=== PATIENT | female | born 1995 | race Two or more races ===

== ENCOUNTER → 2020-07-28 10:43 | Outpatient (BNVA) | payer OTHER, SELFPAY | PROVIDERS: PCP Internal Medicine; Visit Provider Advanced Practice Midwife | DX: Z76.89 Persons encountering health services in other specified circumstances (principal) ==

== ENCOUNTER 2020-08-13 10:23 | Outpatient (REF) | payer OTHER, SELFPAY ==
--- NOTE | 2020-08-13 10:35 | US_ITS ---
EXAMINATION: US OBSTETRICAL CLINICAL INFORMATION: 24-year-old at 19.2 weeks of gestation Suspected anomaly COMPARISON: 06/25/2020 TECHNIQUE: Real-time transabdominal ultrasound was performed using C1-5 megahertz transducer. FINDINGS: A single, active, fetus is seen in vertex presentation. The placenta is anterior without previa, and the amniotic fluid volume is wnl. MEASUREMENTS: 1. Biparietal Diameter: 4.9 cm; 20.6 wks 2. Occipital Frontal Diameter: 6.3 cm 3. Head Circumference: 17.9 cm; 20.3 wks 4. Abdominal Circumference: 16.5 cm; 21.4 wks 5. Femur Length: 3.3 cm; 20.2 wks 6. Humerus Length: 3.23 cm; 20.6 wks 7. Tibia Length: 2.91 cm; 20.5 wks 8. Ulna Length: 3.1 cm; 21.4 wks 9. Lateral ventricle: 0.59 cm 10. Cerebellum: 2.0 cm; 20.5 wks 11. Cisterna Magna: 0.3 cm 12. Nuchal Fold: 5.31 mm 13. Heart Rate: 160 beats per minute Rt ovary: normal Lt ovary: normal Cervical length 4.0 cm on T/A. GESTATIONAL AGE: 1. Established GA: 19.2 wks 2. GA from [facility]: 20.6 wks ESTIMATED DATE OF DELIVERY: 1. Established CRISS: 01/05/2021 2. CRISS from [facility]: 12/25/2020 ANATOMY: The visualized anatomy includes but not limited to: 1. Cranium: Normal 2. Intracranial anatomy: cavum septum pellucidi, lateral ventricles, choroid plexus, cerebellum, posterior fossa, third and fourth ventricles. 3. face: orbits, lip/palate, profile, nasal bone 4. Heart: four-chamber view of the heart, ventricular septum, foramen ovale, pulmonary vein, left and right outflow tracts, three-vessel view, 3 vessel trachea view, aortic and ductal arches, situs.. 5. Diaphragm: Normal 6. Abdominal wall: Normal 7. Cord Insertion: Normal 8. Spine: Cervical, thoracic, lumbar, sacral. 9. Stomach: Normal size and shape 10. Right Kidney: Normal 11. Left Kidney: Normal 12. 3 vessel cord: Normal 13. Upper extremity: Open hands, fifth digit. 14. Lower extremity: Tibia, fibula, bilateral feet. 15. Bladder: Normal 16. Genitalia: Male, patient aware US/US OB /maternal detail IMPRESSION: 1. Single, living, intrauterine with appropriate biometry. 2. Normal survey DISCUSSION: I reviewed today's ultrasound findings. We discussed the limitations of ultrasound in diagnosing aneuploidy and other congenital abnormalities. I reviewed the differences between screening test and diagnostic test. Amniocentesis was discussed and declined. She had low risk N IPT. She was informed that the baseline incidence of congenital abnormalities is approximately 3-5%. Not all these conditions are diagnosable in utero. RECOMMENDATIONS: Thank you for allowing me to participate in her care. Visiting time 25 minutes. Majority of this visit was spent reviewing and discussing her care.
== END 2020-08-13 10:24 | disposition home or self-care (01) ==
LOC: HO.US 10:23
PROVIDERS: Visit Provider Advanced Practice Midwife
DX: Z34.82 Encounter for supervision of other normal pregnancy, second trimester (principal); Z36.3 Encounter for antenatal screening for malformations
CPT/HCPCS: 76811

== ENCOUNTER → 2020-08-23 10:35 | Outpatient (BNVA) | payer OTHER, SELFPAY | PROVIDERS: Visit Provider Obstetrics & Gynecology | DX: Z76.89 Persons encountering health services in other specified circumstances (principal) ==

== ENCOUNTER 2020-09-20 08:50 | Outpatient (REF) | payer OTHER, SELFPAY ==
[2020-09-20 12:03] LABS: Hematocrit 32.5 % (37-47); Mean Corpuscular HGB Conc 30.8 g/dl (31.0-35.0); Mean Corpuscular Hemoglobin 23.9 pg (27.0-33.0); Mean Corpuscular Volume 77.6 fL (80-98); Mean Platelet Volume 9.7 fL (9.4-12.3); Platelet Count 271 X10*3/uL (160-400); Red Blood Count 4.19 X10*6/uL (4.20-5.50); Red Cell Distribution Width 13.9 % (11.0-16.0); White Blood Count 12.9 X10*3/uL (4.8-10.8)
== END 2020-09-20 08:51 | disposition home or self-care (01) ==
LOC: HO.LAB 08:50
PROVIDERS: Visit Provider Advanced Practice Midwife
DX: Z34.82 Encounter for supervision of other normal pregnancy, second trimester (principal)
CPT/HCPCS: 36415; 85027

== ENCOUNTER 2020-09-27 10:16 | Emergency (ER) | payer OTHER, SELFPAY ==
[2020-09-27] VITALS (7 sets, daily range): BP systolic 103–132; BP diastolic 61–80; PULSE 82–137; RESP 20; TEMP 36.6–36.7; O2SAT 99–100; BMI 33.3
--- NOTE | 2020-09-27 10:38 | XR_ITS ---
EXAMINATION: XR CHEST CLINICAL INFORMATION: SOB. COMPARISON: None TECHNIQUE: Frontal view of the chest was obtained. FINDINGS: No significant abnormality is noted involving the heart, lungs, mediastinum, bony thorax or soft tissues. XR/XR chest 1V IMPRESSION: Unremarkable chest examination.
--- NOTE | 2020-09-27 10:38 | ECG_ITS ---
Test Reason : WEAKNESS Blood Pressure : / mmHG Vent. Rate : 109 BPM Atrial Rate : 109 BPM P-R Int : 114 ms QRS Dur : 070 ms QT Int : 320 ms P-R-T Axes : 043 025 047 degrees QTc Int : 430 ms Sinus tachycardia Otherwise normal ECG When compared with ECG of 07-NOV-2018 15:15, No significant change was found Referred By: Nahed Caballero Electronically Signed By:MIGUEL KUMAR
--- NOTE | 2020-09-27 10:55 | ED_ITS ---
HPI - SOB/Dyspnea General Chief Complaint: Dyspnea Stated Complaint: 25WKS PREGANANT,BLURRY VISION,SOB Time Seen by Provider: 09/27/20 10:29 Source: patient and EMS Mode of arrival: EMS History of Present Illness HPI Narrative: 24-year-old female a at 25 weeks gestation presenting to ED complaining of worsening SOB and palpitations x1 month. Also reports associated chills, headache, fatigue, dizziness and episode of blurry vision this morning. Denies vision changes at present. Dizziness described as room spinning, worse with position changes. Admits tested negative for COVID-19 recently. Denies abdominal pain, vaginal bleeding / discharge, CP, recent travel, LE edema, fever. Patient recently seen at [facility] ED for similar symptoms MD elicited complaint: shortness of breath Related Data Home Medications Medication Instructions Recorded Confirmed ondansetron 4 mg disintegrating mg PO DIRECTED 07/28/20 09/21/20 tablet vitamin with calcium 1 tab PO DAILY 07/28/20 09/21/20 no.72-iron 27 mg-folic acid 1 mg tablet pyridoxine (vitamin B6) 25 mg mg PO 07/28/20 09/21/20 tablet albuterol sulfate 90 mcg/actuation INHALATION 09/21/20 09/21/20 aerosol inhaler Previous Rx's Medication Instructions Recorded ferrous sulfate 325 mg (65 mg 325 mg PO DAILY #30 tab 09/20/20 iron) tablet Allergies Allergy/AdvReac Type Severity Reaction Status Date / Time No Known Allergies Allergy Verified 09/21/20 12:12 [No Known Allergies*] Review of Systems Review of Systems: Constitutional: No Weight loss, No Fever, + Chills, No Night Sweats, + Fatigue, + Malaise ENT/Mouth: No Hearing loss, No Ear Pain, No Nasal Congestion, No Sinus Pain, No Hoarseness, No sore throat Eyes: No Eye Pain, No Swelling, + Vision Changes (resolved) Cardiovascular: No Chest Pain, + SOB, + Dyspnea on Exertion, No Edema, + Palpitations Respiratory: No Cough, No Sputum, No Wheezing Gastrointestinal: No Nausea, No Vomiting, No Diarrhea, No Constipation, No Abdominal pain Genitourinary: No irregular bleeding, No Dysuria, No Urinary Frequency, No Hematuria, No vaginal discharge Musculoskeletal: No joint pain, No Myalgias, No Joint Swelling Skin: No Skin Lesions, No rash Neuro: No Weakness, No Numbness, +Dizziness, + Headache Yes all other systems are reviewed and are negative [facility] Past Medical History Attestation statement: The following information was validated with the patient. Medical History History of hysteroscopy Supervision of other normal , antepartum Surgical History Hx of section Hx of myomectomy Family History Family History Family/Other History of breast cancer in female Father Hypertension History of prostate cancer Mother Hypertension Hx of diabetes mellitus Hx of cancer of lung Asthma Sister Hypertension Hx of thyroid disease Maternal Grandfather Hypertension Hx of cancer of lung Maternal Grandmother Hypertension Hx of cardiovascular disorder Paternal Grandfather Hypertension Paternal Grandmother Hypertension Social History Social History Alcohol intake: never Smoking Status: Never smoker Use of substances other than those prescribed or required for medical reasons: No Advance Directives: No Advance Directives Information Provided: No Sexual orientation: Straight/Heterosexual Gender identity: female Physical Exam Vital Signs: Vital Signs: Last Vital Signs Temp 97.9 F 09/27/20 16:28 Pulse 109 H 09/27/20 16:42 Resp 20 09/27/20 16:28 BP 104/65 09/27/20 16:42 Pulse Ox 99 09/27/20 16:28 Body Mass Index 33.3 Const: Other: anxious General: cooperative and healthy appearing Orientation/consciousness: patient oriented x3 Limitations: no limitations HENMT: Head: Yes normal to inspection Ears: hearing grossly normal bilaterally General nose exam: Normal external nose present Face and sinus: Yes normal facial exam Eyes: General: appearance normal, both eyes and all related structures Pupils: Equal, round and reactive pupils present EOM: EOMs intact bilaterally Neck: Neck: Yes normal visual inspection and Yes no meningeal signs Resp: Effort & Inspection: normal respiratory effort Auscultation: clear to auscultation bilaterally, no rales, no rhonchi and no wheezes Cardio: Rate: regular rate Heart sounds: S1 normal heart sound present and S2 normal heart sound present GI: Other: gravid uterus Palpation (GI): Soft to palpation, nontender, no guarding and not rigid Skin: Rashes: no rashes Wounds: no wounds Neuro: General: patient oriented x3 and no meningeal signs Cranial nerves: Yes Equal, round and reactive pupils present Gait exam (Neuro): Normal gait present Extrem: Other: no LE edema or calf tenderness General: Yes normal to inspection Course Course Course Narrative: - mild leukocytosis of 12.8, H&H with slight drop 9.5/30.3 (expected during normal ) -1256-- Obtained records from [facility], patient discharged with albuterol inhaler, was COVID-19 negative, had normal CXR, but was not worked up for PE > will obtain d-dimer -1410-- D-dimer at upper limit of normal at 272 > will obtain bilateral venous duplex ultrasounds - UA contaminated > will obtain repeat - COVID-19/influenza/RSV negative, CXR unremarkable -TSH WNL, B/L venous duplex's negative > consulted VALENTE Bryant and he recommended V/Q scan to r/o PE -1647-- V/Q scan negative --1700-- ED care transferred to [facility] pending repeat UA MDM - SOB/Dyspnea MDM Narrative Medical decision making narrative: 24-year-old female a at 25 weeks gestation presenting to ED complaining of worsening SOB and palpitations x1 month. Also reports associated chills, headache, fatigue, dizziness and e pisode of blurry vision this morning. On exam tachycardic, NAD, anxious, lungs CTA, gravid uterus, abdomen soft/nontender, no LE edema. Concern for COVID- 19/viral syndrome vs thyroid dysfunction vs anxiety. PE on ddx but lower with symptoms x1 month. Lower concern for ACS Plan: EKG, labs, CXR, UA, reassess Lab Data Result diagrams: 09/27/20 11:08 09/27/20 11:08 Labs: Lab Results 09/27/20 09/27/20 09/27/20 Range/Units 11:08 11:08 11:08 WBC 12.8 H (4.8-10.8) X10*3/uL RBC 3.95 L (4.20-5.50) X10*6/uL Hgb 9.5 L (12.0-16.0) g/dl Hct 30.3 L (37-47) % MCV 76.7 L (80-98) fL MCH 24.1 L (27.0-33.0) pg MCHC 31.4 (31.0-35.0) g/dl RDW 14.3 (11.0-16.0) % Plt Count 229 (160-400) X10*3/uL MPV 9.4 (9.4-12.3) fL Immature Gran % (Auto) 1.6 H (0.0-0.4) % Neut % (Auto) 84.8 H (45-73) % Lymph % (Auto) 10.3 L (20-40) % [place] % (Auto) 2.7 (2-11) % Eos % (Auto) 0.4 (0-4) % Baso % (Auto) 0.2 (0-2) % Lymph # (Auto) 1.3 (1.2-4.9) X10*3/uL [place] # (Auto) 0.4 (0.1-1.2) X10*3/uL Eos # (Auto) 0.1 (0.0-0.4) X10*3/uL Baso # (Auto) 0.0 (0.0-0.2) X10*3/uL Abs Immat Gran (auto) 0.21 H (0.00-0.03) X10*3/uL Absolute Neuts (auto) 10.9 H (2.0-8.3) X10*3/uL Absolute Nucleated RBC 0.000 (0.0-0.012) X10*3/uL Nucleated RBC % (auto) 0.0 (0.0-0.2) /100WBC D-Dimer NG/ML Hold Blue Top Sodium 136 (135-145) mmol/L Potassium 3.9 (3.3-5.1) mmol/l Chloride 104 (96-108) mmol/L Carbon Dioxide 23 (22-29) mmol/L Anion Gap 13 (12-20) BUN 10 (9-16) mg/dL Creatinine 0.55 (0.5-1.4) mg/dL Estim Creat Clear Calc 155.6 Estimated GFR > 60 Random Glucose 90 (60-115) mg/dL Calcium 8.8 (8.4-10.2) mg/dL Magnesium 1.7 (1.6-2.6) mg/dL Total Bilirubin 0.5 (0.0-1.0) mg/dL Direct Bilirubin < 0.2 (0.0-0.5) mg/dL AST 13 (5-31) U/L ALT 9 (0-31) U/L Alkaline Phosphatase 82 (39-117) U/L Troponin I High Sens (<3.5-17.0) ng/L B-Natriuretic Peptide (<100) pg/mL Total Protein 6.1 L (6.5-8.0) g/dL Albumin 3.3 L (3.5-5.0) g/dL TSH 0.81 (0.32-4.0) mIU/mL Beta HCG, Quant 70626 mIU/mL Urine Color Urine Appearance Urine pH (5.0-8.0) Ur Specific [place] (1.005-1.025) Urine Protein (NEG-TRACE) MG/DL Urine Glucose (UA) (NEG) MG/DL Urine Ketones (NEG) MG/DL Urine Blood (NEG) Urine Nitrite (NEG) Ur Leukocyte Esterase (NEG) Urine RBC (0) /HPF Urine WBC (0-4) /HPF Ur Squamous Epith Cells /LPF Urine Bacteria /LPF Coronavirus (PCR) NEGATIVE (Negative) Influenza Type A (PCR) NEGATIVE (Negative) Influenza Type B (PCR) NEGATIVE (Negative) RSV RNA Qual (PCR) NEGATIVE (Negative) 09/27/20 09/27/20 09/27/20 Range/Units 11:08 11:08 11:08 WBC (4.8-10.8) X10*3/uL RBC (4.20-5.50) X10*6/uL Hgb (12.0-16.0) g/dl Hct (37-47) % MCV (80-98) fL MCH (27.0-33.0) pg MCHC (31.0-35.0) g/dl RDW (11.0-16.0) % Plt Count (160-400) X10*3/uL MPV (9.4-12.3) fL Immature Gran % (Auto) (0.0-0.4) % Neut % (Auto) (45-73) % Lymph % (Auto) (20-40) % [place] % (Auto) (2-11) % Eos % (Auto) (0-4) % Baso % (Auto) (0-2) % Lymph # (Auto) (1.2-4.9) X10*3/uL [place] # (Auto) (0.1-1.2) X10*3/uL Eos # (Auto) (0.0-0.4) X10*3/uL Baso # (Auto) (0.0-0.2) X10*3/uL Abs Immat Gran (auto) (0.00-0.03) X10*3/uL Absolute Neuts (auto) (2.0-8.3) X10*3/uL Absolute Nucleated RBC (0.0-0.012) X10*3/uL Nucleated RBC % (auto) (0.0-0.2) /100WBC D-Dimer 272 NG/ML Hold Blue Top SEE NOTE Sodium (135-145) mmol/L Potassium (3.3-5.1) mmol/l Chloride (96-108) mmol/L Carbon Dioxide (22-29) mmol/L Anion Gap (12-20) BUN (9-16) mg/dL Creatinine (0.5-1.4) mg/dL Estim Creat Clear Calc Estimated GFR Random Glucose (60-115) mg/dL Calcium (8.4-10.2) mg/dL Magnesium (1.6-2.6) mg/dL Total Bilirubin (0.0-1.0) mg/dL Direct Bilirubin (0.0-0.5) mg/dL AST (5-31) U/L ALT (0-31) U/L Alkaline Phosphatase (39-117) U/L Troponin I High Sens < 3.5 (<3.5-17.0) ng/L B-Natriuretic Peptide 13 (<100) pg/mL Total Protein (6.5-8.0) g/dL Albumin (3.5-5.0) g/dL TSH (0.32-4.0) mIU/mL Beta HCG, Quant mIU/mL Urine Color YELLOW Urine Appearance CLOUDY Urine pH 7.0 (5.0-8.0) Ur Specific [place] 1.010 (1.005-1.025) Urine Protein NEG (NEG-TRACE) MG/DL Urine Glucose (UA) NEG (NEG) MG/DL Urine Ketones NEG (NEG) MG/DL Urine Blood NEG (NEG) Urine Nitrite NEG (NEG) Ur Leukocyte Esterase 2+ H (NEG) Urine RBC 0 (0) /HPF Urine WBC 5-9 H (0-4) /HPF Ur Squamous Epith Cells 4+ /LPF Urine Bacteria 3+ /LPF Coronavirus (PCR) (Negative) Influenza Type A (PCR) (Negative) Influenza Type B (PCR) (Negative) RSV RNA Qual (PCR) (Negative) Discharge Plan Discharge Clinical Impression: Acute dyspnea, Heart palpitations Patient Disposition: Home, Self-Care Instructions: Dyspnea (ED) Additional Instructions: your chest X-ray and ultrasound were within normal limits your blood work was re-assuring in the ED you need to see your OBGYN If you have constant or worsening shortness of breath, chest pain, abdominal pain, nausea, vomiting, vaginal bleeding or discharge return to the ED Prescriptions: No Action albuterol sulfate 90 mcg/actuation HFA aerosol inhaler inhalation RF: 0 ondansetron 4 mg tablet,disintegrating PO DIRECTED RF: 0 pyridoxine (vitamin B6) 25 mg tablet PO RF: 0 PrePlus 27 mg iron- 1 mg tablet 1 tab PO DAILY RF: 0 ferrous sulfate 325 mg (65 mg iron) tablet 325 mg PO DAILY Qty: 30 RF: 4 Referrals: Arun Herman MD [Physician] - 2 days (YOUR OBGYN) Print Language: Greek
[2020-09-27 11:18] LABS: Basophils Percent Auto 0.2 % (0-2); Eosinophils Absolute Auto 0.1 X10*3/uL (0.0-0.4); Eosinophils Percent Auto 0.4 % (0-4); Hematocrit 30.3 % (37-47); Hemoglobin 9.5 g/dl (12.0-16.0); Imm Gran Abs Auto 0.21 X10*3/uL (0.00-0.03); Imm Gran Pct Auto 1.6 % (0.0-0.4); Lymphocytes Absolute Auto 1.3 X10*3/uL (1.2-4.9); Lymphocytes Percent Auto 10.3 % (20-40); MANUAL DIFF FLAG NO; Mean Corpuscular HGB Conc 31.4 g/dl (31.0-35.0); Mean Corpuscular Hemoglobin 24.1 pg (27.0-33.0); Mean Corpuscular Volume 76.7 fL (80-98); Mean Platelet Volume 9.4 fL (9.4-12.3); Monocytes Absolute Auto 0.4 X10*3/uL (0.1-1.2); Monocytes Percent Auto 2.7 % (2-11); Neutrophils Absolute Auto 10.9 X10*3/uL (2.0-8.3); Neutrophils Percent Auto 84.8 % (45-73); Platelet Count 229 X10*3/uL (160-400); Red Blood Count 3.95 X10*6/uL (4.20-5.50); Red Cell Distribution Width 14.3 % (11.0-16.0); White Blood Count 12.8 X10*3/uL (4.8-10.8)
[2020-09-27 11:23] LABS: Glucose Urine UA NEG (NEG); Leukocyte Esterase Urine 2+ (NEG); Nitrite Urine NEG (NEG); Urine Blood NEG (NEG); Urine Ketones NEG (NEG); Urine Protein NEG (NEG-TRACE)
[2020-09-27 11:24] LABS: Appearance Urine CLOUDY; Color Urine YELLOW
[2020-09-27 11:31] LABS: Bacteria Urine 3+ /LPF; RBC Urine 0 /HPF (0); Squamous Epithelial Cell Urine 4+ /LPF
[2020-09-27 12:04] LABS: Alanine Aminotransferase 9 U/L (0-31); Albumin Level 3.3 g/dL (3.5-5.0); Alkaline Phosphatase 82 U/L (39-117); Anion Gap 13 (12-20); Aspartate Amino Transferase 13 U/L (5-31); B Type Natriuretic Peptide 13 pg/mL (<100); Bilirubin Direct < 0.2 mg/dL (0.0-0.5); Bilirubin Total 0.5 mg/dL (0.0-1.0); Blood Urea Nitrogen 10 mg/dL (9-16); Calcium 8.8 mg/dL (8.4-10.2); Carbon Dioxide 23 mmol/L (22-29); Chloride 104 mmol/L (96-108); Creatinine Clr Calc Pharmacy 155.6; Estimated Glomerular Filt Rate > 60; Glucose Random 90 mg/dL (60-115); Magnesium 1.7 mg/dL (1.6-2.6); Potassium 3.9 mmol/l (3.3-5.1); Sodium 136 mmol/L (135-145); Total Protein 6.1 g/dL (6.5-8.0); Troponin-I High Sensitivity < 3.5 ng/L (<3.5-17.0)
[2020-09-27 12:28] LABS: TSH reflex Free T4 0.81 mIU/mL (0.32-4.0)
[2020-09-27 12:37] LABS: Influenza A PCR NEGATIVE (Negative); Influenza B PCR NEGATIVE (Negative); Resp Syncy Virus RNA Qual PCR NEGATIVE (Negative); SARS COV2 PCR INHOUSE NEGATIVE (Negative)
[2020-09-27 13:18] LABS: D Dimer 272 NG/ML
--- NOTE | 2020-09-27 13:56 | US_ITS ---
EXAMINATION: US VENOUS ULTRASOUND WITH DOPPLER LOWER EXTREMITY, BILATERAL CLINICAL INFORMATION: Bilateral lower extremity pain and swelling COMPARISON: None TECHNIQUE: Ultrasound of the deep veins is performed from the hip to the calf with compression sonography and color and pulse Doppler assessment. Spectral analysis with color-flow imaging is performed. FINDINGS: RIGHT: There is normal venous compression and respiratory variation and augmented flow. The visualized common femoral vein, superficial femoral vein, profunda femoral vein, popliteal vein, and the trifurcation region shows no evidence of deep venous thrombosis. There is no significant popliteal fossa cyst. LEFT: There is normal venous compression and respiratory variation and augmented flow. The visualized common femoral vein, superficial femoral vein, profunda femoral vein, popliteal vein, and the trifurcation region shows no evidence of deep venous thrombosis. There is no significant popliteal fossa cyst. US/US venous duplex LE BI IMPRESSION: No evidence of DVT.
--- NOTE | 2020-09-27 14:08 | PC.NURSE ---
provider and interpretter at bedside to update on plan of care, awaiting us for r/o dvt
--- NOTE | 2020-09-27 14:21 | PC.NURSE ---
ultrasound at bedside for study
--- NOTE | 2020-09-27 15:19 | NM_ITS ---
EXAMINATION: PULMONARY PERFUSION STUDY CLINICAL INFORMATION: Rule out pulmonary embolism in . COMPARISON: No previous lung scan is available for comparison. A radiograph the chest dated 09/27/2020, the same date as this lung scan, is available for comparison. TECHNIQUE: Following the intravenous injection of 1.0 mCi Tc-99m MAA, an 8-view perfusion study was performed using a gamma scintillation camera. A reduced dose was administered because the patient is . FINDINGS: No segmental perfusion defects are present. There is homogeneous distribution of activity bilaterally. There are no focal anatomic appearing perfusion defects present. NM/NM pul perfusion IMPRESSION: Normal radionuclide lung perfusion scan.
--- NOTE | 2020-09-27 16:09 | PC.NURSE ---
updated on plan of care, taken to nuc med for perf scan.
[2020-09-27] MEDS: Nitrofurantoin Monohyd/M-Cryst 100 MG CAPSULE PO (18:01)
== END 2020-09-27 18:51 | disposition home or self-care (01) ==
PROVIDERS: Physician Assistant; Emergency Provider Emergency Medicine; PCP Hospitalist
DX: O26.892 Other specified pregnancy related conditions, second trimester (principal); R06.00 Dyspnea, unspecified; R00.2 Palpitations; Z20.828 Contact with and (suspected) exposure to other viral communicable diseases; Z3A.25 25 weeks gestation of pregnancy
CPT/HCPCS: 0241U; 36415; 71045; 78580; 80048; 80076; 81001; 83735; 83880; 84443; 84484; 84702; 85025; 85379; 87086; 93005; 93970; 99284; 99285; A9540

== ENCOUNTER 2020-10-04 08:36 | Outpatient (REF) | payer OTHER, SELFPAY ==
[2020-10-04 12:25] LABS: Glucose 1 Hour PP 50gm Dose 156 mg/dL (60-140)
[2020-10-04 12:47] LABS: HIV AB/AG Nonreactive (Nonreactive); HIV Num 1 0.09 S/CO (0.00-0.99)
[2020-10-04 12:48] LABS: Syphilis Screen Nonreactive (Nonreactive)
== END 2020-10-04 08:37 | disposition home or self-care (01) ==
LOC: HO.LAB 08:36
PROVIDERS: PCP Hospitalist; Visit Provider Advanced Practice Midwife
DX: Z34.82 Encounter for supervision of other normal pregnancy, second trimester (principal)
CPT/HCPCS: 86780; 87389

== ENCOUNTER 2020-10-06 06:18 | Outpatient (REF) | payer OTHER, SELFPAY ==
[2020-10-06 07:41] LABS: Glucose Fasting 98 mg/dL (60-99)
[2020-10-06 08:34] LABS: Glucose 1 Hour 169 mg/dL
[2020-10-06 10:00] LABS: Glucose 2 Hour 152 mg/dL
[2020-10-06 10:43] LABS: Glucose 3 Hour 147 mg/dL
== END 2020-10-06 06:19 | disposition home or self-care (01) ==
LOC: HO.LAB 06:18
PROVIDERS: PCP Hospitalist; Visit Provider Advanced Practice Midwife
DX: O99.810 Abnormal glucose complicating pregnancy (principal); Z3A.00 Weeks of gestation of pregnancy not specified
CPT/HCPCS: 82951

== ENCOUNTER → 2020-10-18 08:59 | Outpatient (BNVA) | payer OTHER, SELFPAY | PROVIDERS: Visit Provider Advanced Practice Midwife | DX: O99.810 Abnormal glucose complicating pregnancy (principal); O34.219 Maternal care for unspecified type scar from previous cesarean delivery; Z79.899 Other long term (current) drug therapy | CPT/HCPCS: 81003; 99212 ==

== ENCOUNTER → 2020-10-19 08:03 | Outpatient (REF) | payer OTHER, SELFPAY ==
--- NOTE | 2020-10-19 08:08 | CA_ITS ---
Transthoracic Echocardiogram Patient (Last, First, Middle): Carol Huertas, Gender: Female Date of : 1995 Age: 24 Procedure Date: 10/19/2020 Procedure Type: Transthoracic Echocardiogram Location: OP Height: 157.48 cm Weight: 85.28 kg BSA: 1.86 m2 Heart Rate: bpm BP: 120 / 68 mmHg [employer] Manager: Referring MD: Andrew Burgess MD Symptoms: R06.02 - Shortness of breath Study Quality: Good ECG Rhythm: Sinus tachycardia Conclusions: - The left ventricular systolic function is normal. The visually estimated ejection fraction is between 60-65%. - There is mild tricuspid valve regurgitation. Findings Left Ventricle Normal left ventricular cavity size. There is normal left ventricular wall thickness. The left ventricular systolic function is normal. The visually estimated ejection fraction is between 60-65%. There is no evidence of regional wall motion abnormalities. Diastolic function is normal for age. Right Ventricle Normal right ventricular cavity size and systolic function. Atria Both atria are normal in size. Aortic Valve There is a normal trileaflet aortic valve. There is no aortic valve stenosis. There is no aortic valve regurgitation. Mitral Valve The mitral valve appears normal. There is no mitral valve regurgitation. There is no mitral valve stenosis. Pulmonic Valve The pulmonic valve was not well visualized. There is trace pulmonic valve regurgitation. Tricuspid Valve Normal tricuspid valve structure. There is mild tricuspid valve regurgitation. The pulmonary artery systolic pressure is normal. Great Vessels The aortic annulus, sinuses of valsalva, and asc aorta are normal in size. Venous The inferior vena cava is normal in size and collapses greater than 50% with inspiration. Pericardium/Pleural There is no evidence of pericardial effusion. Prior Study Comparison No prior study available for comparison. Measurements 2D Linear Measurements IVSd: 0.78 0.6-0.9/0.6-1.0 cm LVIDd: 4.58 3.9-5.3/4.2-5.9 cm LVIDd Index: 2.46 2.4-3.2/2.2-3.1 cm/m2 LVIDs: 2.94 2.0-3.6 cm LVPWd: 0.71 0.7-1.1 cm Ao Root: 2.90 2.1-3.5 cm LA Diam: 3.20 2.7-3.8/3.0-4.0 cm LAIDs Index: 1.72 1.5-2.3 cm/m2 LV Mass: 133.02 67-162/88-224 g LV Mass Index: 71.52 43-95/49-115 g/m2 LVOT Diam: 2.00 3.0+(-)1.3 cm Mitral Valve MV Pk E: 0.51 MV PK A: 0.83 MV Decel Time: 100.00 E/A: 0.60 E'Lateral: 19.40 E'Medial: 14.70 E/E' Med: 3.50 E/E' Lat: 2.60 PHT: 29.00 MVA PHT: 7.59 Decel Woods: 5.08 Aortic Valve AoV Pk Tuan: 1.65 AoV Mn Tuan: 1.17 AoV VTI: 0.33 AoV Pk Grad: 11.00 Aov Mn Grad: 7.00 MIGDALIA Cont.VTI: 2.40 LVOT LVOT Pk Tuan: 1.40 LVOT Mn Tuan: 0.88 LVOT VTI: 0.25 LVOT Pk Grad: 8.00 LVOT Mn Grad: 4.00 LVOT Diam: 2.00 LVOT Area: 3.14 Diastolic Function MV Pk E: 0.51 MV Pk A: 0.83 E/A: 0.60 E'Medial: 14.70 E/E' Med: 3.50 E' Laterial: 19.40 E/E' Lat: 2.60 Tricuspid Valve TR Pk Tuan: 2.60 TR Pk Grad: 27.00 RA Press: 3.00 RVSP: 30.00 Great Vessels Aorta Ao Root-2D: 2.90 2.0-3.7 cm Ao Asc: 3.00 2.1-3.4 cm Pulmonary Valve PV Pk Tuan: 1.34 Peak PV Grad: 7.00 Shunting QP:QS: 2.00 Updated in Other Vendor System with Status of Final Andrew Burgess MD electronically signed on 10/19/2020 11:47:13 AM with status of Final
--- NOTE | 2020-10-19 08:15 | ECG_ITS ---
Hook-up date: 2020-10-19 09:04:00 Duration: 30:13:00 Test Indications: TACHYCARDIA Medications: [id number] QRS complexes * Ventricular ectopics which represent % of total QRS comp. 14 Supraventricular ectopics which represent <1 % of total QRS comp. * Paced QRS complexs which represent % of total QRS comp. VENTRICULAR ECTOPY * Isolated * Bigeminal Cycles * Couplets * Runs * Beats in Runs * Beats LONGEST at * BPM at :: -- * Beats FASTEST at * BPM at :: -- SUPRAVENTRICULAR ECTOPY 14 Isolated 0 Couplets 0 Runs 0 Beats in Runs * Beats LONGEST at * BPM at :: -- * Beats FASTEST at * BPM at :: -- HEART RATES 78 MIN at 04:38:53 2020-10-20 110 AVG 167 MAX at 18:44:33 2020-10-19 LONGEST RR 0.8080 secs at 04:44:10 2020-10-20 S-T LEVELS Channel 1 - 128 mm at 09:04:00 2020-10-19 - 128 mm at 09:04:00 2020-10-19 Channel 2 - 128 mm at 09:04:00 2020-10-19 - 128 mm at 09:04:00 2020-10-19 Channel 3 - 128 mm at 02:82:31 -- - 128 mm at 02:82:31 Basic rhythm Normal sinus rhythm No long pause or profound bradycardia Frequent Sinus tachycardia , 72% of time HR > 100 bpm No dangerous dysrhythm periods Patient reported symptoms of SOB correlated with baseline rhythm Referred By: Andrew Burgess Overread By: АННА LIU MD
== END ==
LOC: HO.CARD 08:03
PROVIDERS: Visit Provider Internal Medicine
DX: R06.02 Shortness of breath (principal); R00.0 Tachycardia, unspecified
CPT/HCPCS: 93225; 93226; 93306

== ENCOUNTER → 2020-10-28 14:09 | Outpatient (BNVA) | payer OTHER, SELFPAY | PROVIDERS: PCP Hospitalist; Visit Provider Obstetrics & Gynecology | DX: Z34.82 Encounter for supervision of other normal pregnancy, second trimester (principal) | CPT/HCPCS: 99212 ==

== ENCOUNTER → 2020-11-05 14:15 | Outpatient (BNVA) | payer OTHER, SELFPAY | PROVIDERS: PCP Hospitalist; Visit Provider Obstetrics & Gynecology | DX: Z34.82 Encounter for supervision of other normal pregnancy, second trimester (principal); O34.219 Maternal care for unspecified type scar from previous cesarean delivery | CPT/HCPCS: 99212 ==

== ENCOUNTER → 2020-11-11 14:03 | Outpatient (BNVA) | payer OTHER, SELFPAY | PROVIDERS: PCP Hospitalist; Visit Provider Internal Medicine ==

== ENCOUNTER 2021-06-28 09:33 | Outpatient (REF) | payer OTHER, SELFPAY | END 2021-06-28 09:34 | disposition home or self-care (01) | LOC: HO.LAB 09:33 | PROVIDERS: PCP Hospitalist; Visit Provider Internal Medicine | DX: Z20.822 Contact with and (suspected) exposure to COVID-19 (principal) | CPT/HCPCS: C9803; U0003; U0005 ==

== ENCOUNTER 2021-09-12 06:43 | Day surgery (SDC) | payer OTHER, SELFPAY ==
[2021-09-12] VITALS (14 sets, daily range): BP systolic 90–113; BP diastolic 23–78; PULSE 69–96; RESP 14–20; TEMP 36.2–37.1; O2SAT 97–100; BMI 29.3
--- NOTE | ~2021-09-12 | US_ITS ---
EXAMINATION: US OBSTETRICAL ULTRASOUND CLINICAL INFORMATION: Left lower quadrant pain and positive test COMPARISON: None. LMP: Unsure TECHNIQUE: Transabdominal and transvaginal pelvic ultrasound was performed. Transvaginal exam was performed for better visualization of the uterus and ovaries. FINDINGS: The uterus is anteverted and retroflexed and measures 12 x 4.8 x 5.7 cm in dimension. Endometrial thickness measures 0.6 cm. No intrauterine is seen. The right ovary is normal-appearing and measures 3 x 2.3 x 2.3 cm. Left ovary measures 4.6 x 4.9 x 4.2 cm and is enlarged. There is a 3.9 x 4.1 x 4.3 cm minimally complex left ovarian cyst. Adjacent to the medial left ovary in the left adnexa is a thick-walled cyst measuring 1.9 x 1.7 x 1.7 cm. This contains a smaller simple cyst measuring 0.2 cm suggestive of an ectopic with yolk sac. There is a large amount of complex fluid seen in the pelvis. There is also more solid-appearing hyperechoic soft tissue in the posterior cul-de-sac suggestive of blood clot. This measures approximately 3 x 4 cm. Findings are suggestive of hemoperitoneum or ruptured ectopic . US/US OB <= 14 weeks fetus IMPRESSION: Left adnexal ectopic with yolk sac. Large amount of complex fluid in the pelvis and more echogenic solid appearing area suggestive of hemoperitoneum/blood clot. Findings are suggestive of a ruptured ectopic . Findings were communicated to Dr. Desouza by the research technologist on 09/12/2021 at 11:45 AM and at the completion of the dictation on 09/12/2021 at 11:53 AM.
--- NOTE | ~2021-09-12 | US_ITS ---
EXAMINATION: US OBSTETRICAL ULTRASOUND CLINICAL INFORMATION: Left lower quadrant pain and positive test COMPARISON: None. LMP: Unsure TECHNIQUE: Transabdominal and transvaginal pelvic ultrasound was performed. Transvaginal exam was performed for better visualization of the uterus and ovaries. FINDINGS: The uterus is anteverted and retroflexed and measures 12 x 4.8 x 5.7 cm in dimension. Endometrial thickness measures 0.6 cm. No intrauterine is seen. The right ovary is normal-appearing and measures 3 x 2.3 x 2.3 cm. Left ovary measures 4.6 x 4.9 x 4.2 cm and is enlarged. There is a 3.9 x 4.1 x 4.3 cm minimally complex left ovarian cyst. Adjacent to the medial left ovary in the left adnexa is a thick-walled cyst measuring 1.9 x 1.7 x 1.7 cm. This contains a smaller simple cyst measuring 0.2 cm suggestive of an ectopic with yolk sac. There is a large amount of complex fluid seen in the pelvis. There is also more solid-appearing hyperechoic soft tissue in the posterior cul-de-sac suggestive of blood clot. This measures approximately 3 x 4 cm. Findings are suggestive of hemoperitoneum or ruptured ectopic . US/US OB transvaginal IMPRESSION: Left adnexal ectopic with yolk sac. Large amount of complex fluid in the pelvis and more echogenic solid appearing area suggestive of hemoperitoneum/blood clot. Findings are suggestive of a ruptured ectopic . Findings were communicated to Dr. Desouza by the cardiac cath lab technologist on 09/12/2021 at 11:45 AM and at the completion of the dictation on 09/12/2021 at 11:53 AM.
--- NOTE | 2021-09-12 07:23 | ED.ABDPAIN ---
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 Mode of arrival: ambulatory Limitations: no limitations History of Present Illness MD elicited complaint: abdominal pain Pertinent past history: none Onset (ago): day(s) (1) Pain Consistency: constant Location: LLQ Severity: moderate Quality: stabbing Radiation: none Migration to: no migration Exacerbating factors: movement Relieving factors: nothing Associated symptoms: nausea Related Data Home Medications Medication Instructions Recorded Confirmed pyridoxine (vitamin B6) 25 mg mg PO 07/28/20 07/26/21 tablet Previous Rx's Medication Instructions Recorded ferrous sulfate 325 mg (65 mg 325 mg PO BID #30 tab 10/04/20 iron) tablet FreeStyle Lite Strips (blood sugar 4 strip MISCELLANEOUS QID 30 Days 10/12/20 diagnostic) #100 strip NS alcohol swabs (Alcohol Wipes) 4 pad TOPICAL .4x day 90 Days #100 10/12/20 ea blood-glucose meter (FreeStyle #1 ea 10/12/20 [place] Lite) lancets 28 gauge (FreeStyle #100 ea 10/12/20 Lancets) cyclobenzaprine 5 mg tablet 5 mg PO TID PRN 30 Days #30 tab 07/12/21 ibuprofen 600 mg tablet 600 mg PO Q8H PRN 30 Days #90 tab 07/12/21 Allergies Allergy/AdvReac Type Severity Reaction Status Date / Time No Known Allergies Allergy Verified 07/26/21 13:19 [No Known Allergies*] Review of Systems Review of Systems Constitutional : No Weight loss, No Fever, No Chills ENT/Mouth : No sore throat, No Rhinorrhea Eyes: No Swelling, No Redness Cardiovascular : No Chest Pain, No SOB, NoEdema Respiratory : No Cough, No Sputum, No Wheezing Gastrointestinal : Positive Nausea, no Vomiting, no Diarrhea, positive abdominal Pain, No Hematochezia, No Melena Genitourinary : No Dysuria, No Urinary Frequency, No Hematuria, No Urgency Musculoskeletal : No joint pain, No Myalgias, No Joint Swelling Skin : No Skin Lesions, No rash Neuro : No Weakness, No Numbness, pos Dizziness, No Headache Psych : No Anxiety/Panic, No Depression Heme/Lymph: No Bruising, No Lymphadenopathy Endocrine : No Polyuria, No Polydipsia All other systems reviewed and are negative. Physical Exam Vital Signs: Vital Signs: Last Vital Signs Temp 98.8 F 09/12/21 11:44 Pulse 71 09/12/21 11:44 Resp 20 09/12/21 11:44 BP 110/78 09/12/21 11:44 Pulse Ox 100 09/12/21 11:44 Body Mass Index 29.3 Appearance: Alert. Oriented X3. No acute distress. Eyes: Pupils equal, round and reactive to light. ENT: Pharynx normal. Neck: Normal inspection. Neck supple. CVS: Normal heart rate and rhythm. Pulses normal. Respiratory: No respiratory distress. Breath sounds normal. Abdomen: Soft and moderate ttp in LLQ no rebound Skin: Skin warm and dry. Normal skin color. Normal skin turgor. Extremities: No lower extremity edema. No calf ttp Neuro: Oriented X 3. No motor deficit. No sensory deficit. Course Course Course Narrative: + test the patient told us she had tubal ligation and was not - informed her of toradol though low risk and will switch to US to r/o ectopic US called 1137am - large amount of free fluid, COVID, type and screen ordered, L sided ectopic with likely rupture Dr. Herman aware 1144am to go to OR, patient NPO since last night BP 110/78 HR 79 MDM - Abdominal Pain MDM Narrative Medical decision making narrative: 25 yo female with no sig PMH here with c/o LLQ pain no diarrhea at this time will need labs, IVF IV toradol for pain, CT scan of LLQ to evaluate for possible cyst, diverticulitis, renal colic. Dispo pe results and findings. Differential Diagnosis Differential diagnosis: Likely abdominal pain, calculus of kidney, constipation and diverticulitis; Unlikely aortic dissection or acute appendicitis Lab Data Result diagrams: 09/12/21 07:37 09/12/21 07:37 Labs: Lab Results 09/12/21 09/12/21 09/12/21 Range/Units 07:37 07:37 08:43 WBC 15.9 H (4.8-10.8) X10*3/uL RBC 4.78 (4.20-5.50) X10*6/uL Hgb 10.1 L (12.0-16.0) g/dl Hct 34.4 L (37.0-47.0) % MCV 72.0 L (80.0-98.0) fL MCH 21.1 L (27.0-33.0) pg MCHC 29.4 L (31.0-35.0) g/dl RDW 15.5 (11.0-16.0) % Plt Count 337 (160-400) X10*3/uL MPV 10.1 (9.4-12.3) fL Immature Gran % (Auto) 0.4 (0.0-0.4) % Neut % (Auto) 85.2 H (45-73) % Lymph % (Auto) 11.5 L (20-40) % [place] % (Auto) 2.2 (2-11) % Eos % (Auto) 0.4 (0-4) % Baso % (Auto) 0.3 (0-2) % Lymph # (Auto) 1.8 (1.2-4.9) X10*3/uL [place] # (Auto) 0.4 (0.1-1.2) X10*3/uL Eos # (Auto) 0.1 (0.0-0.4) X10*3/uL Baso # (Auto) 0.1 (0.0-0.2) X10*3/uL Abs Immat Gran (auto) 0.06 H (0.00-0.03) X10*3/uL Absolute Neuts (auto) 13.6 H (2.0-8.3) x10*3/uL Absolute Nucleated RBC 0.000 (0.0-0.012) X10*3/uL Nucleated RBC % (auto) 0.0 (0.0-0.2) /100WBC Sodium 137 (135-145) mmol/L Potassium 4.2 (3.3-5.1) mmol/L Chloride 107 (96-108) mmol/L Carbon Dioxide 21 L (22-29) mmol/L Anion Gap 13 (12-20) BUN 13 (9-16) mg/dL Creatinine 0.71 (0.5-1.4) mg/dL Estim Creat Clear Calc 121.2 Estimated GFR > 60 Random Glucose 102 (60-115) mg/dL Calcium 8.7 (8.4-10.2) mg/dL Magnesium 1.9 (1.6-2.6) mg/dL Total Bilirubin 0.3 (0.0-1.0) mg/dL Direct Bilirubin < 0.2 (0.0-0.5) mg/dL AST 15 (5-31) U/L ALT 13 (0-31) U/L Alkaline Phosphatase 61 D (39-117) U/L Total Protein 7.3 (6.5-8.0) g/dL Albumin 4.4 D (3.5-5.0) g/dL Lipase 22 (8-78) U/L Beta HCG, Quant 5929 mIU/mL Urine Color YELLOW Urine Appearance CLEAR Urine pH 6.0 (5.0-8.0) Ur Specific [place] 1.020 (1.005-1.025) Urine Protein NEG (NEG-TRACE) MG/DL Urine Glucose (UA) NEG (NEG) MG/DL Urine Ketones NEG (NEG) MG/DL Urine Blood NEG (NEG) Urine Nitrite NEG (NEG) Ur Leukocyte Esterase TRACE H (NEG) Urine RBC 0-2 (0) /HPF Urine WBC 1-4 (0-4) /HPF Ur Squamous Epith Cells 2+ /LPF Urine Bacteria TRACE /LPF Urine Mucus TRACE /LPF Urine Test (NEGATIVE) 09/12/21 Range/Units 08:43 WBC (4.8-10.8) X10*3/uL RBC (4.20-5.50) X10*6/uL Hgb (12.0-16.0) g/dl Hct (37.0-47.0) % MCV (80.0-98.0) fL MCH (27.0-33.0) pg MCHC (31.0-35.0) g/dl RDW (11.0-16.0) % Plt Count (160-400) X10*3/uL MPV (9.4-12.3) fL Immature Gran % (Auto) (0.0-0.4) % Neut % (Auto) (45-73) % Lymph % (Auto) (20-40) % [place] % (Auto) (2-11) % Eos % (Auto) (0-4) % Baso % (Auto) (0-2) % Lymph # (Auto) (1.2-4.9) X10*3/uL [place] # (Auto) (0.1-1.2) X10*3/uL Eos # (Auto) (0.0-0.4) X10*3/uL Baso # (Auto) (0.0-0.2) X10*3/uL Abs Immat Gran (auto) (0.00-0.03) X10*3/uL Absolute Neuts (auto) (2.0-8.3) x10*3/uL Absolute Nucleated RBC (0.0-0.012) X10*3/uL Nucleated RBC % (auto) (0.0-0.2) /100WBC Sodium (135-145) mmol/L Potassium (3.3-5.1) mmol/L Chloride (96-108) mmol/L Carbon Dioxide (22-29) mmol/L Anion Gap (12-20) BUN (9-16) mg/dL Creatinine (0.5-1.4) mg/dL Estim Creat Clear Calc Estimated GFR Random Glucose (60-115) mg/dL Calcium (8.4-10.2) mg/dL Magnesium (1.6-2.6) mg/dL Total Bilirubin (0.0-1.0) mg/dL Direct Bilirubin (0.0-0.5) mg/dL AST (5-31) U/L ALT (0-31) U/L Alkaline Phosphatase (39-117) U/L Total Protein (6.5-8.0) g/dL Albumin (3.5-5.0) g/dL Lipase (8-78) U/L Beta HCG, Quant mIU/mL Urine Color Urine Appearance Urine pH (5.0-8.0) Ur Specific [place] (1.005-1.025) Urine Protein (NEG-TRACE) MG/DL Urine Glucose (UA) (NEG) MG/DL Urine Ketones (NEG) MG/DL Urine Blood (NEG) Urine Nitrite (NEG) Ur Leukocyte Esterase (NEG) Urine RBC (0) /HPF Urine WBC (0-4) /HPF Ur Squamous Epith Cells /LPF Urine Bacteria /LPF Urine Mucus /LPF Urine Test POSITIVE H (NEGATIVE) Critical Care Time Critical Care Time Critical Care Time: Yes Total Critical Care Time: 45 Attestation: medical consult, IVF, type and screen, review of records, transfer to surgery I attest to this time spent taking care of the patient Discharge Plan Discharge Clinical Impression: Ruptured ectopic Abdominal pain Qualifiers: Abdominal location: left lower quadrant Qualified Code(s): R10.32 - Left lower quadrant pain Patient Disposition: Admitted As Inpatient [facility] Past Medical History Attestation statement: The following information was validated with the patient. Medical History Supervision of other normal , antepartum Surgical History History of hysteroscopy Hx of section Hx of myomectomy Family History Family History Family/Other History of breast cancer in female Father Hypertension History of prostate cancer Mother Hypertension Hx of diabetes mellitus Hx of cancer of lung Asthma Sister Hypertension Hx of thyroid disease Maternal Grandfather Hypertension Hx of cancer of lung Maternal Grandmother Hypertension Hx of cardiovascular disorder Paternal Grandfather Hypertension Paternal Grandmother Hypertension Social History Social History Housing: House Alcohol intake: never Patient Tobacco Use Status: Never used Tobacco e-Cigarette/Vaping Use: Never Used Second Hand Smoke Exposure: No Advance Directives: No Advance Directives Information Provided: Yes Patient : No service: No Current occupational status: unemployed Sexual orientation: Straight/Heterosexual Gender identity: Female
[2021-09-12] MEDS: Ketorolac Tromethamine 15 MG/ML VIAL 30 MG IVPUSH (07:41)
[2021-09-12] MEDS: ondansetron HCL 4 MG/2 ML VIAL IVPUSH (07:41)
[2021-09-12] MEDS: 0.9 % Sodium Chloride 1,000 ML 999 ML IVCONT (07:45)
[2021-09-12 07:48] LABS: MANUAL DIFF FLAG NO
[2021-09-12 07:50] LABS: Basophils Absolute Auto 0.1 X10*3/uL (0.0-0.2); Basophils Percent Auto 0.3 % (0-2); Eosinophils Absolute Auto 0.1 X10*3/uL (0.0-0.4); Eosinophils Percent Auto 0.4 % (0-4); Hematocrit 34.4 % (37.0-47.0); Hemoglobin 10.1 g/dl (12.0-16.0); Imm Gran Abs Auto 0.06 X10*3/uL (0.00-0.03); Imm Gran Pct Auto 0.4 % (0.0-0.4); Lymphocytes Absolute Auto 1.8 X10*3/uL (1.2-4.9); Lymphocytes Percent Auto 11.5 % (20-40); Mean Corpuscular HGB Conc 29.4 g/dl (31.0-35.0); Mean Corpuscular Hemoglobin 21.1 pg (27.0-33.0); Mean Platelet Volume 10.1 fL (9.4-12.3); Monocytes Absolute Auto 0.4 X10*3/uL (0.1-1.2); Monocytes Percent Auto 2.2 % (2-11); Neutrophils Absolute Auto 13.6 x10*3/uL (2.0-8.3); Neutrophils Percent Auto 85.2 % (45-73); Platelet Count 337 X10*3/uL (160-400); Red Blood Count 4.78 X10*6/uL (4.20-5.50); Red Cell Distribution Width 15.5 % (11.0-16.0); White Blood Count 15.9 X10*3/uL (4.8-10.8)
[2021-09-12 08:11] LABS: Alanine Aminotransferase 13 U/L (0-31); Albumin Level 4.4 g/dL (3.5-5.0); Alkaline Phosphatase 61 U/L (39-117); Anion Gap 13 (12-20); Aspartate Amino Transferase 15 U/L (5-31); Bilirubin Direct < 0.2 mg/dL (0.0-0.5); Bilirubin Total 0.3 mg/dL (0.0-1.0); Blood Urea Nitrogen 13 mg/dL (9-16); Calcium 8.7 mg/dL (8.4-10.2); Carbon Dioxide 21 mmol/L (22-29); Chloride 107 mmol/L (96-108); Creatinine Clr Calc Pharmacy 121.2; Estimated Glomerular Filt Rate > 60; Glucose Random 102 mg/dL (60-115); Lipase 22 U/L (8-78); Magnesium 1.9 mg/dL (1.6-2.6); Potassium 4.2 mmol/L (3.3-5.1); Sodium 137 mmol/L (135-145); Total Protein 7.3 g/dL (6.5-8.0)
[2021-09-12 08:50] LABS: Appearance Urine CLEAR; Color Urine YELLOW; Glucose Urine UA NEG (NEG); Leukocyte Esterase Urine TRACE (NEG); Nitrite Urine NEG (NEG); UACC Culture Trigger YES; UPreg QC Valid YES; Urine Blood NEG (NEG); Urine Ketones NEG (NEG); Urine Pregnancy POSITIVE (NEGATIVE); Urine Protein NEG (NEG-TRACE)
[2021-09-12 08:59] LABS: RBC Urine 0-2 /HPF (0); Squamous Epithelial Cell Urine 2+ /LPF
[2021-09-12 09:00] LABS: Bacteria Urine TRACE /LPF; Mucus Urine TRACE /LPF
[2021-09-12 09:51] LABS: HCG Quantitative 5929 mIU/mL
--- NOTE | 2021-09-12 11:57 | P.CONOB_ITS ---
[employer] - CN: HPI Data of Consult Consult date: 09/12/21 Primary Care Provider: Unknown Physician Consult Narrative Narrative: I was consulted on Carol Huertas who is a 25 year old female who presented emergency room with left lower quadrant pain since yesterday that increase in nature became very severe prior to presentation to emergency room LMP is unknown patient has history of laparoscopic tubal sterilization 9 months ago a stage. Urine test done with the emergency room was positive, but hCG came back as 5929, pelvic ultrasound done showed the following: Left adnexal ectopic with yolk sac. Large amount of complex fluid in the pelvis and more echogenic solid appearing area suggestive of hemoperitoneum/blood clot. Findings are suggestive of a ruptured ectopic . 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 Systems Review of Systems ROS Unobtainable: All systems reviewed & are unremarkable except as noted in HPI and below Cardiovascular: Denies Palpatations, Loss of consciousness or Chest pain Respiratory: Denies Cough, Wheezing or Shortness of breath Musculoskeletal: Denies Low back pain Gastrointestinal: Denies Heartburn, Constipation, Diarrhea, Nausea or Vomiting Genitourinary: Denies Pain with urination, Burning with urination or Urinary frequency Neurological: Denies Migranes Psychological: Denies Depression OB [facility] Past Medical History Medical History (Updated 09/12/21 @ 12:51 by Arun Herman MD) Sterilization Supervision of other normal , antepartum Family History Family History Family/Other History of breast cancer in female Father Hypertension History of prostate cancer Mother Hypertension Hx of diabetes mellitus Hx of cancer of lung Asthma Sister Hypertension Hx of thyroid disease Maternal Grandfather Hypertension Hx of cancer of lung Maternal Grandmother Hypertension Hx of cardiovascular disorder Paternal Grandfather Hypertension Paternal Grandmother Hypertension Surgical History Surgical History History of hysteroscopy Hx of section Hx of myomectomy Social History Social History Housing: House Alcohol intake: never Patient Tobacco Use Status: Never used Tobacco e-Cigarette/Vaping Use: Never Used Second Hand Smoke Exposure: No Advance Directives: No Advance Directives Information Provided: Yes Patient : No service: No Current occupational status: unemployed Sexual orientation: Straight/Heterosexual Gender identity: Female Meds Allergies Allergy/AdvReac Type Severity Reaction Status Date / Time No Known Allergies Allergy Verified 07/26/21 13:19 [No Known Allergies*] Active Medications: Current Medications Sodium Chloride (Ns) 1,000 mls @ 999 mls/hr IV .Q1H1M KAY Stop: 09/12/21 13:00 Home Medications Medication Instructions Recorded Confirmed Last Taken Type pyridoxine (vitamin B6) 25 mg mg PO 07/28/20 07/26/21 Unknown History tablet [employer] Physical Exam Vitals Vital signs: Temp Pulse Resp BP Pulse Ox 98.8 F 71 20 110/78 100 09/12/21 11:44 09/12/21 11:44 09/12/21 11:44 09/12/21 11:44 09/12/21 11:44 Body Mass Index 29.3 Constitutional General Appearance: Healthy appearing, Well-nourished and Well-developed Psychiatric Mood and Affect: active and alert, normal mood and normal affect Skin Appearance: No rashes and No lesions Lungs Respiratory Effort: No intercostal retractions Auscultation: Clear to auscultation Cardiovascular Auscultation: RRR Abdomen Auscultation/Inspection/Palpation: Normal bowel sounds, Tenderness, Guarding and Rebound tenderness Female Genitalia (Pelvic) Exam: Deferred [employer] - Results Labs CBC & Chem 7: 09/12/21 07:37 09/12/21 07:37 Labs: Short CBC 09/12/21 Range/Units 07:37 WBC 15.9 H (4.8-10.8) X10*3/uL Hgb 10.1 L (12.0-16.0) g/dl Hct 34.4 L (37.0-47.0) % Plt Count 337 (160-400) X10*3/uL BMP 09/12/21 07:37 Sodium 137 Potassium 4.2 Chloride 107 Carbon Dioxide 21 L BUN 13 Creatinine 0.71 Calcium 8.7 Liver Function 09/12/21 Range/Units 07:37 Total Bilirubin 0.3 (0.0-1.0) mg/dL Direct Bilirubin < 0.2 (0.0-0.5) mg/dL AST 15 (5-31) U/L ALT 13 (0-31) U/L Alkaline Phosphatase 61 D (39-117) U/L Albumin 4.4 D (3.5-5.0) g/dL Urine 09/12/21 09/12/21 Range/Units 08:43 08:43 Urine Color YELLOW Urine Appearance CLEAR Urine pH 6.0 (5.0-8.0) Ur Specific [place] 1.020 (1.005-1.025) Urine Protein NEG (NEG-TRACE) MG/DL Urine Glucose (UA) NEG (NEG) MG/DL Urine Test POSITIVE H (NEGATIVE) Imaging US - abdomen: Radiologist's impression: ITS Impressions Ultrasound 09/12/21 08:54 IMPRESSION: Left adnexal ectopic with yolk sac. Large amount of complex fluid in the pelvis and more echogenic solid appearing area suggestive of hemoperitoneum/blood clot. Findings are suggestive of a ruptured ectopic . Findings were communicated to Dr. Desouza by the vascular technologist sonographer on 09/12/2021 at 11:45 AM and at the completion of the dictation on 09/12/2021 at 11:53 AM. Transvaginal US 09/12/21 08:54 IMPRESSION: Left adnexal ectopic with yolk sac. Large amount of complex fluid in the pelvis and more echogenic solid appearing area suggestive of hemoperitoneum/blood clot. Findings are suggestive of a ruptured ectopic . Findings were communicated to Dr. Desouza by the vascular technologist sonographer on 09/12/2021 at 11:45 AM and at the completion of the dictation on 09/12/2021 at 11:53 AM. Assessment and Plan (1) Ruptured ectopic : Status: Acute Discussed with the patient the clinical scenario pointing towards ruptured ectopic with hemoperitoneum. Recommended laparoscopic left salpingectomy, since the patient had tubal sterilization and is interested in permanent sterilization, possible bilateral salpingectomies, possible laparotomy discussed with the patient benefits the risks including bleeding, infection, possible injury to bladder, bowel ureter, blood vessels, possible need for blood transfusion. All questions answered, the patient verbalized understanding, agreed with the plan and signed the consent. Type and screen sent.
[2021-09-12 12:02] LABS: COVID-19 Test Negative (Negative)
[2021-09-12] MEDS: 0.9 % Sodium Chloride 1,000 ML 999 ML IV (12:11)
--- NOTE | 2021-09-12 12:53 | MHC.SHP ---
Pre-Procedural Eval Section A Date of Service: 09/12/21 The patient is an INPATIENT: No Changes since office visit: No Cold of Flu in the past 2 weeks, No New Medical Problems, No Changes in Medication and No Patient answered all questions The History & Physical has been completed within 30 days and I have reviewed it.: Yes Section B Chief Complaint: stomach pain, nausea Allergies: Allergies Allergy/AdvReac Type Severity Reaction Status Date / Time No Known Allergies Allergy Verified 07/26/21 13:19 [No Known Allergies*] Plan Diagnosis/Plan: Unchanged I have reviewed the history and physical and performed a pertinent physical examination on my patient. No changes have occurred unless specified.
--- NOTE | 2021-09-12 13:11 | P.CONAN_ITS ---
[facility] Active Problems Active Problems: All Active Problems (Updated 09/12/21 @ 12:51 by Arun Herman MD) Ruptured ectopic (Acute) Abdominal pain (Acute) Back ache (Acute) Hx of section complicating (Acute) Abnormal glucose affecting (Acute) SOB (shortness of breath) (Acute) Tachycardia (Acute) Encounter for supervision of other normal , second trimester (Acute) Past Medical History Medical History Sterilization Supervision of other normal , antepartum Family History Family History Family/Other History of breast cancer in female Father Hypertension History of prostate cancer Mother Hypertension Hx of diabetes mellitus Hx of cancer of lung Asthma Sister Hypertension Hx of thyroid disease Maternal Grandfather Hypertension Hx of cancer of lung Maternal Grandmother Hypertension Hx of cardiovascular disorder Paternal Grandfather Hypertension Paternal Grandmother Hypertension Surgical History Surgical History History of hysteroscopy Hx of section Hx of myomectomy History of Problems with Anesthesia: No Social History Social History Housing: House Alcohol intake: never Patient Tobacco Use Status: Never used Tobacco e-Cigarette/Vaping Use: Never Used Second Hand Smoke Exposure: No Use of substances other than those prescribed or required for medical reasons: No Are you DNR?: No Advance Directives: No Advance Directives Information Provided: Yes Patient : No service: No Current occupational status: unemployed Sexual orientation: Straight/Heterosexual Gender identity: Female Meds Allergies Allergy/AdvReac Type Severity Reaction Status Date / Time No Known Allergies Allergy Verified 07/26/21 13:19 [No Known Allergies*] Home Medications Medication Instructions Recorded Confirmed Last Taken Type pyridoxine (vitamin B6) 25 mg mg PO 07/28/20 07/26/21 Unknown History tablet Exam Exam Date and Time: September 12, 2021 1311 Height,Weight and Vital Signs: Height 5 ft 4.17 in Weight 77.9 kg Last Vital Signs Temp 98.8 F 09/12/21 11:44 Pulse 69 09/12/21 12:04 Resp 20 09/12/21 12:04 BP 111/67 09/12/21 12:04 Pulse Ox 100 11/22/21 12:04 Pertinent Lab Results Pertinent Lab Results: Laboratory Tests 09/12/21 09/12/21 09/12/21 07:37 07:37 08:43 WBC 15.9 H RBC 4.78 Hgb 10.1 L Hct 34.4 L MCV 72.0 L MCH 21.1 L MCHC 29.4 L RDW 15.5 Plt Count 337 MPV 10.1 Immature Gran % (Auto) 0.4 Neut % (Auto) 85.2 H Lymph % (Auto) 11.5 L [place] % (Auto) 2.2 Eos % (Auto) 0.4 Baso % (Auto) 0.3 Lymph # (Auto) 1.8 [place] # (Auto) 0.4 Eos # (Auto) 0.1 Baso # (Auto) 0.1 Abs Immat Gran (auto) 0.06 H Absolute Neuts (auto) 13.6 H Absolute Nucleated RBC 0.000 Nucleated RBC % (auto) 0.0 Sodium 137 Potassium 4.2 Chloride 107 Carbon Dioxide 21 L Anion Gap 13 BUN 13 Creatinine 0.71 Estim Creat Clear Calc 121.2 Estimated GFR > 60 Random Glucose 102 Calcium 8.7 Magnesium 1.9 Total Bilirubin 0.3 Direct Bilirubin < 0.2 AST 15 ALT 13 Alkaline Phosphatase 61 D Total Protein 7.3 Albumin 4.4 D Lipase 22 Beta HCG, Quant 5929 Urine Color YELLOW Urine Appearance CLEAR Urine pH 6.0 Ur Specific [place] 1.020 Urine Protein NEG Urine Glucose (UA) NEG Urine Ketones NEG Urine Blood NEG Urine Nitrite NEG Ur Leukocyte Esterase TRACE H Urine RBC 0-2 Urine WBC 1-4 Ur Squamous Epith Cells 2+ Urine Bacteria TRACE Urine Mucus TRACE Urine Test COVID-19 ([facility]) COVID-19 Clin Com Blood Type Antibody Screen 09/12/21 09/12/21 09/12/21 08:43 11:40 11:50 WBC RBC Hgb Hct MCV MCH MCHC RDW Plt Count MPV Immature Gran % (Auto) Neut % (Auto) Lymph % (Auto) [place] % (Auto) Eos % (Auto) Baso % (Auto) Lymph # (Auto) [place] # (Auto) Eos # (Auto) Baso # (Auto) Abs Immat Gran (auto) Absolute Neuts (auto) Absolute Nucleated RBC Nucleated RBC % (auto) Sodium Potassium Chloride Carbon Dioxide Anion Gap BUN Creatinine Estim Creat Clear Calc Estimated GFR Random Glucose Calcium Magnesium Total Bilirubin Direct Bilirubin AST ALT Alkaline Phosphatase Total Protein Albumin Lipase Beta HCG, Quant Urine Color Urine Appearance Urine pH Ur Specific [place] Urine Protein Urine Glucose (UA) Urine Ketones Urine Blood Urine Nitrite Ur Leukocyte Esterase Urine RBC Urine WBC Ur Squamous Epith Cells Urine Bacteria Urine Mucus Urine Test POSITIVE H COVID-19 ([facility]) Negative COVID-19 Clin Com See Note Blood Type A Positive Antibody Screen NEGATIVE Airway Mallampati Class: II (Braces) TM Dist: >3cm Neck ROM: Full Loose/Missing/Broken Teeth: No Heart: RRR Lungs: CTA Assessment and Plan Assessment Anesthesia Assessment: Anesthesia Plan Discussed and Chart Reviewed Final Anesthetic Review History of Problems with Anesthesia: No NPO: Yes ASA Class: II Final Preanesthetic Review: Meds/Allgs Chart Reviewed, Consent Obtained/Reviewed and Anes Risks/Benef Reviewed Patient Risk: Low Procedure Risk: Intermediate Anesthetic Plan Anesthetic Plan: GA Disposition: Standard PACU
--- NOTE | 2021-09-12 13:34 | PC.NURSE ---
Left arm PRN angio #20 flushed well. Site asymptomatic.
--- NOTE | 2021-09-12 15:27 | P.BOP_ITS ---
Brief Operative Note Date of Service: 09/12/21 Pre-op diagnosis: Ruptured left ectopic tubal with hemoperitoneum, requesting bilateral salpingectomy, because of failed previous tubal sterilization Post-op diagnosis: same (200 cc of hemoperitoneum with ruptured left ectopic tubal ) Procedure: Laparoscopic bliateral salpingectomy Surgeon: Arun Herman MD Anesthesia: GETA Was an Insurance Producer used for this Procedure?: No Estimated blood loss (mL): 0 Pathology: other (Right & left fallopian tubes) Condition: stable Disposition: PACU
--- NOTE | 2021-09-12 15:28 | W.PM.OPN ---
Operative Note Operative Note Date of Service: 09/12/21 Narrative: PREOPERATIVE DIAGNOSIS:? Ruptured left ectopic tubal with hemoperitoneum, failed previous tubal sterilization requesting bilateral salpingectomy POSTOPERATIVE DIAGNOSIS:? The same with 200 cc of hemoperitoneum QBL: Minimal Anesthesia: SERA SURGEON:? Arun Herman MD?? Diesel Dinkey Engineer: Complications: None Pathology: Right and left Fallopian tubes?with ectopic in the left tube DESCRIPTION OF PROCEDURE:?The patient was taken to the OR where general anesthesia was easily obtained. The patient was then prepped and draped in a sterile fashion and placed in dorsal lithotomy position. A speculum was introduced into the patient?s vagina for cervical visualization. Once the cervix was visualized, a single-toothed tenaculum was applied to the upper lip of the cervix, and a Humi manipulator was introduced into the patient?s cervix. The single tooth tenaculum was then removed and hemostasis was assured?using pressure. a Ware catheter?was inserted and clear urine started draining. Gloves were changed to clean ones. Attention was then drawn to the abdomen where a 10 mm longitudinal incision was done intra umbilical and carried down all the way to the fascia, which was tented?up using 2 Kenneth clamps and was nicked in the midline and then extended on both end of the incision?, them using 2 pick?ups the peritoneum?was entered with Metzenbaum scissors and under direct visualization, a 10 mm Waldrop trocar was introduced into the patient?s abdomen. Once intraperitoneal placement was confirmed with direct visualization, pneumoperitoneum was started & was easily obtained.Then, two fingerbreadths above the pubic symphysis and towards the?right lower quadrant, under direct visualization, a 5 mm trocar was then introduced into the patient?s abdomen. and a 3rd and 4th ones on the left?lower quadrant and suprapubic were placed?in a similar manner. The patient was placed in Trendelenburg position, Inspection revealed 100 cc of hemoperitoneum, and ruptured left tubal . Attention was then drawn to the left fallopian tube. The IP ligament was identified and fallopian tube was then grasped by the fimbria and incised from the mesosalpinx using ligasure device, using cautery for hemostasis and cutting afterwards a bite at a time all the way to the cornual end of the left tube. The same was done?on the?right fallopian tube. Good hemostasis was noted from both fallopian tube sites and the operative site. Specimen were then removed from the patient?s abdomen. Copious irrigation was done. Once good hemostasis was noted from the patient?s abdomen, pneumoperitoneum was deflated and all trocars were removed. Infraumbilical fascia was closed with 0 Vicryl and interrupted suture. The skin was closed with 4-0 Vicryl. The Right and left?lower quadrant ports were closed with 0 Vicryl. Bupivicaine 0.25 10 cc were injected subcuticularly in the 3 incisions. Then speculum was put back in the vagina inspection revealed?hemostasis at the site of the tenaculum, the?humi manipulator was removed? and Ware was draining clear urine was taken out too. Sponge, lap and needle counts were correct x2. The patient was taken to the recovery room in stable condition.
[2021-09-12] MEDS: Acetaminophen 325 MG TABLET 650 MG PO (16:01)
[2021-09-12] MEDS: oxyCODONE HCl Immed Release 5 MG TABLET PO (16:02)
[2021-09-12] MEDS: fentaNYL citrate/PF 100 MCG/2 ML VIAL 25 MCG IVPUSH (16:03)
== END 2021-09-12 18:00 | disposition home or self-care (01) ==
LOC: HO.ED 12:03 → HO.SSS 13:19
PROVIDERS: Obstetrics & Gynecology; Emergency Provider Emergency Medicine; Visit Provider Emergency Medicine
PROC: 10T24ZZ Resection of Products of Conception, Ectopic, Percutaneous Endoscopic Approach (ICD-10-PCS; CPT 59150; principal; 2021-09-12 12:50)
DX: O00.102 Left tubal pregnancy without intrauterine pregnancy (principal); O08.1 Delayed or excessive hemorrhage following ectopic and molar pregnancy; O99.810 Abnormal glucose complicating pregnancy; O36.0990 Maternal care for other rhesus isoimmunization, unspecified trimester, not applicable or unspecified; R00.0 Tachycardia, unspecified; Z98.51 Tubal ligation status; Z98.891 History of uterine scar from previous surgery; Z20.822 Contact with and (suspected) exposure to COVID-19
CPT/HCPCS: 59151; 36415; 76801; 76817; 80048; 80076; 81001; 81025; 83690; 83735; 84702; 85025; 86850; 86900; 86901; 87086; 87635; 88302; 88305; 96361; 96374; 96375; 99285; 99291; J0330; J1100; J1885; J2250; J2405; J3010

== ENCOUNTER 2021-09-19 13:23 | Outpatient (REF) | payer OTHER, SELFPAY ==
[2021-09-19 15:15] LABS: HCG Quantitative 168 mIU/mL
== END 2021-09-19 13:24 | disposition home or self-care (01) ==
LOC: HO.LAB 13:23
PROVIDERS: Visit Provider Obstetrics & Gynecology
DX: O00.90 Unspecified ectopic pregnancy without intrauterine pregnancy (principal); T81.49XD Infection following a procedure, other surgical site, subsequent encounter
CPT/HCPCS: 36415; 84702; 99212

== ENCOUNTER → 2021-09-22 14:34 | Outpatient (BNVA) | payer OTHER, SELFPAY | PROVIDERS: Visit Provider Obstetrics & Gynecology ==

== ENCOUNTER 2021-09-23 13:12 | Emergency (ER) | payer OTHER, SELFPAY ==
[2021-09-23 14:30] VITALS: BP 107/70; PULSE 77; RESP 18; TEMP 37.1; O2SAT 99; BMI 23.3
[2021-09-23 16:29] LABS: COVID-19 Test Negative (Negative); IDNOW Serial# 9DD0AD1C
--- NOTE | 2021-09-23 17:02 | ED.URI ---
HPI - URI/Sore Throat General Chief Complaint: General Medical Stated Complaint: HEADACHE Time Seen by Provider: 09/23/21 16:22 Source: patient and family Mode of arrival: ambulatory Limitations: language barrier ( Polish-speaking) History of Present Illness HPI Narrative: 25-year-old female presenting to the ED with complaints of 2 days of intermittent headaches and body aches with a positive COVID exposure. She reports that she is not noted to COVID. She reports that her and 2 sons have tested positive for COVID and her daughter today. She denies any fevers, chills, dizziness, neck pain/ stiffness, trouble swallowing or breathing, ear pain, sore throat, chest pain or shortness of breath, cough, nausea /vomiting / diarrhea constipation, dysuria, abdominal pain, rashes, recent travel or any other symptoms complaints or concerns at this time. MD elicited complaint: other ( Positive COVID exposure with headache/body aches) Onset (ago): day(s) (2) Consistency: constant and progressively worsening Severity: mild Able to tolerate fluids by mouth: Yes Exacerbating factors: nothing Relieving factors: nothing Context: sick contacts ( see above) Associated symptoms: myalgias and headache Treatments prior to arrival: none Related Data Home Medications Medication Instructions Recorded Confirmed pyridoxine (vitamin B6) 25 mg mg PO 07/28/20 07/26/21 tablet Previous Rx's Medication Instructions Recorded ferrous sulfate 325 mg (65 mg 325 mg PO BID #30 tab 10/04/20 iron) tablet FreeStyle Lite Strips (blood sugar 4 strip MISCELLANEOUS QID 30 Days 10/12/20 diagnostic) #100 strip NS alcohol swabs (Alcohol Wipes) 4 pad TOPICAL .4x day 90 Days #100 10/12/20 ea blood-glucose meter (FreeStyle #1 ea 10/12/20 [place] Lite) lancets 28 gauge (FreeStyle #100 ea 10/12/20 Lancets) cyclobenzaprine 5 mg tablet 5 mg PO TID PRN 30 Days #30 tab 07/12/21 ibuprofen 600 mg tablet 600 mg PO Q8H PRN 30 Days #90 tab 07/12/21 oxycodone 5 mg capsule 5 mg PO Q4H PRN #20 cap 09/12/21 amoxicillin 875 mg-potassium 1 tab PO BID 7 Days #14 tab 09/19/21 clavulanate 125 mg tablet (Augmentin) acetaminophen 500 mg tablet 1,000 mg PO QID PRN #14 tab 09/23/21 (Tylenol Extra Strength) ibuprofen 800 mg tablet 800 mg PO Q8H PRN #14 tab 09/23/21 Allergies Allergy/AdvReac Type Severity Reaction Status Date / Time No Known Allergies Allergy Verified 09/22/21 14:35 [No Known Allergies*] Review of Systems Review of Systems: Constitutional : positive fatigue/malaise, No Weight loss, No Fever, No Chills, No Night Sweats ENT/Mouth : No Hearing loss, No Ear Pain, No Nasal Congestion, No Sinus Pain, No Hoarseness, No sore throat, No Rhinorrhea, No Swallowing Difficulty Eyes: No Eye Pain, No Swelling, No Redness, No Foreign Body, No Discharge, No Vision Changes Cardiovascular : No Chest Pain, No SOB, No Dyspnea on Exertion, No Orthopnea, No Edema, No Palpitations Respiratory : No Cough, No Sputum, No Wheezing, No Smoke Exposure, No Dyspnea Gastrointestinal : No Nausea, No Vomiting, No Diarrhea, No Constipation, No abdominal Pain, No Hematochezia, No Melena Genitourinary : no irregular bleeding, No Dysuria, No Urinary Frequency, No Hematuria, No Urinary Incontinence, No Urgency, No Flank Pain, No Urinary Flow Changes, No Hesitancy Musculoskeletal : positive myalgias, No joint pain, No Joint Swelling Skin : No Skin Lesions, No rash Neuro : No Weakness, No Numbness, No Paresthesias, No Loss of Consciousness, No Dizziness, No Headache Psych : No Anxiety/Panic, No Depression, No SI/HI/AH/VH, No Social Issues, Heme/Lymph: No Bruising, No Bleeding,No Lymphadenopathy Endocrine : No Polyuria, No Polydipsia, No Temperature Intolerance Yes all other systems are reviewed and are negative [facility] Past Medical History Attestation statement: The following information was validated with the patient. Medical History Sterilization Supervision of other normal , antepartum Surgical History History of hysteroscopy Hx of section Hx of myomectomy Family History Family History Family/Other History of breast cancer in female Father Hypertension History of prostate cancer Mother Hypertension Hx of diabetes mellitus Hx of cancer of lung Asthma Sister Hypertension Hx of thyroid disease Maternal Grandfather Hypertension Hx of cancer of lung Maternal Grandmother Hypertension Hx of cardiovascular disorder Paternal Grandfather Hypertension Paternal Grandmother Hypertension Social History Social History Housing: House Alcohol intake: never Patient Tobacco Use Status: Never used Tobacco e-Cigarette/Vaping Use: Never Used Second Hand Smoke Exposure: No Advance Directives: No Advance Directives Information Provided: No service: No Current occupational status: unemployed Sexual orientation: Straight/Heterosexual Gender identity: Female Physical Exam Vital Signs: Vital Signs: Last Vital Signs Temp 98.8 F 09/23/21 14:30 Pulse 77 09/23/21 14:30 Resp 18 09/23/21 14:30 BP 107/70 09/23/21 14:30 Pulse Ox 99 09/23/21 14:30 BMI result Body Mass Index 23.3 vital signs have been reviewed as normal and appeared to be correct. Blood pressure normal. Heart rate normal. Respiration rate normal. Temperature normal. Oxygen saturation normal. Appearance: Alert. Oriented X3. No acute distress. Head: Normal external exam. Normocephalic. Atraumatic. Eyes: PERRLA. EOMI. Conjunctiva and sclera normal. Eyelids normal. ENT: EAC normal. TM's Normal. Pharynx normal. Uvula midline. Moist mucous membranes. No trismus noted. No drooling noted. No muffled voice noted. Neck: Normal inspection. Neck supple. FROM. No adenopathy. Thyroid Normal. No meningeal signs. No neck mass noted. CVS: Normal heart rate and rhythm. Heart sound normal. Pulses normal throughout. No murmurs/rales/gallops. Respiratory: No respiratory distress. Painless inspiration. Breath sounds normal. No wheezes/rales/rhonchi noted. Chest nontender. No accessory muscle usage noted or decreased air movement noted. Abdomen: Soft and nontender. Bowel sounds normal in all 4 quadrants. No distention noted. No organomegaly noted. No visible injury noted. Back: Full range of motion noted. No rashes/lesion/induration/fluctuance or signs of infection noted. Skin: Skin warm and dry. Normal skin color. Normal skin turgor. No rashes/lesions/lacerations noted. Extremities: Extremities exhibit normal range of motion. Extremities nontender. Neuro: Oriented X 3. No motor deficit. No sensory deficit. Reflexes normal. Normal steady gait. No focal neuro deficits noted. Vascular: + radial pulses Normal cap refill. No cyanosis noted to upper extremity nails Course Course Course Narrative: 25-year-old female presenting to the ED with complaints of 2 days of intermittent headaches and body aches with a positive COVID exposure. She reports that she is not noted to COVID. She reports that her and 2 sons have tested positive for COVID and her daughter today. She denies any fevers, chills, dizziness, neck pain/ stiffness, trouble swallowing or breathing, ear pain, sore throat, chest pain or shortness of breath, cough, nausea /vomiting / diarrhea constipation, dysuria, abdominal pain, rashes, recent travel or any other symptoms complaints or concerns at this time. patient is negative for COVID although everyone in her family has tested positive therefore she will have to self isolate as well as her family will DC home with Motrin Tylenol instructions return if any new or worsening symptoms to follow up with primary care provider. Patient understands with this plan. MDM - URI/Sore Throat Medical Records Attestation: I reviewed the patient's medical records. Lab Data Attestation: I reviewed the patient's lab results. Labs: Lab Results 09/23/21 Range/Units 15:40 COVID-19 ([facility]) Negative (Negative) COVID-19 Clin Com See Note Discharge Plan Discharge Clinical Impression: Acute viral syndrome Patient Disposition: Home, Self-Care Instructions: Viral Syndrome (ED) Prescriptions: New ibuprofen 800 mg tablet 800 mg PO Q8H PRN (Reason: pain) Qty: 14 RF: 0 acetaminophen [Tylenol Extra Strength] 500 mg tablet 1,000 mg PO QID PRN (Reason: fever or pain) Qty: 14 RF: 0 No Action FreeStyle Lite Strips Strip 4 strip miscellaneous QID 30 Days Qty: 100 RF: 1 (DME) lancets [FreeStyle Lancets] 28 gauge misc See Rx Instructions .ROUTE .MEDSUPPLY Qty: 100 RF: 0 (DME) blood-glucose meter [FreeStyle [place] Lite] Kit See Rx Instructions .ROUTE .MEDSUPPLY Qty: 1 RF: 0 alcohol swabs [Alcohol Wipes] Pads, Medicated 4 pad topical .4x day 90 Days Qty: 100 RF: 0 oxycodone 5 mg capsule 5 mg PO Q4H PRN (Reason: Pain (Scale Score 4-6)) Qty: 20 RF: 0 ibuprofen 600 mg tablet 600 mg PO Q8H PRN (Reason: pain) 30 Days Qty: 90 RF: 1 cyclobenzaprine 5 mg tablet 5 mg PO TID PRN (Reason: muscle spasm) 30 Days Qty: 30 RF: 1 pyridoxine (vitamin B6) 25 mg tablet PO RF: 0 ferrous sulfate 325 mg (65 mg iron) tablet 325 mg PO BID Qty: 30 RF: 4 amoxicillin-pot clavulanate [Augmentin] 875-125 mg tablet 1 tab PO BID 7 Days Qty: 14 RF: 0 Referrals: Madyson Conde NP [Primary Care Provider] - 2 days Stand Alone Forms: Work/School Release Print Language: Polish
== END 2021-09-23 17:15 | disposition home or self-care (01) ==
PROVIDERS: Emergency Provider Emergency Medicine; PCP Hospitalist
DX: B34.9 Viral infection, unspecified (principal); Z20.822 Contact with and (suspected) exposure to COVID-19
CPT/HCPCS: 36415; 87635; 99283

== ENCOUNTER 2021-09-24 12:44 | Emergency (ER) | payer OTHER, SELFPAY ==
[2021-09-24 14:15] VITALS: BP 124/77; PULSE 92; RESP 18; TEMP 36.8; O2SAT 100; BMI 29.4
[2021-09-24 15:36] LABS: MANUAL DIFF FLAG NO
[2021-09-24 15:38] LABS: Basophils Percent Auto 0.4 % (0-2); Eosinophils Absolute Auto 0.1 X10*3/uL (0.0-0.4); Eosinophils Percent Auto 0.9 % (0-4); Hematocrit 34.1 % (37.0-47.0); Hemoglobin 10.2 g/dl (12.0-16.0); Imm Gran Abs Auto 0.03 X10*3/uL (0.00-0.03); Imm Gran Pct Auto 0.3 % (0.0-0.4); Lymphocytes Percent Auto 20.8 % (20-40); Mean Corpuscular HGB Conc 29.9 g/dl (31.0-35.0); Mean Corpuscular Hemoglobin 21.3 pg (27.0-33.0); Mean Platelet Volume 9.8 fL (9.4-12.3); Monocytes Absolute Auto 0.3 X10*3/uL (0.1-1.2); Monocytes Percent Auto 2.6 % (2-11); Neutrophils Absolute Auto 7.2 x10*3/uL (2.0-8.3); Platelet Count 475 X10*3/uL (160-400); Red Cell Distribution Width 14.9 % (11.0-16.0); White Blood Count 9.5 X10*3/uL (4.8-10.8)
[2021-09-24 15:55] LABS: Alanine Aminotransferase 16 U/L (0-31); Albumin Level 4.5 g/dL (3.5-5.0); Alkaline Phosphatase 93 U/L (39-117); Anion Gap 13 (12-20); Aspartate Amino Transferase 17 U/L (5-31); Bilirubin Total 0.5 mg/dL (0.0-1.0); Blood Urea Nitrogen 18 mg/dL (9-16); Calcium 9.5 mg/dL (8.4-10.2); Carbon Dioxide 26 mmol/L (22-29); Chloride 102 mmol/L (96-108); Creatinine Clr Calc Pharmacy 107.7; Estimated Glomerular Filt Rate > 60; Glucose Random 77 mg/dL (60-115); Potassium 4.1 mmol/L (3.3-5.1); Sodium 137 mmol/L (135-145); Total Protein 7.6 g/dL (6.5-8.0)
--- NOTE | 2021-09-24 19:04 | ED_ITS ---
HPI - General Adult General Chief complaint: General Medical Stated complaint: Low Abd Infection S/P Surgery Time Seen by Provider: 09/24/21 14:39 Source: patient Mode of arrival: ambulatory Limitations: no limitations History of Present Illness HPI narrative: This is a 25-year-old female who recently had surgery ( laparoscopic bilateral salpingectomies for ruptured tubal ectopic ) to the emergency department with concerns of an infected wound to her umbilicus X12 days. Patient tells me that she had a procedure done on September 12, 2021, in a few days later she started noticing purulence discharge from site of incision around her umbilicus, she tells me that it was green/yellow in color, she was s tarted on p.o. antibiotics by Dr. Herman, she tells me he said it should improve in a few days, and of it does not she should return to the emergency department. Today she is telling me that there still a good amount of yellow/green discharge coming from the surgical wound, and she also reports pain around the site despite antibiotic use. She tells me she still has antibiotics left. Patient denies fevers, chills, nausea, vomiting, chest pain, shortness of breath, weakness. Onset (ago): day(s) (12) Radiation: non-radiation Severity: moderate Quality: burning Pain Consistency: constant Relieving factors: none Exacerbating factors: none Associated symptoms: denies other symptoms Treatments prior to arrival: other (Augmentin p.o. b.i.d. x7 days) Related Data Home Medications Medication Instructions Recorded Confirmed pyridoxine (vitamin B6) 25 mg mg PO 07/28/20 07/26/21 tablet Previous Rx's Medication Instructions Recorded ferrous sulfate 325 mg (65 mg 325 mg PO BID #30 tab 10/04/20 iron) tablet FreeStyle Lite Strips (blood sugar 4 strip MISCELLANEOUS QID 30 Days 10/12/20 diagnostic) #100 strip NS alcohol swabs (Alcohol Wipes) 4 pad TOPICAL .4x day 90 Days #100 10/12/20 ea blood-glucose meter (FreeStyle #1 ea 10/12/20 Parlin Lite) lancets 28 gauge (FreeStyle #100 ea 10/12/20 Lancets) cyclobenzaprine 5 mg tablet 5 mg PO TID PRN 30 Days #30 tab 07/12/21 ibuprofen 600 mg tablet 600 mg PO Q8H PRN 30 Days #90 tab 07/12/21 oxycodone 5 mg capsule 5 mg PO Q4H PRN #20 cap 09/12/21 amoxicillin 875 mg-potassium 1 tab PO BID 7 Days #14 tab 09/19/21 clavulanate 125 mg tablet (Augmentin) acetaminophen 500 mg tablet 1,000 mg PO QID PRN #14 tab 09/23/21 (Tylenol Extra Strength) ibuprofen 800 mg tablet 800 mg PO Q8H PRN #14 tab 09/23/21 amoxicillin 875 mg-potassium 1 tab PO BID 7 Days #14 tab 09/24/21 clavulanate 125 mg tablet (Augmentin) doxycycline hyclate 100 mg capsule 100 mg PO BID 10 Days #20 cap 09/24/21 Allergies Allergy/AdvReac Type Severity Reaction Status Date / Time No Known Allergies Allergy Verified 09/24/21 14:15 [No Known Allergies*] Review of Systems Review of Systems: Constitutional : No Weight loss, No Fever, No Chills, No Fatigue, No Malaise ENT/Mouth : No sore throat, No Rhinorrhea Eyes: No Eye Pain, No Swelling, No Redness Cardiovascular : No Chest Pain, No SOB, No Dyspnea on Exertion, No Orthopnea, No Edema, No Palpitations Respiratory : No Cough, No Sputum, No Wheezing Gastrointestinal : No Nausea, No Vomiting, No Diarrhea, No Constipation, No abdominal Pain, No Hematochezia, No Melena Genitourinary : No Dysuria, No Urinary Frequency, No Hematuria, Musculoskeletal : No joint pain, No Myalgias, No Joint Swelling Skin : No Skin Lesions, No rash, + discharge from surgical incision site. Neuro : No Weakness, No Numbness, No Dizziness, No Headache All other systems reviewed and are negative PMFSH Past Medical History Attestation statement: The following information was validated with the patient. Source: old records reviewed and nursing notes reviewed Medical History Sterilization Supervision of other normal , antepartum Surgical History History of hysteroscopy Hx of section Hx of myomectomy Family History Family History Family/Other History of breast cancer in female Father Hypertension History of prostate cancer Mother Hypertension Hx of diabetes mellitus Hx of cancer of lung Asthma Sister Hypertension Hx of thyroid disease Maternal Grandfather Hypertension Hx of cancer of lung Maternal Grandmother Hypertension Hx of cardiovascular disorder Paternal Grandfather Hypertension Paternal Grandmother Hypertension Social History Social History Housing: House Alcohol intake: never Patient Tobacco Use Status: Never used Tobacco e-Cigarette/Vaping Use: Never Used Second Hand Smoke Exposure: No Advance Directives: No Advance Directives Information Provided: Yes Patient : No service: No Current occupational status: unemployed Sexual orientation: Straight/Heterosexual Gender identity: Female Physical Exam Vital Signs: Vital Signs: Last Vital Signs Temp 99 F 09/24/21 19:31 Pulse 86 09/24/21 19:31 Resp 16 09/24/21 19:31 BP 116/68 09/24/21 19:31 Pulse Ox 100 09/24/21 14:15 BMI result Body Mass Index 29.4 VSS Appearance: Alert.? Oriented X3.? No acute distress.? Head: Normocephalic, atraumatic, no step-offs or deformities Eyes: Pupils equal, round and reactive to light.? ENT: Pharynx normal.? Neck: Normal inspection.? Neck supple.? CVS: Normal heart rate and rhythm.? Pulses normal.? Respiratory: No respiratory distress.? Breath sounds normal.? Abdomen: Soft and nontender.? Skin: Skin warm and dry.? Normal skin color.? Normal skin turgor.?+ umbilical incisional swelling, erythema, yellow/green purulent discharge and tenderness. (image attached) + induration inferior to umbilicus no fluctuance Extremities: No lower extremity edema.? No calf ttp. 5/5 strength to bilateral upper and lower extremities Back: No midline tenderness, no C-spine tenderness, full range of motion, no CVA tenderness bilaterally Neuro: Oriented X 3.? No motor deficit.? No sensory deficit. Course Reevaluation(s) Reevaluation #1: Discuss this case with who agrees that this is likely purulence discharge likely organisms strep or staph. I probed the area with a Q-tip, and was able to insert a Q-tip in about 1 cm. Area was thoroughly irrigated using saline, and a wet to dry dressing was applied. Laboratory study show no elevated white count, negative lactic acid, no electrolyte abnormalities. I also discussed this case with Dr. Virgil childers, who recommended using Cici clamps to further explore the area. This was done, and no further discharge was expressed from no incision site. He agrees with my plan to discharge patient home on Augmentin for 7 more days, and add doxycycline for MRSA coverage. I have provided the patient with wound centers phone number, and advised her to call to make an appointment as she will likely benefit from wound care. I have also advised her to follow-up with in the office, call and schedule an appointment tomorrow. Have advised her to return to the emergency department with new or worsening symptoms such as fevers, chills, nausea, vomiting, worse discharge, redness, abdominal pain, swelling and warmth to the area. Patient is safe for discharge home. Medical Decision Making MDM Narrative Medical decision making narrative: 1916 25-year-old female status post laparoscopic bilateral salpingectomies for ruptur ed tubal ectopic presents to the emergency department with complaints redness, tenderness, discharge from surgical incision site around umbilicus. Patient is currently on Augmentin p.o. b.i.d. for 7 days. Followed by Upon physical examination there is slight erythema, calor, tenderness and clear yellow/green discharge coming from the umbilical incision site. Patient reports pain with palpation. Vital signs are stable. S1-S2 appreciated free of murmurs. Lungs are clear. Abdomen soft nontender nondistended. No focal neuro deficits. Plan at this time is to obtain basic labs, lactic, blood cultures, wound culture. I will also reach out to Dr. Herman for guidance. Medical Records Medical records reviewed: Yes I reviewed the patient's medical records. Lab Data Lab results reviewed: Yes I reviewed the patient's lab results. Result diagrams: 09/24/21 15:31 09/24/21 15:31 Labs: Lab Results 09/24/21 09/24/21 09/24/21 Range/Units 15:31 15:31 19:19 WBC 9.5 (4.8-10.8) X10*3/uL RBC 4.80 (4.20-5.50) X10*6/uL Hgb 10.2 L (12.0-16.0) g/dl Hct 34.1 L (37.0-47.0) % MCV 71.0 L (80.0-98.0) fL MCH 21.3 L (27.0-33.0) pg MCHC 29.9 L (31.0-35.0) g/dl RDW 14.9 (11.0-16.0) % Plt Count 475 H D (160-400) X10*3/uL MPV 9.8 (9.4-12.3) fL Immature Gran % (Auto) 0.3 (0.0-0.4) % Neut % (Auto) 75.0 H (45-73) % Lymph % (Auto) 20.8 (20-40) % Thomas % (Auto) 2.6 (2-11) % Eos % (Auto) 0.9 (0-4) % Baso % (Auto) 0.4 (0-2) % Lymph # (Auto) 2.0 (1.2-4.9) X10*3/uL Thomas # (Auto) 0.3 (0.1-1.2) X10*3/uL Eos # (Auto) 0.1 (0.0-0.4) X10*3/uL Baso # (Auto) 0.0 (0.0-0.2) X10*3/uL Abs Immat Gran (auto) 0.03 (0.00-0.03) X10*3/uL Absolute Neuts (auto) 7.2 (2.0-8.3) x10*3/uL Absolute Nucleated RBC 0.000 (0.0-0.012) X10*3/uL Nucleated RBC % (auto) 0.0 (0.0-0.2) /100WBC Sodium 137 (135-145) mmol/L Potassium 4.1 (3.3-5.1) mmol/L Chloride 102 (96-108) mmol/L Carbon Dioxide 26 (22-29) mmol/L Anion Gap 13 (12-20) BUN 18 H (9-16) mg/dL Creatinine 0.74 (0.5-1.4) mg/dL Estim Creat Clear Calc 107.7 Estimated GFR > 60 Random Glucose 77 (60-115) mg/dL Lactic Acid 1.1 (0.5-2.0) mmol/L Calcium 9.5 D (8.4-10.2) mg/dL Total Bilirubin 0.5 (0.0-1.0) mg/dL AST 17 (5-31) U/L ALT 16 (0-31) U/L Alkaline Phosphatase 93 D (39-117) U/L Total Protein 7.6 (6.5-8.0) g/dL Albumin 4.5 (3.5-5.0) g/dL Critical Care Time Critical Care Time Critical Care Time: Yes Total Critical Care Time: 36 Attestation: I attest to this time spent taking care of the patient, doing wound care, speaking to specialist, chart review, reviewing labs. Discharge Plan Discharge Clinical Impression: Incisional infection Patient Disposition: Home, Self-Care Instructions: Wound Infection (ED), Surgical Site Infections (ED) Additional Instructions: Take your medications as prescribed. If you were prescribed antibiotics today, it is important that you take your medication to their entirety, do not skip any doses, do not finish them early. Doxycycline isn't antibiotic that was prescribed to you, this can make a skin sensitive in direct sunlight, avoid direct sunlight Follow-up with your primary care provider this week. Follow up with OBGYN call and make an appointment tomorrow. Call and make an appointment with the wound center here at [facility] phone number [phone] Apply wet to dry dressings to the area as instructed. Clean the area well. Apply a warm compress to the area. Return to the emergency department with new or worsening symptoms. Such as fevers, chills, nausea, vomiting, worse discharge, redness, abdominal pain, swelling and warmth to the area. In case of emergency call 911 [facility] kimber medicamentos seg?n lo prescrito. Si le recetaron antibi?ticos hoy, es importante que tome kimber medicamentos en nevarez totalidad, no se salte ninguna dosis, no los termine temprano. La doxiciclina no es un antibi?sunil que le recetaron, esto puede hacer que la piel se vuelva sensible a la niraj solar directa, evite la niraj solar directa. Frederick un seguimiento con nevarez proveedor de atenci?n primaria esta semana. Frederick un seguimiento con la llamada de OBGYN y programe toni akosua ma?maldonado. Llame y programe toni akosua con el centro de heridas aqu? en el n?jeana de tel?fono de [facility] [phone] Aplique vendajes h?medos a secos en el ?rusty seg?n las instrucciones. Limpiar rosana la keyana. Regrese al departamento de emergencias con s?ntomas nuevos o que empeoran. Dajuan fiebre, escalofr?os, n?useas, v?mitos, peor secreci?n, enrojecimiento, dolor abdominal, hinchaz?n y calor en la keyana. En leonela de emergencia llame al 911 Prescriptions: New doxycycline hyclate 100 mg capsule 100 mg PO BID 10 Days Qty: 20 RF: 0 amoxicillin-pot clavulanate [Augmentin] 875-125 mg tablet 1 tab PO BID 7 Days Qty: 14 RF: 0 No Action FreeStyle Lite Strips Strip 4 strip miscellaneous QID 30 Days Qty: 100 RF: 1 (DME) lancets [FreeStyle Lancets] 28 gauge misc See Rx Instructions .ROUTE .MEDSUPPLY Qty: 100 RF: 0 (DME) blood-glucose meter [FreeStyle Parlin Lite] Kit See Rx Instructions .ROUTE .MEDSUPPLY Qty: 1 RF: 0 alcohol swabs [Alcohol Wipes] Pads, Medicated 4 pad topical .4x day 90 Days Qty: 100 RF: 0 oxycodone 5 mg capsule 5 mg PO Q4H PRN (Reason: Pain (Scale Score 4-6)) Qty: 20 RF: 0 ibuprofen 800 mg tablet 800 mg PO Q8H PRN (Reason: pain) Qty: 14 RF: 0 acetaminophen [Tylenol Extra Strength] 500 mg tablet 1,000 mg PO QID PRN (Reason: fever or pain) Qty: 14 RF: 0 ibuprofen 600 mg tablet 600 mg PO Q8H PRN (Reason: pain) 30 Days Qty: 90 RF: 1 cyclobenzaprine 5 mg tablet 5 mg PO TID PRN (Reason: muscle spasm) 30 Days Qty: 30 RF: 1 pyridoxine (vitamin B6) 25 mg tablet PO RF: 0 ferrous sulfate 325 mg (65 mg iron) tablet 325 mg PO BID Qty: 30 RF: 4 amoxicillin-pot clavulanate [Augmentin] 875-125 mg tablet 1 tab PO BID 7 Days Qty: 14 RF: 0 Referrals: Madyson Conde NP [Primary Care Provider] - 2 days Arun Herman MD [Physician] - 2 days Stand Alone Forms: Work/School Release Print Language: French
[2021-09-24 19:31] VITALS: BP 116/68; PULSE 86; RESP 16; TEMP 37.2
[2021-09-24 19:45] LABS: Lactic Acid 1.1 mmol/L (0.5-2.0)
--- NOTE | 2021-09-24 19:56 | P.CONOB_ITS ---
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 The patient is postop day 12 status post laparoscopic bilateral salpingectomy for a ruptured ectopic after a failed sterilization done 8 months ago at [facility] The patient 6 days ago presented to the office with umbilical incision infection , so she was started on Augmentin 875 mg p.o. b.i.d.. The patient stated that her infection started to improve for the 1st few days till yesterday when she called complaining of worsening of the umbilical incision discharge, she had no fever or chills andno abdominal pain, the patient was instructed to come to the emergency room to be evaluated. The patient presented to the emergency room this evening with worsening of her discharge from the skin incision at the umbilicus. Patient does not report any feverishness or chills, no nausea or vomiting and noworsenin g of the umbilical pain . The Patient is still taking Augmentin 875 mg p.o. b.i.d. 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 Systems Review of Systems ROS Unobtainable: All systems reviewed & are unremarkable except as noted in HPI and below Cardiovascular: Denies Palpatations, Loss of consciousness or Chest pain Respiratory: Denies Cough, Wheezing or Shortness of breath Musculoskeletal: Denies Low back pain Gastrointestinal: Denies Heartburn, Constipation, Diarrhea, Nausea or Vomiting Genitourinary: Denies Pain with urination, Burning with urination or Urinary frequency Neurological: Denies Migranes Psychological: Denies Depression OB [facility] Past Medical History Medical History Sterilization Supervision of other normal , antepartum Family History Family History Family/Other History of breast cancer in female Father Hypertension History of prostate cancer Mother Hypertension Hx of diabetes mellitus Hx of cancer of lung Asthma Sister Hypertension Hx of thyroid disease Maternal Grandfather Hypertension Hx of cancer of lung Maternal Grandmother Hypertension Hx of cardiovascular disorder Paternal Grandfather Hypertension Paternal Grandmother Hypertension Surgical History Surgical History History of hysteroscopy Hx of section Hx of myomectomy Social History Social History Housing: House Alcohol intake: never Patient Tobacco Use Status: Never used Tobacco e-Cigarette/Vaping Use: Never Used Second Hand Smoke Exposure: No Advance Directives: No Advance Directives Information Provided: Yes Patient : No service: No Current occupational status: unemployed Sexual orientation: Straight/Heterosexual Gender identity: Female Meds Allergies Allergy/AdvReac Type Severity Reaction Status Date / Time No Known Allergies Allergy Verified 09/24/21 14:15 [No Known Allergies*] Home Medications Medication Instructions Recorded Confirmed Last Taken Type pyridoxine (vitamin B6) 25 mg mg PO 07/28/20 07/26/21 Unknown History tablet 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 Normal skin color.? Normal skin turgor.?+ umbilical incisional swelling, erythema,? yellow/green purulent discharge and tenderness. induration inferior to umbilicus STRATEGIC CLIENT EXECUTIVE - Results Labs CBC & Chem 7: 09/24/21 15:31 09/24/21 15:31 Labs: Short CBC 09/24/21 Range/Units 15:31 WBC 9.5 (4.8-10.8) X10*3/uL Hgb 10.2 L (12.0-16.0) g/dl Hct 34.1 L (37.0-47.0) % Plt Count 475 H D (160-400) X10*3/uL BMP 09/24/21 15:31 Sodium 137 Potassium 4.1 Chloride 102 Carbon Dioxide 26 BUN 18 H Creatinine 0.74 Calcium 9.5 D Liver Function 09/24/21 Range/Units 15:31 Total Bilirubin 0.5 (0.0-1.0) mg/dL AST 17 (5-31) U/L ALT 16 (0-31) U/L Alkaline Phosphatase 93 D (39-117) U/L Albumin 4.5 (3.5-5.0) g/dL Assessment and Plan (1) Incisional infection: Status: Acute Recommended to LUDWIG Thomas the following: With the assistance of the emergency room physician Dr. Hameed inspect for signs and symptoms of necrosis of the skin, sub Q and/or fascia, use a Q-tip to probe the fascia to make sure it is intact , enlarge the skin incision that is already open to improve the drainage of the subcu discharge, and use a Cici clamp to explore the inferior aspect of the umbilicus, break up any potential loculations from a seroma and/or abscess and improve the drainage. Collect culture from the incision, use saline for irrigation and pack the incision with wet and dry gauze. I received the following report back: incision looks like staph/strap infection with possible MRSA, the fascia is intact, there is no evidence of necrosis in the skin, subcu or fascia, irrigation done with saline and the incision was packed with wet and dry gauze. Recommended the following Plan: Discharge the patient on Augmentin 7 more days of 875 mg p.o. b.i.d., add doxycycline 100 mg p.o. b.i.d. for 10 days for the possibility of MRSA , we will check the wound culture check the results and treat accordingly. Refer the patient to the Wound Care Clinic in 36 hours for further treatment/management. Instructions to be given to the patient to call in case of fever above 100.4, incisional pain worsening of the discharge discoloration of the skin, and vomiting. Will set up a Follow-up with the Wound Care Clinic on Sunday in 36 hours and follow-up up with our office within 2 days
[2021-09-24] MEDS: Acetaminophen 325 MG TABLET 650 MG PO (20:14)
== END 2021-09-24 20:18 | disposition home or self-care (01) ==
PROVIDERS: Emergency Provider Emergency Medicine Emergency Medical Services; PCP Hospitalist
DX: T81.40XA Infection following a procedure, unspecified, initial encounter (principal); R10.30 Lower abdominal pain, unspecified; Y92.9 Unspecified place or not applicable; Z90.710 Acquired absence of both cervix and uterus
CPT/HCPCS: 36415; 80053; 83605; 85025; 87040; 87071; 87077; 87186; 87205; 96372; 99284; 99291

== ENCOUNTER 2021-09-26 09:35 | Outpatient (RCR) | payer OTHER, SELFPAY | END 2021-10-26 15:35 | disposition home or self-care (01) | LOC: HO.WCC 09:35 | PROVIDERS: PCP Hospitalist; Visit Provider Physician Assistant | DX: T81.31XD Disruption of external operation (surgical) wound, not elsewhere classified, subsequent encounter (principal); Z87.891 Personal history of nicotine dependence | CPT/HCPCS: 99212; 99213 ==

== ENCOUNTER → 2021-10-24 12:23 | Outpatient (BNVA) | payer OTHER, SELFPAY | PROVIDERS: PCP Hospitalist; Visit Provider Obstetrics & Gynecology | DX: T81.49XD Infection following a procedure, other surgical site, subsequent encounter (principal) | CPT/HCPCS: 99212 ==

== ENCOUNTER 2021-10-25 08:57 | Emergency (ER) | payer OTHER, SELFPAY ==
[2021-10-25 09:59] LABS: COVID-19 Test Positive (Negative); IDNOW Serial# 08D9AD1C
[2021-10-25 10:25] VITALS: BP 129/69; PULSE 90; RESP 18; TEMP 37.2; O2SAT 100; BMI 29.2
--- NOTE | 2021-10-25 10:49 | ED_ITS ---
HPI - URI/Sore Throat General Chief Complaint: Upper Respiratory Symptoms Stated Complaint: covid symptoms Time Seen by Provider: 10/25/21 09:17 Source: patient Mode of arrival: ambulatory Limitations: no limitations History of Present Illness HPI Narrative: 25-year-old female who is vaccinated to COVID presenting to the ED with COVID like symptoms for the past 2 days worse today which include body aches, chills and a sore throat. Denies recent travel or sick contacts. Denies any other symptoms complaints or concerns at this time. MD elicited complaint: sore throat Onset (ago): day(s) (2) Consistency: constant and progressively worsening Severity: mild Able to tolerate fluids by mouth: Yes Exacerbating factors: swallowing Relieving factors: nothing Associated symptoms: chills, myalgias and sore throat Treatments prior to arrival: none Related Data Home Medications Medication Instructions Recorded Confirmed pyridoxine (vitamin B6) 25 mg mg PO 07/28/20 07/26/21 tablet Previous Rx's Medication Instructions Recorded ferrous sulfate 325 mg (65 mg 325 mg PO BID #30 tab 10/04/20 iron) tablet FreeStyle Lite Strips (blood sugar 4 strip MISCELLANEOUS QID 30 Days 10/12/20 diagnostic) #100 strip NS alcohol swabs (Alcohol Wipes) 4 pad TOPICAL .4x day 90 Days #100 10/12/20 ea blood-glucose meter (FreeStyle #1 ea 10/12/20 Austin Lite) lancets 28 gauge (FreeStyle #100 ea 10/12/20 Lancets) cyclobenzaprine 5 mg tablet 5 mg PO TID PRN 30 Days #30 tab 07/12/21 ibuprofen 600 mg tablet 600 mg PO Q8H PRN 30 Days #90 tab 07/12/21 oxycodone 5 mg capsule 5 mg PO Q4H PRN #20 cap 09/12/21 acetaminophen 500 mg tablet 1,000 mg PO QID PRN #14 tab 09/23/21 (Tylenol Extra Strength) ibuprofen 800 mg tablet 800 mg PO Q8H PRN #14 tab 09/23/21 doxycycline hyclate 100 mg capsule 100 mg PO BID 10 Days #20 cap 09/24/21 levofloxacin 500 mg tablet 500 mg PO DAILY 10 Days #10 tab 09/24/21 acetaminophen 500 mg tablet 1,000 mg PO QID PRN #14 tab 10/25/21 (Tylenol Extra Strength) ibuprofen 800 mg tablet 800 mg PO Q8H PRN #14 tab 10/25/21 Allergies Allergy/AdvReac Type Severity Reaction Status Date / Time No Known Allergies Allergy Verified 10/25/21 10:25 [No Known Allergies*] Review of Systems Review of Systems: Constitutional : No Weight loss, No Fever, + Chills, No Night Sweats, + Fatigue, + Malaise ENT/Mouth : No Hearing loss, No Ear Pain, No Nasal Congestion, No Sinus Pain, No Hoarseness, + sore throat, No Rhinorrhea, No Swallowing Difficulty Eyes: No Eye Pain, No Swelling, No Redness, No Foreign Body, No Discharge, No Vision Changes Cardiovascular : No Chest Pain, No SOB, No Dyspnea on Exertion, No Orthopnea, No Edema, No Palpitations Respiratory : No Cough, No Sputum, No Wheezing, No Smoke Exposure, No Dyspnea Gastrointestinal : No Nausea, No Vomiting, No Diarrhea, No Constipation, No abdominal Pain, No Hematochezia, No Melena Genitourinary : no irregular bleeding, No Dysuria, No Urinary Frequency, No Hematuria, No Urinary Incontinence, No Urgency, No Flank Pain, No Urinary Flow Changes, No Hesitancy Musculoskeletal : No joint pain, + Myalgias, No Joint Swelling Skin : No Skin Lesions, No rash Neuro : No Weakness, No Numbness, No Paresthesias, No Loss of Consciousness, No Dizziness, No Headache Psych : No Anxiety/Panic, No Depression, No SI/HI/AH/VH, No Social Issues, Heme/Lymph: No Bruising, No Bleeding,No Lymphadenopathy Endocrine : No Polyuria, No Polydipsia, No Temperature Intolerance Yes all other systems are reviewed and are negative [facility] Past Medical History Attestation statement: The following information was validated with the patient. Medical History Sterilization Supervision of other normal , antepartum Surgical History History of hysteroscopy Hx of section Hx of myomectomy Family History Family History Family/Other History of breast cancer in female Father Hypertension History of prostate cancer Mother Hypertension Hx of diabetes mellitus Hx of cancer of lung Asthma Sister Hypertension Hx of thyroid disease Maternal Grandfather Hypertension Hx of cancer of lung Maternal Grandmother Hypertension Hx of cardiovascular disorder Paternal Grandfather Hypertension Paternal Grandmother Hypertension Social History Social History Housing: House Alcohol intake: never Patient Tobacco Use Status: Never used Tobacco e-Cigarette/Vaping Use: Never Used Second Hand Smoke Exposure: No Advance Directives: No Advance Directives Information Provided: No Patient : No service: No Current occupational status: unemployed Sexual orientation: Straight/Heterosexual Gender identity: Female Physical Exam Vital Signs: Vital Signs: Last Vital Signs Temp 98.9 F 10/25/21 10:25 Pulse 90 10/25/21 10:25 Resp 18 10/25/21 10:25 BP 129/69 10/25/21 10:25 Pulse Ox 100 10/25/21 10:25 BMI result Body Mass Index 29.2 vital signs have been reviewed as normal and appeared to be correct. Blood pressure normal. Heart rate normal. Respiration rate normal. Temperature normal. Oxygen saturation normal. Appearance: Alert. Oriented X3. No acute distress. Head: Normal external exam. Normocephalic. Atraumatic. Eyes: PERRLA. EOMI. Conjunctiva and sclera normal. Eyelids normal. ENT: EAC normal. TM's Normal. Pharynx normal. Uvula midline. Moist mucous membranes. No trismus noted. No drooling noted. No muffled voice noted. Neck: Normal inspection. Neck supple. FROM. No adenopathy. Thyroid Normal. No meningeal signs. No neck mass noted. CVS: Normal heart rate and rhythm. Heart sound normal. Pulses normal throughout. No murmurs/rales/gallops. Respiratory: No respiratory distress. Painless inspiration. Breath sounds normal. No wheezes/rales/rhonchi noted. Chest nontender. No accessory muscle usage noted or decreased air movement noted. Abdomen: Soft and nontender. Bowel sounds normal in all 4 quadrants. No distention noted. No organomegaly noted. No visible injury noted. Back: No CVA tenderness. Full range of motion noted. No rashes/lesion/indur ation/fluctuance or signs of infection noted. Skin: Skin warm and dry. Normal skin color. Normal skin turgor. No rashes/lesions/lacerations noted. Extremities: Extremities exhibit normal range of motion. Extremities nontender. Neuro: Oriented X 3. No motor deficit. No sensory deficit. Reflexes normal. Normal steady gait. No focal neuro deficits noted. Vascular: + radial pulses/+ 2 distal pedal pulses/+2 dorsalis pedis b/l. Normal cap refill. No cyanosis noted to upper extremity nails and lower extremity toes nails. Course Course Course Narrative: 25-year-old female who is vaccinated to COVID presenting to the ED with COVID like symptoms for the past 2 days worse today. Denies recent travel or sick contacts. Denies any other symptoms. On exam patient is alert and oriented x3. Not in any acute distress. Lungs clear to auscultation. CV RRR. No trismus/drooling/stridor. Patient tolerating secretions well. Abdomen is soft and nontender. Patient is positive for COVID. Will DC home with symptomatic treatment instructions to self isolate per CDC guidelines and to return if any new or worsening symptoms. Patient understands agrees to this plan. MDM - URI/Sore Throat Medical Records Attestation: I reviewed the patient's medical records. Lab Data Attestation: I reviewed the patient's lab results. Labs: Lab Results 10/25/21 Range/Units 09:45 COVID-19 ([facility]) Positive A (Negative) COVID-19 Clin Com See Note Discharge Plan Discharge Clinical Impression: COVID-19 Patient Disposition: Home, Self-Care Instructions: COVID-19 (Coronavirus Disease 2019) (ED) Prescriptions: New ibuprofen 800 mg tablet 800 mg PO Q8H PRN (Reason: pain) Qty: 14 RF: 0 acetaminophen [Tylenol Extra Strength] 500 mg tablet 1,000 mg PO QID PRN (Reason: fever or pain) Qty: 14 RF: 0 No Action FreeStyle Lite Strips Strip 4 strip miscellaneous QID 30 Days Qty: 100 RF: 1 (DME) lancets [FreeStyle Lancets] 28 gauge misc See Rx Instructions .ROUTE .MEDSUPPLY Qty: 100 RF: 0 (DME) blood-glucose meter [FreeStyle Austin Lite] Kit See Rx Instructions .ROUTE .MEDSUPPLY Qty: 1 RF: 0 alcohol swabs [Alcohol Wipes] Pads, Medicated 4 pad topical .4x day 90 Days Qty: 100 RF: 0 oxycodone 5 mg capsule 5 mg PO Q4H PRN (Reason: Pain (Scale Score 4-6)) Qty: 20 RF: 0 ibuprofen 800 mg tablet 800 mg PO Q8H PRN (Reason: pain) Qty: 14 RF: 0 acetaminophen [Tylenol Extra Strength] 500 mg tablet 1,000 mg PO QID PRN (Reason: fever or pain) Qty: 14 RF: 0 doxycycline hyclate 100 mg capsule 100 mg PO BID 10 Days Qty: 20 RF: 0 levofloxacin 500 mg tablet 500 mg PO DAILY 10 Days Qty: 10 RF: 0 ibuprofen 600 mg tablet 600 mg PO Q8H PRN (Reason: pain) 30 Days Qty: 90 RF: 1 cyclobenzaprine 5 mg tablet 5 mg PO TID PRN (Reason: muscle spasm) 30 Days Qty: 30 RF: 1 pyridoxine (vitamin B6) 25 mg tablet PO RF: 0 ferrous sulfate 325 mg (65 mg iron) tablet 325 mg PO BID Qty: 30 RF: 4 Referrals: Madyson Conde NP [Primary Care Provider] - 2 days Stand Alone Forms: Work/School Release Print Language: Danish
== END 2021-10-25 11:02 | disposition home or self-care (01) ==
PROVIDERS: Emergency Provider Emergency Medicine; PCP Hospitalist
DX: U07.1 COVID-19 (principal)
CPT/HCPCS: 87635; 99283

== ENCOUNTER 2021-11-01 13:26 | Outpatient (REF) | payer OTHER, SELFPAY ==
[2021-11-01 15:03] LABS: Binax Internal Control QC Valid; Binax Now Covid-19 Ag Negative (Negative)
== END 2021-11-01 13:27 | disposition home or self-care (01) ==
LOC: HO.LAB 13:26
PROVIDERS: Visit Provider Internal Medicine
DX: Z20.822 Contact with and (suspected) exposure to COVID-19 (principal)
CPT/HCPCS: C9803

== ENCOUNTER 2021-12-08 11:59 | Outpatient (REF) | payer OTHER, SELFPAY ==
[2021-12-08 13:34] LABS: Hematocrit 35.3 % (37.0-47.0); Hemoglobin 10.2 g/dl (12.0-16.0); Mean Corpuscular HGB Conc 28.9 g/dl (31.0-35.0); Mean Corpuscular Hemoglobin 19.9 pg (27.0-33.0); Mean Corpuscular Volume 68.9 fL (80.0-98.0); Mean Platelet Volume 10.9 fL (9.4-12.3); Platelet Count 344 X10*3/uL (160-400); Red Blood Count 5.12 X10*6/uL (4.20-5.50); Red Cell Distribution Width 16.4 % (11.0-16.0); White Blood Count 6.9 X10*3/uL (4.8-10.8)
[2021-12-08 14:20] LABS: Folate 8.1 ng/mL (> or = 4.0); Vitamin B12 839 pg/mL (200-900)
== END 2021-12-08 12:00 | disposition home or self-care (01) ==
LOC: HO.WFDLDS 11:59
PROVIDERS: Visit Provider Hospitalist
DX: Z00.00 Encounter for general adult medical examination without abnormal findings (principal); O00.90 Unspecified ectopic pregnancy without intrauterine pregnancy; U07.1 COVID-19; R53.83 Other fatigue
CPT/HCPCS: 36415; 82607; 82746; 85027

== ENCOUNTER 2022-02-24 09:15 | Outpatient (REF) | payer OTHER, SELFPAY ==
[2022-02-24 10:47] LABS: Hematocrit 39.7 % (37.0-47.0); Hemoglobin 11.8 g/dl (12.0-16.0); Mean Corpuscular HGB Conc 29.7 g/dl (31.0-35.0); Mean Corpuscular Hemoglobin 21.1 pg (27.0-33.0); Mean Corpuscular Volume 71.1 fL (80.0-98.0); Mean Platelet Volume 10.6 fL (9.4-12.3); Platelet Count 366 X10*3/uL (160-400); Red Blood Count 5.58 X10*6/uL (4.20-5.50); Red Cell Distribution Width 19.3 % (11.0-16.0); White Blood Count 7.6 X10*3/uL (4.8-10.8)
[2022-02-24 11:33] LABS: HCG Quantitative < 2 mIU/mL; TSH reflex Free T4 0.63 uIU/mL (0.32-4.0)
[2022-02-24 14:17] LABS: CT PCR NOT DETECTED (Not Detect.); NG PCR NOT DETECTED (Not Detect.)
== END 2022-02-24 09:16 | disposition home or self-care (01) ==
LOC: HO.LAB 09:15
PROVIDERS: PCP Hospitalist; Visit Provider Obstetrics & Gynecology
DX: Z01.419 Encounter for gynecological examination (general) (routine) without abnormal findings (principal); N93.9 Abnormal uterine and vaginal bleeding, unspecified
CPT/HCPCS: 36415; 84443; 84702; 85027; 87491; 87591; 88142

== ENCOUNTER 2022-03-27 11:17 | Outpatient (REF) | payer OTHER, SELFPAY ==
--- NOTE | ~2022-03-27 | US_ITS ---
EXAMINATION: US PELVIS CLINICAL INFORMATION: Abnormal uterine and vaginal bleeding COMPARISON: Previous pelvic ultrasound May 2017 TECHNIQUE: Ultrasound of the pelvis is performed using both transabdominal and transvaginal transducers along with Doppler. Transvaginal imaging is performed due to inadequate visualization transabdominally. FINDINGS: The uterus is anteverted and retroflexed and measures 8.2 x 4 x 5.8 cm in dimension. No focal uterine lesion is seen. The previously identified large central fibroid 2017 exam that measured 7 x 6 x 6 cm is no longer seen. Endometrial thickness is normal measuring 7 mm. There is a nabothian cyst in the cervix. The ovaries are normal. The right ovary measures 3.1 x 2.8 x 2.2 cm and the left ovary measures 2.8 x 1.9 x 1.7 cm. There is no fluid in the pelvis. US/US pelvic and transvaginal IMPRESSION: Normal pelvic ultrasound. Previously identified large central uterine fibroid no longer seen.
== END 2022-03-27 11:18 | disposition home or self-care (01) ==
LOC: HO.US 11:17
PROVIDERS: Visit Provider Obstetrics & Gynecology
DX: N93.9 Abnormal uterine and vaginal bleeding, unspecified (principal)
CPT/HCPCS: 76830; 76856

== ENCOUNTER → 2022-04-18 10:35 | Outpatient (BNVA) | payer OTHER, SELFPAY | PROVIDERS: PCP Hospitalist; Visit Provider Obstetrics & Gynecology | DX: N93.9 Abnormal uterine and vaginal bleeding, unspecified (principal) | CPT/HCPCS: 99212 ==

== ENCOUNTER 2022-06-21 17:51 | Emergency (ER) | payer OTHER, SELFPAY ==
[2022-06-21 18:12] VITALS: BP 127/82; PULSE 67; RESP 18; TEMP 36.9; O2SAT 98; BMI 28.7
--- NOTE | 2022-06-21 20:18 | ED_ITS ---
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 Patient states that the pain radiates from her low back down the backs of her legs. Patient states it is difficult to get comfortable. Patient denies any dizziness, lightheadedness, abdominal pain, nausea, vomiting, fever, chills, blurry vision, double vision, loss of vision, chest pain, difficulty breathing, shortness of breath, night sweats, pain with urination, increased urinary frequency, increased urinary urgency, blood in her urine or stool, syncope or a near syncopal episode, recent trauma or falls, bowel incontinence, bladder incontinence, bowel retention, bladder retention, or any other complaints at this time. Onset (ago): week(s) (2) Location: back Severity: mild Severity scale (1-10): 2 Quality: dull Pain Consistency: intermittent Relieving factors: none Exacerbating factors: none Associated symptoms: denies other symptoms Treatments prior to arrival: none Related Data Home Medications Medication Instructions Recorded Confirmed pyridoxine (vitamin B6) 25 mg mg PO 07/28/20 07/26/21 tablet Previous Rx's Medication Instructions Recorded acetaminophen 500 mg tablet 1,000 mg PO QID PRN fever or pain 09/23/21 (Tylenol Extra Strength) #14 tabs ferrous sulfate 325 mg (65 mg 325 mg PO BID #30 tabs 12/20/21 iron) tablet medroxyprogesterone 10 mg tablet 10 mg PO DAILY 10 days #30 tabs 04/18/22 (Provera) cyclobenzaprine 5 mg tablet 5 mg PO TID PRN muscle spasm 7 06/21/22 days #21 tabs Allergies Allergy/AdvReac Type Severity Reaction Status Date / Time No Known Allergies Allergy Verified 04/18/22 10:43 [No Known Allergies*] Review of Systems Constitutional: Constitutional: Reports no additional constitutional complaints, Denies chills, Denies fever(s) and Denies night sweats Eyes: Eyes: Reports no additional eye complaints, Denies blurry vision, Denies change in vision, Denies diplopia, Denies eye discharge, Denies loss of vision and Denies eye pain ENT: Denies dizziness Cardiovascular: Cardiovascular: Reports no additional cardiovascular complaints, Denies chest pain, Denies lightheadedness, Denies Loss of Consciousness and Denies dyspnea Respiratory: Respiratory: Reports no additional respiratory complaints and Denies dyspnea Gastrointestinal: Gastrointestinal: Reports no additional gastrointestinal complaints, Denies abdominal pain, Denies melena, Denies hematochezia, Denies change in bowel habits and Denies change in stool character Genitourinary: Genitourinary: Denies hematuria, Denies urinary frequency, Denies dysuria, Denies urinary incontinence, Denies urinary hesitancy and Denies urinary urgency Musculoskeletal: Musculoskeletal: Reports no additional musculoskeletal complaints, Reports back pain, Denies numbness and Denies tingling Neurologic: Denies dizziness, Denies loss of vision, Denies numbness and Denies tingling Psychiatric: Psychiatric: Reports no additional psychiatric complaints Endocrine: Endocrine: Reports no additional endocrine complaints Hematologic/Lymphatic: Hematologic/Lymphatic: Reports no additional hematologic/lymphatic complaints Allergic/Immunologic: Allergic/Immunologic: Reports no additional allergic/immunologic complaints PMF Past Medical History Attestation statement: The following information was validated with the patient. Source: old records reviewed Medical History Sterilization Supervision of other normal , antepartum Surgical History H/O bilateral salpingectomy H/O tubal ligation History of hysteroscopy Hx of section Hx of myomectomy Family History Family History Family/Other History of breast cancer in female Father Hypertension History of prostate cancer Mother Hypertension Hx of diabetes mellitus Hx of cancer of lung Asthma Sister Hypertension Hx of thyroid disease Maternal Grandfather Hypertension Hx of cancer of lung Maternal Grandmother Hypertension Hx of cardiovascular disorder Paternal Grandfather Hypertension Paternal Grandmother Hypertension Social History Social History Housing: House Alcohol intake: never Patient Tobacco Use Status: Never used Tobacco e-Cigarette/Vaping Use: Never Used Second Hand Smoke Exposure: No Advance Directives: No Advance Directives Information Provided: No service: No Current occupational status: unemployed Current occupational exposures/hazards: No Sexual orientation: Straight/Heterosexual Gender identity: Female Cognitive needs: No Hearing needs: No Vision needs: No Physical Exam ED Vital Signs: Vital Signs - 24 hr 06/21/22 18:12 Temperature 98.4 F Pulse Rate 67 Respiratory Rate 18 Blood Pressure 127/82 Pulse Oximetry 98 Oxygen Delivery Method Room Air BMI result Body Mass Index 28.7 Const General: cooperative, no acute distress, alert and awake Nutritional Appearance: well nourished Orientation/consciousness: patient oriented x3 Limitations: no limitations HENMT Head: Yes normal to inspection and Yes atraumatic Ears: hearing grossly normal bilaterally and external ears normal General nose exam: Normal external nose present, no nasal discharge noted and no epistaxis Face and sinus: Yes normal facial exam, No abrasion and No laceration Mouth: Normal oral and palatal mucosa present, no drooling and no muffled voice Eyes General: appearance normal, both eyes and all related structures Periorbital: periorbital findings normal Eyelids: Yes eyelids normal Conjunctivae: conjunctivae normal Pupils: Equal, round and reactive pupils present EOM: EOMs intact bilaterally Neck Neck: Yes normal visual inspection, Yes full ROM and Yes no lymphadenopathy Chest Chest palpation & inspection: normal inspection of the chest Resp Effort & Inspection: normal respiratory effort and able to speak in complete sentences Auscultation: clear to auscultation bilaterally Cardio Rate: regular rate Rhythm: regular rhythm GI Inspection: Yes normal to inspection General: Yes no CVA tenderness Back/Spine/Pelvis Back: no CVA tenderness Cervical Spine: normal cervical lordosis and cervical ROM normal Thoracic/Lumbar Spine: thoracic and lumbar spine normal to inspection and thoraco-lumbar ROM normal Neuro General: patient oriented x3 and moves all extremities Cranial nerves: Yes Equal, round and reactive pupils present Cognition (Neuro): normal cognition Motor exam (neuro): 5/5 motor strength present throughout Sensory Exam: Normal double simultaneous stimulation for sensation Coordination: [id number] test normal Extrem General: Yes normal to inspection, Yes full ROM and Yes capillary refill normal Psych Appearance: grossly normal Mental Status: mental status grossly normal Affect: normal affect Attitude: cooperative Thought process: Normal thought process present Thought content: Normal thought content present Insight: Good insight present (Psych) Medical Decision Making MDM Narrative Medical decision making narrative: Patient is a 26 year old female presenting to the emergency department today with low back pain that radiates into her legs. Patient's physical exam was unremarkable. I explained my physical exam findings to the patient. I answered all questions asked by the patient. Patient received IM Toradol and PO Flexeril which she stated helped her pain significantly. I stressed the importance of the patient taking her medication as prescribed. I stressed the importance of the patient following up with her primary care provider and an orthopedist. I stressed the importance of the patient returning to the emergency department immediately if her symptoms were to worsen or if she were to develop any dizziness, shortness of breath, difficulty breathing, chest pain, blurry vision, loss of vision, nausea, vomiting, abdominal pain, fever, chills, back pain, or any other complaints. Patient verbalized agreement and understanding with this treatment plan and discharge. Differential Diagnosis Differential Diagnosis: sciatic nerve pain Medical Records Medical records reviewed: Yes I reviewed the patient's medical records. Discharge Plan Discharge Clinical Impression: Sciatica Patient Disposition: Home, Self-Care Instructions: Sciatica (ED), Back Pain (ED) Additional Instructions: Follow up with your primary care provider and an orthopedic provider. Return to the emergency department immediately if your symptoms worsen or if you develop any dizziness, shortness of breath, difficulty breathing, chest pain, blurry vision, loss of vision, nausea, vomiting, abdominal pain, fever, chills, back pain, or any other complaints. Frederick un seguimiento con nevarez proveedor de atenci?n primaria y un proveedor ortop?dico. Regrese al departamento de emergencias de inmediato si kimber s?ntomas empeoran o si presenta mareos, falta de aire, dificultad para respirar, dolor de pecho, visi?n borrosa, p?rdida de la visi?n, n?useas, v?mitos, dolor abdominal, fiebre, escalofr?os, dolor de espalda o cualquier otras quejas. Prescriptions: New cyclobenzaprine 5 mg tablet 5 mg PO TID PRN (Reason: muscle spasm) 7 Days Qty: 21 0RF No Action ferrous sulfate 325 mg (65 mg iron) tablet 325 mg PO BID Qty: 30 4RF acetaminophen [Tylenol Extra Strength] 500 mg tablet 1,000 mg PO QID PRN (Reason: fever or pain) Qty: 14 0RF pyridoxine (vitamin B6) 25 mg tablet PO medroxyprogesterone [Provera] 10 mg tablet 10 mg PO DAILY 10 Days Qty: 30 0RF Rx Instructions: start Provera 1 tablet daily from day 15-24 cyclically every months, day 1 being 1st day of menses Referrals: [facility] [Provider Group] (If pain persists over 1 week, call to establish and follow up with an orthopedic provider. Si el dolor persiste m?s de 1 semana, llame para establecer y hacer un seguimiento con un proveedor ortop?dico.) Madyson Conde, [employer] [Primary Care Provider] - Interventions: ED Discharge Assessment Last Done: 06/21/22 20:47 Discharge Date/Time: 06/21/22 20:48 Print Language: Wolof
[2022-06-21] MEDS: Cyclobenzaprine HCl 5 MG TABLET PO (20:42)
[2022-06-21] MEDS: Ketorolac Tromethamine 15 MG/ML VIAL IM (20:42)
== END 2022-06-21 20:48 | disposition home or self-care (01) ==
PROVIDERS: Emergency Provider Emergency Medicine; PCP Hospitalist
DX: M54.42 Lumbago with sciatica, left side (principal); M54.41 Lumbago with sciatica, right side; M79.604 Pain in right leg; M79.605 Pain in left leg; Z79.899 Other long term (current) drug therapy
CPT/HCPCS: 96372; 99283; 99284; J1885

== ENCOUNTER → 2022-08-10 10:52 | Outpatient (BNVA) | payer OTHER, SELFPAY | PROVIDERS: PCP Hospitalist; Visit Provider Obstetrics & Gynecology | DX: N93.9 Abnormal uterine and vaginal bleeding, unspecified (principal) | CPT/HCPCS: 99212 ==

== ENCOUNTER 2022-10-17 10:41 | Emergency (ER) | payer OTHER, MEDICAID, SELFPAY ==
[2022-10-17 12:20] VITALS: BP 126/81; PULSE 92; RESP 18; TEMP 36.9; O2SAT 99; BMI 29.2
--- NOTE | 2022-10-17 14:45 | ED_ITS ---
HPI - General Adult General Chief complaint: General Medical Stated complaint: R side head pain/eye pain/Syncope T-4 days Time Seen by Provider: 10/17/22 14:22 Source: patient Mode of arrival: ambulatory Limitations: no limitations History of Present Illness HPI narrative: 26 yo female presents to the ER with right eye redness and pain for the last 3 days. She reports she recently had the flu a week or two ago. Four days ago she had a syncopal event when she was on the toilet, she did not sustain any injuries. She reports starting on that day of the syncope she had noticed her right eye was red and painful when she touched it. She reports over the last couple of days her eye has become more red and painful. She also has pain in her right ear. She denies any vision changes, foreign body sensation. She states there was some discharge this morning when she woke up. She has no further fevers or symptoms of the flu. She is feeling better overall. MD complaint: Right eye redness and pain Onset (ago): day(s) Location: face Radiation: non-radiation Severity: mild and moderate Quality: aching Pain Consistency: intermittent Relieving factors: none Exacerbating factors: other (Palpation) Treatments prior to arrival: none Related Data Home Medications Medication Instructions Recorded Confirmed pyridoxine (vitamin B6) 25 mg mg PO 07/28/20 07/26/21 tablet Previous Rx's Medication Instructions Recorded ferrous sulfate 325 mg (65 mg 325 mg PO BID #30 tabs 12/20/21 iron) tablet medroxyprogesterone 10 mg tablet 10 mg PO DAILY 10 days #30 tabs 08/10/22 (Provera) sulfacetamide sodium 10 % eye drops 1 drp ophthalmic (eye) Q4H #5 mL 10/17/22 Allergies Allergy/AdvReac Type Severity Reaction Status Date / Time No Known Allergies Allergy Verified 08/10/22 11:00 [No Known Allergies*] Review of Systems Review of Systems: Constitutional: No Fever, No Chills ENT/Mouth: No sore throat, No Rhinorrhea, No Swallowing Difficulty, +Otalgia Eyes: + Eye Pain, No Swelling, + Redness Cardiovascular: No Chest Pain, No SOB Respiratory: No Cough, No Sputum, No Wheezing, No dyspnea Gastrointestinal: No Nausea, No Vomiting, No Diarrhea, No abdominal Pain Musculoskeletal: No joint pain, No Myalgias Skin: No Skin Lesions, No rash Neuro: No Weakness, No Numbness, No Dizziness, No Headache Psych: No Anxiety/Panic, No Depression Heme/Lymph: No Bruising, No Lymphadenopathy PMF Past Medical History Medical History Sterilization Supervision of other normal , antepartum Surgical History H/O bilateral salpingectomy H/O tubal ligation History of hysteroscopy Hx of section Hx of myomectomy Family History Family History Family/Other History of breast cancer in female Father Hypertension History of prostate cancer Mother Hypertension Hx of diabetes mellitus Hx of cancer of lung Asthma Sister Hypertension Hx of thyroid disease Maternal Grandfather Hypertension Hx of cancer of lung Maternal Grandmother Hypertension Hx of cardiovascular disorder Paternal Grandfather Hypertension Paternal Grandmother Hypertension Social History Social History Housing: House Alcohol intake: never Patient Tobacco Use Status: Never used Tobacco e-Cigarette/Vaping Use: Never Used Second Hand Smoke Exposure: No Advance Directives: No Advance Directives Information Provided: No service: No Current occupational status: unemployed Current occupational exposures/hazards: No Sexual orientation: Straight/Heterosexual Gender identity: Female Cognitive needs: No Hearing needs: No Vision needs: No Physical Exam ED Vital Signs: Vital Signs - 24 hr 10/17/22 12:20 Temperature 98.4 F Pulse Rate 92 Respiratory Rate 18 Blood Pressure 126/81 Pulse Oximetry 99 Oxygen Delivery Method Room Air BMI result Body Mass Index 29.2 Appearance: Alert. Oriented X3. No acute distress. Eyes: Right conjunctiva with moderate generalized injection, sclera injected as well. Pupils equal, round and reactive to light. EOMI. no nystagmus. Mild swelling of the right upper eyelid. No ptosis ENT: Pharynx normal. Normal inspection of bilateral TMs Neck: Normal inspection. Neck supple. No midline tenderness. CVS: Normal heart rate and rhythm. Pulses normal. Respiratory: No respiratory distress. Breath sounds normal. Abdomen: Soft and nontender. +BS x4 Skin: Skin warm and dry. Normal skin color. Normal skin turgor. No rashes. Extremities: No lower extremity edema. Neuro: Oriented X 3. No motor deficit. No sensory deficit. Normal speech and cognition. Steady gait. Course Course Course Narrative: 26 yo female presents to the ER for evaluation of right eye redness and pain. Recent viral illness, most likely viral conjunctivitis however given reports of purulent discharge today will give topical antibiotics to treat. Patient was seen and evaluated after her syncopal episode at [facility]. She was given IV fluids. Unknown if she had imaging of her head but she denies any head trauma. Comfortable discharge home with topical antibiotics and outpatient follow-up. Discharge Plan Discharge Clinical Impression: Conjunctivitis Patient Disposition: Home, Self-Care Instructions: Conjunctivitis (ED) Additional Instructions: Use warm compresses on your left eye multiple times per day. Take motrin and tylenol as needed for pain follow up with the eye doctor if needed. Use compresas tibias en nevarez amara loraine varias veces al d?a. Celebration motrin y tylenol seg?n sea necesario para el dolor seguimiento con el oftalm?logo si es necesario. Prescriptions: New sulfacetamide sodium 10 % drops 1 drp ophthalmic (eye) Q4H Qty: 5 0RF No Action ferrous sulfate 325 mg (65 mg iron) tablet 325 mg PO BID Qty: 30 4RF pyridoxine (vitamin B6) 25 mg tablet PO medroxyprogesterone [Provera] 10 mg tablet 10 mg PO DAILY 10 Days Qty: 30 3RF Rx Instructions: start Provera 1 tablet daily from day 15-24 cyclically every months, day 1 being 1st day of menses Referrals: Amrik Sarmiento [Physician] - aMdyson Conde NP [Primary Care Provider] - Interventions: ED Discharge Assessment Last Done: 10/17/22 14:56 Discharge Date/Time: 10/17/22 14:57 Print Language: [place]
== END 2022-10-17 14:57 | disposition home or self-care (01) ==
PROVIDERS: Emergency Provider Student in an Organized Health Care Education/Training Program; PCP Hospitalist
DX: H10.33 Unspecified acute conjunctivitis, bilateral (principal); R55 Syncope and collapse; Z79.899 Other long term (current) drug therapy
CPT/HCPCS: 99282

== ENCOUNTER 2022-10-19 08:23 | Emergency (ER) | payer OTHER, MEDICAID, SELFPAY ==
[2022-10-19 08:25] VITALS: BP 151/84; PULSE 108; RESP 18; TEMP 36.8; O2SAT 100; BMI 30.5
[2022-10-19 08:37] LABS: MANUAL DIFF FLAG NO
[2022-10-19 08:42] LABS: Basophils Percent Auto 0.3 % (0-2); Eosinophils Absolute Auto 0.2 X10*3/uL (0.0-0.4); Eosinophils Percent Auto 1.7 % (0-4); Hematocrit 39.4 % (37.0-47.0); Hemoglobin 12.1 g/dl (12.0-16.0); Imm Gran Abs Auto 0.06 X10*3/uL (0.00-0.03); Imm Gran Pct Auto 0.6 % (0.0-0.4); Lymphocytes Percent Auto 19.7 % (20-40); Mean Corpuscular HGB Conc 30.7 g/dl (31.0-35.0); Mean Platelet Volume 9.6 fL (9.4-12.3); Monocytes Absolute Auto 0.6 X10*3/uL (0.1-1.2); Neutrophils Absolute Auto 7.1 x10*3/uL (2.0-8.3); Neutrophils Percent Auto 71.7 % (45-73); Platelet Count 427 X10*3/uL (160-400); Red Blood Count 5.05 X10*6/uL (4.20-5.50); Red Cell Distribution Width 13.3 % (11.0-16.0); White Blood Count 9.9 X10*3/uL (4.8-10.8)
[2022-10-19 08:56] LABS: Anion Gap 12 (12-20); Blood Urea Nitrogen 15 mg/dL (9-16); Calcium 9.2 mg/dL (8.4-10.2); Carbon Dioxide 29 mmol/L (22-29); Chloride 104 mmol/L (96-108); Creatinine Clr Calc Pharmacy 98.2; Estimated Glomerular Filt Rate > 60; Glucose Random 95 mg/dL (60-115); Potassium 5.1 mmol/L (3.3-5.1); Sodium 140 mmol/L (135-145)
[2022-10-19 09:17] LABS: Influenza A PCR POSITIVE (Negative); Influenza B PCR NEGATIVE (Negative); Resp Syncy Virus RNA Qual PCR NEGATIVE (Negative); SARS COV2 PCR INHOUSE NEGATIVE (Negative)
--- NOTE | 2022-10-19 12:09 | ED_ITS ---
HPI - General Adult General Chief complaint: General Medical Stated complaint: pain in l side of face and into neck Time Seen by Provider: 10/19/22 11:54 Source: patient Mode of arrival: ambulatory History of Present Illness HPI narrative: 26-year-old female with no significant past medical history presenting to the ED complaining of sinus congestion/rhinorrhea and chills x a few weeks, now with right-sided ELLISON, ear pain/clogging, and right-sided sore throat radiating down neck x a few days. Reports pain with swallowing. Denies fever,, drainage from ear, hearing loss, inability to swallow, fever, cough, SOB Onset (ago): day(s) Related Data Home Medications Medication Instructions Recorded Confirmed pyridoxine (vitamin B6) 25 mg mg PO 07/28/20 07/26/21 tablet Previous Rx's Medication Instructions Recorded ferrous sulfate 325 mg (65 mg 325 mg PO BID #30 tabs 12/20/21 iron) tablet medroxyprogesterone 10 mg tablet 10 mg PO DAILY 10 days #30 tabs 08/10/22 (Provera) sulfacetamide sodium 10 % eye drops 1 drp ophthalmic (eye) Q4H #5 mL 10/17/22 acetaminophen 500 mg tablet 500 mg PO Q6H PRN fever or pain 10/19/22 (Tylenol Extra Strength) #14 tabs amoxicillin 875 mg-potassium 1 tab PO BID 7 days #14 tabs 10/19/22 clavulanate 125 mg tablet [id number] 1 cap PO Q4-6H PRN headache #14 10/19/22 50 mg-300 mg-40 mg capsule caps (Fioricet) fluticasone propionate 50 2 spray intranasal DAILY #16 grams 10/19/22 mcg/actuation nasal spray,suspension (Flonase Allergy Relief) Allergies Allergy/AdvReac Type Severity Reaction Status Date / Time No Known Allergies Allergy Verified 08/10/22 11:00 [No Known Allergies*] Review of Systems Review of Systems: Constitutional: No Fever, + Chills ENT/Mouth: + Ear Pain, + Nasal Congestion, No Sinus Pain, No Hoarseness, + sore throat, + Rhinorrhea, +Painful Swallowing Cardiovascular: No Chest Pain, No SOB Respiratory: No Cough, No Sputum, No Wheezing Gastrointestinal: No Nausea, No Vomiting, No Diarrhea, No Constipation, No Abdominal pain Genitourinary: No Dysuria, No Urinary Frequency, No Hematuria, No Flank Pain Musculoskeletal: No joint pain, No Myalgias, No Joint Swelling Skin: No Skin Lesions, No rash Neuro: No Weakness, No Numbness, No Paresthesias Yes all other systems are reviewed and are negative Constitutional: Constitutional: Reports as per [facility] Past Medical History Attestation statement: The following information was validated with the patient. Medical History Sterilization Supervision of other normal , antepartum Surgical History H/O bilateral salpingectomy H/O tubal ligation History of hysteroscopy Hx of section Hx of myomectomy Family History Family History Family/Other History of breast cancer in female Father Hypertension History of prostate cancer Mother Hypertension Hx of diabetes mellitus Hx of cancer of lung Asthma Sister Hypertension Hx of thyroid disease Maternal Grandfather Hypertension Hx of cancer of lung Maternal Grandmother Hypertension Hx of cardiovascular disorder Paternal Grandfather Hypertension Paternal Grandmother Hypertension Social History Social History Housing: House Alcohol intake: never Patient Tobacco Use Status: Never used Tobacco e-Cigarette/Vaping Use: Never Used Second Hand Smoke Exposure: No Advance Directives: No Advance Directives Information Provided: Yes service: No Current occupational status: unemployed Current occupational exposures/hazards: No Sexual orientation: Straight/Heterosexual Gender identity: Female Cognitive needs: No Hearing needs: No Vision needs: No Physical Exam ED Vital Signs: Vital Signs - 24 hr 10/19/22 08:25 10/19/22 12:45 Temperature 98.2 F 98.3 F Pulse Rate 108 H 93 Respiratory Rate 18 14 Blood Pressure 151/84 H 109/80 Pulse Oximetry 100 100 Oxygen Delivery Method Room Air Room Air BMI result Body Mass Index 30.5 Const General: cooperative, healthy appearing, comfortable and no acute distress Orientation/consciousness: patient oriented x3 Limitations: no limitations HENMT Head: Yes normal to inspection and Yes atraumatic Ears: hearing grossly normal bilaterally, external ears normal, TM's normal bilaterally and mastoids normal General nose exam: Normal external nose present and Nasal discharge present Face and sinus: Yes normal facial exam, No crepitus and No sinus tenderness Throat: Yes uvula midline, Yes abnormal tonsil (Right tonsillar swelling with exudates), No uvula laterally displaced and No uvular edema Eyes General: appearance normal, both eyes and all related structures EOM: EOMs intact bilaterally Neck Other: Right-sided submandibular and anterior cervical lymphadenopathy Neck: Yes normal visual inspection, Yes no meningeal signs, Yes supple, No anterior neck swelling and No torticollis Resp Effort & Inspection: normal respiratory effort, no respiratory distress and no stridor Auscultation: clear to auscultation bilaterally, no crackles, no rales and no rhonchi Cardio Rate: regular rate Heart sounds: S1 normal heart sound present and S2 normal heart sound present Skin Rashes: no rashes Wounds: no wounds Neuro General: patient oriented x3, tone normal and no meningeal signs Extrem General: Yes normal to inspection Course Course Course Narrative: -no leukocytosis. Labs otherwise reassuring. -influenza A positive Results discussed with patient including worrisome signs and symptoms and strict return precautions, and when to return to the emergency department. They verbalized understanding and feel safe for discharge at this time. Medications Administered Discontinued Medications Generic Name Dose Route Start Last Admin Trade Name Avinash PRN Reason Stop Dose Admin Acetaminophen/Butalbital/Caffeine 2 tab 10/19/22 12:17 10/19/22 12:32 Butalb/Acetamin/Caff 50/325/40 Tablet PO 10/19/22 12:18 2 tab ONCE ONE Administration Amoxicillin/Clavulanate Potassium 875 mg 10/19/22 12:09 10/19/22 12:32 Amoxicillin/Potassium Clav 875 Mg Tablet PO 10/19/22 12:10 875 mg ONCE ONE Administration Medical Decision Making Medical Decision Making MDM Narrative: 26-year-old female with no significant past medical history presenting to the ED complaining of sinus congestion/rhinorrhea and chills x a few weeks, now with right-sided ear pain/clogging, and right-sided sore throat radiating down neck x a few days. On exam mildly tachycardic, NAD, + right tonsillar swelling with exudate, uvula midline, right-sided lymphadenopathy noted, TM/mastoid WNL. Concern for sinusitis vs viral syndrome and pharyngitis. 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 Low suspicion for mastoiditis/malignant otitis externa Plan: Labs ordered in triage, COVID-19/influenza/RSV testing, rapid strep, p.o. Fioricet, Augmentin Differential Diagnosis Differential Diagnoses: The differential diagnosis associated with the presentation includes as above Lab Data MDM Lab Attestation statement: I reviewed the patient's lab results. Result Diagrams: 10/19/22 08:33 10/19/22 08:33 Labs: Lab Results 10/19/22 10/19/22 10/19/22 Range/Units 08:33 08:33 08:33 WBC 9.9 (4.8-10.8) X10*3/uL RBC 5.05 (4.20-5.50) X10*6/uL Hgb 12.1 (12.0-16.0) g/dl Hct 39.4 (37.0-47.0) % MCV 78.0 L (80.0-98.0) fL MCH 24.0 L (27.0-33.0) pg MCHC 30.7 L (31.0-35.0) g/dl RDW 13.3 (11.0-16.0) % Plt Count 427 H (160-400) X10*3/uL MPV 9.6 (9.4-12.3) fL Immature Gran % (Auto) 0.6 H (0.0-0.4) % Neut % (Auto) 71.7 (45-73) % Lymph % (Auto) 19.7 L (20-40) % Boone % (Auto) 6.0 (2-11) % Eos % (Auto) 1.7 (0-4) % Baso % (Auto) 0.3 (0-2) % Lymph # (Auto) 2.0 (1.2-4.9) X10*3/uL [place]one # (Auto) 0.6 (0.1-1.2) X10*3/uL Eos # (Auto) 0.2 (0.0-0.4) X10*3/uL Baso # (Auto) 0.0 (0.0-0.2) X10*3/uL Abs Immat Gran (auto) 0.06 H (0.00-0.03) X10*3/uL Absolute Neuts (auto) 7.1 (2.0-8.3) x10*3/uL Absolute Nucleated RBC 0.000 (0.0-0.012) X10*3/uL Nucleated RBC % (auto) 0.0 (0.0-0.2) /100WBC Sodium 140 (135-145) mmol/L Potassium 5.1 D (3.3-5.1) mmol/L Chloride 104 (96-108) mmol/L Carbon Dioxide 29 (22-29) mmol/L Anion Gap 12 (12-20) BUN 15 (9-16) mg/dL Creatinine 0.82 (0.5-1.4) mg/dL Estim Creat Clear Calc 98.2 Estimated GFR > 60 Random Glucose 95 (60-115) mg/dL Calcium 9.2 (8.4-10.2) mg/dL Influenza Type A (PCR) POSITIVE A (Negative) Influenza Type B (PCR) NEGATIVE (Negative) RSV RNA Qual (PCR) NEGATIVE (Negative) SARS-CoV-2 RNA (RT-PCR) NEGATIVE (Negative) S. pyogenes GrpA DEE (Negative) 10/19/22 Range/Units 12:33 WBC (4.8-10.8) X10*3/uL RBC (4.20-5.50) X10*6/uL Hgb (12.0-16.0) g/dl Hct (37.0-47.0) % MCV (80.0-98.0) fL MCH (27.0-33.0) pg MCHC (31.0-35.0) g/dl RDW (11.0-16.0) % Plt Count (160-400) X10*3/uL MPV (9.4-12.3) fL Immature Gran % (Auto) (0.0-0.4) % Neut % (Auto) (45-73) % Lymph % (Auto) (20-40) % Boone % (Auto) (2-11) % Eos % (Auto) (0-4) % Baso % (Auto) (0-2) % Lymph # (Auto) (1.2-4.9) X10*3/uL [place] # (Auto) (0.1-1.2) X10*3/uL Eos # (Auto) (0.0-0.4) X10*3/uL Baso # (Auto) (0.0-0.2) X10*3/uL Abs Immat Gran (auto) (0.00-0.03) X10*3/uL Absolute Neuts (auto) (2.0-8.3) x10*3/uL Absolute Nucleated RBC (0.0-0.012) X10*3/uL Nucleated RBC % (auto) (0.0-0.2) /100WBC Sodium (135-145) mmol/L Potassium (3.3-5.1) mmol/L Chloride (96-108) mmol/L Carbon Dioxide (22-29) mmol/L Anion Gap (12-20) BUN (9-16) mg/dL Creatinine (0.5-1.4) mg/dL Estim Creat Clear Calc Estimated GFR Random Glucose (60-115) mg/dL Calcium (8.4-10.2) mg/dL Influenza Type A (PCR) (Negative) Influenza Type B (PCR) (Negative) RSV RNA Qual (PCR) (Negative) SARS-CoV-2 RNA (RT-PCR) (Negative) S. pyogenes GrpA DEE Negative (Negative) Prescription Management I considered prescription management with: Antiviral and Antibiotic Discharge Plan Discharge Clinical Impression: Influenza A, Pharyngitis Patient Disposition: Home, Self-Care Instructions: Pharyngitis (ED), Influenza (ED) Additional Instructions: You have the flu. You also have strep throat. Augmentin is an antibiotic please take as pres cribed. Flonase is a nasal decongestion. Fioricet for headaches, please take as needed. Be aware Fioricet as Tylenol mixed in do not exceed 4 g in 1 day Please stay hydrated, take Tylenol and Motrin as needed for body aches/fever Rest Wear your mask, cover your mouth, wash your hands, you are contagious If symptoms persist or worsen, fevers are unresolved by medications, you are unable to tolerate liquids/food for more than 6 hours return to the emergency department Usted tiene la gripe. Tambi?n tienes faringitis estreptoc?cica. Augmentin es un antibi?sunil, t?pedraza seg?n lo prescrito. Flonase es un descongestionante nasal. Fioricet para shalom de katerin, t?pedraza seg?n sea necesario. Tenga cuidado con Fioricet ya que Tylenol mezclado no excede los 4 g en 1 d?a Mant?ngase hidratado, tome Tylenol y Motrin seg?n sea necesario para los shalom corporales/fiebre Malone [place] tu mascarilla, cubre tu boca, lava tus nick, eres contagioso Si los s?ntomas persisten o empeoran, la fiebre no se resuelve con medicamentos, no puede tolerar l?quidos/alimentos pinky m?s de 6 horas, regrese al departamento de emergencias. Prescriptions: New gigqkeiemo-otqskcpygfubc-mnzc [Fioricet] 50-300-40 mg capsule 1 cap PO Q4-6H PRN (Reason: headache) Qty: 14 0RF fluticasone propionate [Flonase Allergy Relief] 50 mcg/actuation spray,suspension 2 spray intranasal DAILY Qty: 16 0RF Rx Instructions: administer into each nostril amoxicillin-pot clavulanate 875-125 mg tablet 1 tab PO BID 7 Days Qty: 14 0RF acetaminophen [Tylenol Extra Strength] 500 mg tablet 500 mg PO Q6H PRN (Reason: fever or pain) Qty: 14 0RF No Action ferrous sulfate 325 mg (65 mg iron) tablet 325 mg PO BID Qty: 30 4RF sulfacetamide sodium 10 % drops 1 drp ophthalmic (eye) Q4H Qty: 5 0RF pyridoxine (vitamin B6) 25 mg tablet PO medroxyprogesterone [Provera] 10 mg tablet 10 mg PO DAILY 10 Days Qty: 30 3RF Rx Instructions: start Provera 1 tablet daily from day 15-24 cyclically every months, day 1 being 1st day of menses Referrals: Madyson Conde NP [Primary Care Provider] - 5 days Stand Alone Forms: Work/School Release Interventions: ED Discharge Assessment Last Done: 10/19/22 13:09 Discharge Date/Time: 10/19/22 13:11 Print Language: Upper Sorbian
[2022-10-19] MEDS: Butalb/Acetamin/Caff 50/325/40 TABLET 2 TAB PO (12:32)
[2022-10-19] MEDS: Amoxicillin/Potassium Clav 875 MG TABLET PO (12:32)
[2022-10-19 12:45] VITALS: BP 109/80; PULSE 93; RESP 14; TEMP 36.8; O2SAT 100
[2022-10-19 12:59] LABS: Strep A Nucleic Acid Negative (Negative)
== END 2022-10-19 13:11 | disposition home or self-care (01) ==
PROVIDERS: Physician Assistant; Emergency Provider Student in an Organized Health Care Education/Training Program; PCP Hospitalist
DX: J11.1 Influenza due to unidentified influenza virus with other respiratory manifestations (principal); J02.9 Acute pharyngitis, unspecified; Z20.822 Contact with and (suspected) exposure to COVID-19
CPT/HCPCS: 0241U; 36415; 80048; 85025; 87651; 99283

== ENCOUNTER 2023-02-05 09:53 | Outpatient (REF) | payer OTHER, MEDICAID, SELFPAY ==
[2023-02-05 10:39] LABS: Hematocrit 44.7 % (37.0-47.0); Hemoglobin 13.6 g/dl (12.0-16.0); Mean Corpuscular HGB Conc 30.4 g/dl (31.0-35.0); Mean Corpuscular Hemoglobin 24.6 pg (27.0-33.0); Mean Corpuscular Volume 80.8 fL (80.0-98.0); Mean Platelet Volume 10.9 fL (9.4-12.3); Platelet Count 320 X10*3/uL (160-400); Red Blood Count 5.53 X10*6/uL (4.20-5.50); Red Cell Distribution Width 14.9 % (11.0-16.0); White Blood Count 8.1 X10*3/uL (4.8-10.8)
[2023-02-05 11:11] LABS: Alanine Aminotransferase 17 U/L (0-31); Albumin Level 4.5 g/dL (3.5-5.0); Alkaline Phosphatase 82 U/L (39-117); Anion Gap 13 (12-20); Aspartate Amino Transferase 18 U/L (5-31); Bilirubin Total 0.6 mg/dL (0.0-1.0); Blood Urea Nitrogen 15 mg/dL (9-16); Calcium 9.3 mg/dL (8.4-10.2); Carbon Dioxide 29 mmol/L (22-29); Chloride 105 mmol/L (96-108); Cholesterol 181 mg/dL; Estimated Glomerular Filt Rate > 60; Glucose Fasting 78 mg/dL (60-99); HDL Cholesterol 43 mg/dL; LDL Cholesterol Calculated 114 mg/dl; Sodium 142 mmol/L (135-145); Total Protein 7.1 g/dL (6.5-8.0); Triglycerides 120 mg/dL
[2023-02-05 11:27] LABS: TSH reflex Free T4 0.68 uIU/mL (0.32-4.0)
== END 2023-02-05 09:54 | disposition home or self-care (01) ==
LOC: HO.LAB 09:53
PROVIDERS: PCP Hospitalist; Visit Provider Hospitalist
DX: Z00.00 Encounter for general adult medical examination without abnormal findings (principal); E66.3 Overweight; R53.83 Other fatigue; Z86.2 Personal history of diseases of the blood and blood-forming organs and certain disorders involving the immune mechanism
CPT/HCPCS: 36415; 80053; 80061; 84443; 85027

== ENCOUNTER 2023-05-07 13:52 | Outpatient (AMB) | payer OTHER, SELFPAY ==
[2023-05-07 14:00] VITALS: BP 114/66; PULSE 67; RESP 12; TEMP 36.6; O2SAT 99; BMI 31.1
--- NOTE | 2023-05-07 14:00 | A.OFFPC_ITS ---
Vital Signs 05/07/23 14:00 Height 5 ft 2 in Weight 170 lb 4 oz BMI 31.1 BP 114/66 Blood Pressure Location Rt brachial Position Sitting Respiration 12 Pulse 67 Pulse Source Pulse Oximeter Temp 97.9 F Temp Source Temporal Artery Scan Pulse Oximetry (%) 99 Oxygen Delivery Method Room Air Intake Visit Reasons: Throat Discomfort Intake Note: Patient states that shes been having the discomfort for about a week and its been hurting really bad. Patient states that she has pain in her bones that occurs for a couple minutes then go away and come back. Manufacturing Lab Technician Required: Yes Manufacturing Lab Technician Name: Carla ([id number]) Accompanied by: Daughter Allergies No Known Allergies [No Known Allergies*] Allergy (Verified 05/07/23 15:00) Medication List - Last Reconciled 05/07/23 by Philipp Blake CNP acetaminophen (Tylenol Extra Strength) 500 mg PO Q6H PRN sclmwtjbka-ayjupzdovjkqg-qtuc 50-300-40 mg (Fioricet) 1 cap PO Q4-6H PRN fluticasone propionate 50 mcg/actuation (Flonase Allergy Relief) 2 sprays intranasal DAILY pyridoxine (vitamin B6) mg PO Tobacco use date assessed: 01/30/23 Dental Screening Dental Screen Date: 05/07/23 Did you have a dental visit in the last 12 months?: No Did you have a dental problem in the last 6 months where you did not have access to dental care?: No Was dental information given to patient?: Patient has dentist HPI HPI Comments History of Present Illness Details 27 y/o Croatian speaking female presents with c/o persistent pain with swallowing for the past 3 months. She states if feels as though there is a ball in her throat. She reports nonproductive cough for the past 3 nights. No SOB, fever, chills, or weakness. She also reports intermittent pain in her back, shoulders, and knee for 2-3 months. She reports intermittent fatigue fatigue for the past 3 months. She attributes her symptoms to h/o low hemoglobin. She notes that she takes OTC Iron. Interpretation by a professional conference interpreter via electronic tablet [facility] Medical History Sterilization Supervision of other normal , antepartum Surgical History H/O bilateral salpingectomy H/O tubal ligation History of hysteroscopy Hx of section Hx of myomectomy Family History (Updated 05/07/23 @ 14:15 by Darlin Byrd MA) Family/Other History of breast cancer in female Father Hypertension History of prostate cancer Mother Hypertension Hx of diabetes mellitus Hx of cancer of lung Asthma Sister Hypertension Hx of thyroid disease Maternal Grandfather Hypertension Hx of cancer of lung Maternal Grandmother Hypertension Hx of cardiovascular disorder Paternal Grandfather Hypertension Paternal Grandmother Hypertension Other Mental health disorder Social History Housing: House Alcohol intake: never Patient Tobacco Use Status: Never used Tobacco e-Cigarette/Vaping Use: Never Used Second Hand Smoke Exposure: No service: No Current occupational status: unemployed Current occupational exposures/hazards: No Sexual orientation: Straight/Heterosexual Gender identity: Female Cognitive needs: No Hearing needs: No Vision needs: Yes Female Reproductive History Menstrual Age of Menarche: 12 Questionnaire Thrive Questionnaire Date Thrive assessed: 01/30/23 STEVEN-7 AMB Questionnaire STEVEN-7 Date STEVEN - 7 assessed: 01/30/23 Source: Developed by Drs. Juarez Kuhn, Helena Ferreira, Rogerio Taylor and colleagues, with an educational jessica from [employer]. Review of Systems Const Details: Const Denies chills, Reports fatigue, Denies fever(s), Denies headache(s) and Denies weakness ENT Reports as per HPI Card Denies chest pain, Denies lightheadedness, Denies dyspnea and Denies other (Palpitations) Resp Denies cough, Denies dyspnea, Denies wheezing and Denies other ( shortness of breath) GI Denies abdominal pain, Denies melena, Denies hematochezia, Denies change in bowel habits, Denies dyspepsia and Denies nausea Denies hematuria and Denies dysuria Musc Denies abnormal gait, Denies myalgias, Denies arthralgias, Denies numbness and Denies tingling Skin/Breast Denies rash, Denies unusual bruising and Denies wounds Neuro Denies abnormal gait, Denies dizziness, Denies headache(s), Denies memory loss, Denies numbness, Denies Sensory deficit (Neuro), Denies tingling and Denies weakness Psych Denies anxiety and Denies depression Endo Denies cold intolerance, Reports fatigue, Denies heat intolerance, Denies polydipsia and Denies polyuria Aller/Immun Denies wheezing Physical exam (Primary Care) Vital Signs: Last Vital Signs Temp 97.9 F 05/07/23 14:00 Pulse 67 05/07/23 14:00 Resp 12 05/07/23 14:00 BP 114/66 05/07/23 14:00 Pulse Ox 99 05/07/23 14:00 Oxygen Delivery Method Room Air 05/07/23 14:00 BMI result Body Mass Index 31.1 Tobacco/Smoking Status: Tobacco use Status Tobacco use date assessed 01/30/23 05/07/23 14:16 Patient Tobacco Use Status Never used Tobacco 05/07/23 14:16 e-Cigarette/Vaping Use Never Used 05/07/23 14:16 Thrive Assessment: Date of Thrive Assessment Date Thrive assessed 01/30/23 05/07/23 14:16 Const Other: General: no acute distress and well developed Nutritional Appearance: well nourished Orientation/consciousness: patient oriented x3 HENMT Head is normocephalic Bilateral ear canal and TM are normal Nasal turbinates and oropharynx are pink and moist Sinuses are nontender with palpation No auricular or cervical lymphadenopathy Eyes General: appearance normal, both eyes and all related structures Pupils: Equal, round and reactive pupils present EOM: EOMs intact bilaterally Resp Effort & Inspection: normal respiratory effort Auscultation: clear to auscultation bilaterally Cardio Rate: regular rate Rhythm: regular rhythm Heart sounds: S1 normal heart sound present, S2 normal heart sound present, no gallops, no murmurs and no rubs GI Palpation (GI): No Abdominal aortic bruit present, Soft to palpation, nontender, No hepatosplenomegaly present and No Rebound tenderness present Auscultation: normal bowel sounds General: Yes no CVA tenderness Back/Spine/Pelvis Back: no CVA tenderness Cervical Spine: cervical ROM normal and No Cervical spine tenderness Thoracic/Lumbar Spine: thoraco-lumbar ROM normal, No pain with thoraco-lumbar ROM, No thoracic spinal tenderness and No lumbar spinal tenderness Extrem General: Yes normal to inspection, No edema and No calf tenderness Skin General: warm and dry. Normal skin color. Normal skin turgor Lesions: no lesions Rashes: no rashes Trauma: no lacerations or abrasions Wounds: no wounds Nails: normal Neuro General: patient oriented x3, gait normal and no focal neuro deficit Cranial nerves: Yes Equal, round and reactive pupils present Cognition (Neuro): normal cognition Gait exam (Neuro): Normal gait present Motor exam (neuro): 5/5 motor strength present throughout Sensory Exam: No Sensory deficit (Neuro) Psych Affect: normal affect Assessment and Plan Assessment & Plan (1) Pain with swallowing: Code(s): R13.10 - Dysphagia, unspecified Plan: Reports persistent pain with swallowing for the past 3 months. She states if f eels as though there is a ball in her throat. She reports nonproductive cough for the past 3 nights. No SOB, fever, chills, or weakness. Physical exam is unremarkable Likely viral illness though possibly allergies No exam evidence of bacterial infection Zyrtec daily as prescribed Adequate hydration encouraged Tylenol or Motrin for pain or discomfort May gargle with salt water ENT referral made Return with worsening or new symptoms Verbalized understanding and agreed with treatment plan. (2) Joint pain: Code(s): M25.50 - Pain in unspecified joint Plan: She also reports intermittent pain in her back, shoulders, and knee for 2-3 months Likely viral illness Tylenol or ibuprofen for pain or discomfort Return with new or worsening symptoms Verbalized understanding and agreed with treatment plan. (3) Fatigue: Code(s): R53.83 - Other fatigue Plan: She reports intermittent fatigue fatigue for the past 3 months. She attributes her symptoms to h/o low hemoglobin. She notes that she takes OTC Iron supplement. Likely due to anemia, although possible thyroid disease, or vitamins deficiency CBC, CMP, TSH, and vitamin-D level ordered. Encouraged to get blood work done Will review labs results and make changes to her care plan if warranted Return with new or worsening symptoms Verbalized understanding and agreed with treatment plan. Orders: Orders Complete Blood Count Auto Diff Today M25.50 - Pain in unspecified joint, R13.10 - Dysphagia, unspecified, R53.83 - Other fatigue Comprehensive [place]. Panel Fast Today M25.50 - Pain in unspecified joint, R13.10 - Dysphagia, unspecified, R53.83 - Other fatigue TSH reflex Free T4 Today R53.83 - Other fatigue Vitamin D 25-OH Total Today R53.83 - Other fatigue Referrals Ear/Nose/Throat Referral R13.10 - Dysphagia, unspecified Medications: New cetirizine (Zyrtec) 10 mg PO DAILY 30 tabs 2RF 30 days Coding Level of Care Code Est Pt Level 4 (80643) Diagnoses Pain with swallowing R13.10 Joint pain M25.50 Fatigue R53.83 Time Spent (min) 35
== END 2023-05-07 15:27 | disposition home or self-care (01) ==
PROVIDERS: PCP Hospitalist; Visit Provider Nurse Practitioner Family
DX: R13.10 Dysphagia, unspecified (principal); M25.50 Pain in unspecified joint; R53.83 Other fatigue
CPT/HCPCS: 99214

== ENCOUNTER 2023-05-14 11:53 | Outpatient (REF) | payer OTHER, MEDICAID, SELFPAY ==
[2023-05-14 12:02] LABS: MANUAL DIFF FLAG NO
[2023-05-14 13:30] LABS: Basophils Percent Auto 0.5 % (0-2); Eosinophils Absolute Auto 0.1 X10*3/uL (0.0-0.4); Eosinophils Percent Auto 1.1 % (0-4); Hematocrit 44.2 % (37.0-47.0); Imm Gran Abs Auto 0.02 X10*3/uL (0.00-0.03); Imm Gran Pct Auto 0.2 % (0.0-0.4); Lymphocytes Percent Auto 24.1 % (20-40); Mean Corpuscular HGB Conc 31.7 g/dl (31.0-35.0); Mean Corpuscular Volume 82.2 fL (80.0-98.0); Mean Platelet Volume 11.1 fL (9.4-12.3); Monocytes Absolute Auto 0.3 X10*3/uL (0.1-1.2); Monocytes Percent Auto 4.1 % (2-11); Neutrophils Absolute Auto 5.8 x10*3/uL (2.0-8.3); Platelet Count 355 X10*3/uL (160-400); Red Blood Count 5.38 X10*6/uL (4.20-5.50); Red Cell Distribution Width 13.7 % (11.0-16.0); White Blood Count 8.3 X10*3/uL (4.8-10.8)
[2023-05-14 13:55] LABS: Alanine Aminotransferase 18 U/L (0-31); Albumin Level 4.6 g/dL (3.5-5.0); Alkaline Phosphatase 68 U/L (39-117); Anion Gap 10 (12-20); Aspartate Amino Transferase 21 U/L (5-31); Bilirubin Total 0.5 mg/dL (0.0-1.0); Blood Urea Nitrogen 11 mg/dL (9-16); Carbon Dioxide 30 mmol/L (22-29); Chloride 103 mmol/L (96-108); Estimated Glomerular Filt Rate > 60; Glucose Fasting 77 mg/dL (60-99); Potassium 4.2 mmol/L (3.3-5.1); Sodium 139 mmol/L (135-145); Total Protein 8.1 g/dL (6.5-8.0)
[2023-05-14 14:13] LABS: TSH reflex Free T4 0.52 uIU/mL (0.32-4.0); Vitamin D 25-OH Total 26.1 ng/mL (>30)
== END 2023-05-14 11:54 | disposition home or self-care (01) ==
LOC: HO.LAB 11:53
PROVIDERS: PCP Nurse Practitioner Family; Visit Provider Nurse Practitioner Family
DX: R13.10 Dysphagia, unspecified (principal); R53.83 Other fatigue; M25.50 Pain in unspecified joint; E55.9 Vitamin D deficiency, unspecified
CPT/HCPCS: 36415; 80053; 82306; 84443; 85025

== ENCOUNTER 2023-07-09 11:18 | Outpatient (AMB) | payer OTHER, MEDICAID, SELFPAY ==
[2023-07-09 11:22] VITALS: BP 106/66; BMI 31.3
--- NOTE | 2023-07-09 11:22 | A.OFFVIS_ITS ---
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 Intake Note: has been feeling pulsating pains on lower left side and pain in her breast especially on her left Linux Consultant Required: Yes Linux Consultant Language: Citizen Of [place] Information Interpreted: non-clinical & clinical Broth Mixer: Broth Mixer Present (Aidyn) Allergies No Known Allergies [No Known Allergies*] Allergy (Verified 07/09/23 11:26) Medication List - Last Reconciled 07/09/23 by Lanie Woo CNM acetaminophen (Tylenol Extra Strength) 500 mg PO Q6H PRN uqxklygxmf-tcueuyphbxvvj-fyzm 50-300-40 mg (Fioricet) 1 cap PO Q4-6H PRN cetirizine (Zyrtec) 10 mg PO DAILY 30 days cholecalciferol (vitamin D3) 25 mcg PO DAILY 90 days fluticasone propionate 50 mcg/actuation (Flonase Allergy Relief) 2 sprays int ranasal DAILY pyridoxine (vitamin B6) mg PO Is last menstrual period known: Yes Last menstrual period: 06/22/23 Post menopausal: No HPI 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 She has no worries about STDs. She complains of 2 things 1 she has pain that is intermittent on her left side. She cannot notice a pattern or has not noticed 1 so far but she has not tracked it for this as such yet either. She also complains of pain predominantly in her in left breast but sometimes a little bit also in her right. She says the pain in the left breast is more noticeable because it pulses and she has been bothered by it since October it comes and it goes and she has not noticed a pattern to this either. She says she drinks 2 cups of caffeinated beverages a day. It is not think she has gained a lot of weight. She has a history that is significant most recently for periods of amenorrhea for which she was prescribed Provera to take cyclically and she was taking it but then she started getting her periods on their own is a couple of months ago so she stopped taking the Provera to bring her. On she has been getting it every month for 7 days and it has been feeling normal to her. Additionally her history is significant for a history of 3 Caesarean sections 1 miscarriage and 1 ectopic the ectopic but though notably was after having had her tubes tied. So in August 2021, when she presented with symptoms of a ruptured ectopic , she had bilateral salpingectomy as well during that surgery per Dr. Herman. [facility] Medical History (Updated 07/09/23 @ 12:15 by Lanie Woo CNM) Sterilization Supervision of other normal , antepartum Surgical History (Updated 07/09/23 @ 12:10 by Lanie Woo CNM) H/O bilateral salpingectomy H/O tubal ligation Hx of myomectomy History of hysteroscopy Hx of section Family History Family/Other History of breast cancer in female Father Hypertension History of prostate cancer Mother Hypertension Hx of diabetes mellitus Hx of cancer of lung Asthma Sister Hypertension Hx of thyroid disease Maternal Grandfather Hypertension Hx of cancer of lung Maternal Grandmother Hypertension Hx of cardiovascular disorder Paternal Grandfather Hypertension Paternal Grandmother Hypertension Other Mental health disorder Social History Housing: House Alcohol intake: never Patient Tobacco Use Status: Never used Tobacco e-Cigarette/Vaping Use: Never Used Second Hand Smoke Exposure: No service: No Current occupational status: unemployed Current occupational exposures/hazards: No Sexual orientation: Straight/Heterosexual Gender identity: Female Cognitive needs: No Hearing needs: No Vision needs: Yes Female Reproductive History Menstrual Age of Menarche: 12 Duration of menses: 6-7 days Date of last menstrual period: 06/22/23 control method: other (tubal ligation) Total pregnancies: 5 Full term: 3 Number of Living Children: 3 Ab spontaneous: 1 Ectopics: 1 Date of last pap smear: 02/27/22 (negative) History of abnormal pap smear: No Physical Exam Vital Signs: Last Vital Signs BP 106/66 07/09/23 11:22 BMI result Body Mass Index 31.3 Const General: healthy appearing, comfortable, no acute distress, well developed and alert Nutritional Appearance: average body habitus Orientation/consciousness: patient oriented x3 Limitations: no limitations HEENT Head: Yes normocephalic Neck Neck: Yes normal visual inspection Chest Other: Bilaterally full nontender to palpation and no masses puckering or skin changes noted. Patient cannot localize the area where she feels pulsing and discomfort and it is random but she has been concerned about it since October will obtain diagnostic mammogram.. Chest palpation & inspection: normal inspection of the chest Breast/axilla inspection: normal inspection of the breasts and normal inspection of the axillae Breast/axilla palpation: normal palpation of the breasts and normal palpation of the axillae Resp Effort & Inspection: normal respiratory effort GI Inspection: Yes normal to inspection, No Abdominal wall edema and No distended Palpation (GI): Soft to palpation and nontender Other: External vulva within normal limits vagina pink moist with normal appearing whi sara discharge cervix is nulliparous long close thick mobile nontender adnexa nontender not enlarged uterus anteverted nontender mobile. There is scar tissue palpable in left side and across laparoscopic scar it is just more prominent on the left side abdominally. Good tone with Kegel General: Yes bladder normal to palpation External Female Exam: normal external appearance and normal appearance of the urethra Speculum Exam - Vagina: normal appearance of the vagina, normal palpation and normal vaginal discharge Speculum Exam - Cervix: normal appearance of the cervix, normal palpation and nontender Bimanual exam- vagina & uterus: normal bimanual exam, normal palpation, uterine size normal, bladder normal to palpation, consistency normal, normal palpation, uterine mobility normal, uterine shape normal, No Cervical tenderness present, non-tender and no cervical motion tenderness Bimanual Exam- Adnexa, other: normal adnexae, no masses, normal and No adnexal tenderness Neuro General: patient oriented x3 Assessment & Plan Assessment & Plan (1) Abdominal pain: Code(s): R10.9 - Unspecified abdominal pain Qualifiers: Abdominal location: left lower quadrant Qualified Code(s): R10.32 - Left lower quadrant pain (2) Breast pain: Comment: Pulsating mostly on left , Instructed patient on keeping track of her breast symptoms, and relating it to her menstrual cycle. Patient is concerned, will order left mammogram Code(s): N64.4 - Mastodynia (3) Well woman exam: Code(s): Z01.419 - Encounter for gynecological examination (general) (routine) without abnormal findings (4) Vaginal itching: Comment: Exam appears completely normal today, await testing results... Code(s): N89.8 - Other specified noninflammatory disorders of vagina Plan -----Discussed in this visit the following: healthy balanced diet, regular and consistent exercise, getting recommended health screens, doing the best she can for her particular health concerns, kegel exercises, pap smear screening and followup recommendations, mammography screening and SBE, normal changes in cycles in her life stage--- . Discussed her breast pain symptoms and I recommend that she start keeping track on her calendar where she keeps track of her periods and see if she can start to notice a pattern and see if it is more premenstrual that she has her breast discomfort. She was still concerned because she has been feeling odd sensations in her left breast especially pulsations since about October so plan made to have a diagnostic mammogram of the left breast I did discuss that it is radiation. But she wishes to make sure everything is okay Discussed her symptoms of discomfort on her left side that is where she had the ruptured ectopic. She also has had 3 Caesarean sections and the possibility could also be that she is experiencing some cyclic discomfort related to ovulation or post ovulatory cyst formation. Discussed all of these possibilities and I recommend that she also keep track for 3-6 months of these pain and related in her menstrual calendar so she can see if there is a correlation. If there is a correlation there is probably nothing to worry about the most likely culprit however is that it may be just related to scar tissue as she has had multiple surgeries and she also had a post op wound infection after the last 1 as well for which she was treated with Augmentin 875. She has never had an abnormal Pap smear and she is not due for 1 this year. Her discharge appeared completely within normal limits so will await testing results to see if there is any thing to treat. No worries about other STIs and declined blood work. RTC 1 year. Orders: Orders Bacterial Vaginosis Panel Today Z01.419 - Encounter for gynecological examination (general) (routine) without abnormal findings MM tomosynthesis diagnostic LT Today N64.4 - Mastodynia CT NG by PCR Today Z01.419 - Encounter for gynecological examination (general) (routine) without abnormal findings Coding Level of Care Code Est Pt Prev Care [id number]) Diagnoses Abdominal pain R10.32 Abdominal location: left lower quadrant Breast pain N64.4 Well woman exam Z01.419 Vaginal itching N89.8
== END 2023-07-09 12:02 | disposition home or self-care (01) ==
PROVIDERS: Visit Provider Advanced Practice Midwife
DX: Z01.419 Encounter for gynecological examination (general) (routine) without abnormal findings (principal); R10.32 Left lower quadrant pain; N64.4 Mastodynia; N89.8 Other specified noninflammatory disorders of vagina
CPT/HCPCS: 99395

== ENCOUNTER 2023-07-09 11:18 | Outpatient (REF) | payer OTHER, MEDICAID, SELFPAY ==
[2023-07-10 09:53] LABS: CT PCR NOT DETECTED (Not Detect.); NG PCR NOT DETECTED (Not Detect.)
[2023-07-10 10:21] LABS: BV Int Neg Control Negative (Negative); BV Int Pos Control Positive (Positive)
== END 2023-07-09 11:19 | disposition home or self-care (01) ==
LOC: HO.LNP 11:18
PROVIDERS: Visit Provider Advanced Practice Midwife
DX: Z01.419 Encounter for gynecological examination (general) (routine) without abnormal findings (principal); R10.32 Left lower quadrant pain; N64.4 Mastodynia; N89.8 Other specified noninflammatory disorders of vagina; Z79.899 Other long term (current) drug therapy
CPT/HCPCS: 0353U; 87480; 87510; 87660

== ENCOUNTER 2023-08-01 13:56 | Outpatient (REF) | payer OTHER, MEDICAID, SELFPAY ==
--- NOTE | ~2023-08-01 | US_ITS ---
EXAMINATION: US DIAGNOSTIC ULTRASOUND BREAST, LEFT CLINICAL INFORMATION: 27-year-old patient complaining of left breast pain, pulsating random pains since October, spanning 2:00 to 4:00 left breast. COMPARISON: None available. TECHNIQUE: Ultrasound of the left breast is performed with real-time greenberg scale imaging and color Doppler. Attention was given to the 2:00 to 4:00 left breast region in the area of pain as directed by the patient. FINDINGS: There is no focal suspicious finding. There is no solid mass, architectural abnormality, duct ectasia, or edema in the soft tissue planes. There is no cystic abnormality. No ultrasonographic abnormality is evident within the 2:00 to 4:00 axis of the left breast to explain breast pain. US/US breast LT limited mamm only IMPRESSION: No ultrasonographic correlate to the complaint of breast pain 2:00 to 4:00 left breast. Recommend clinical management. Otherwise, recommend patient begin screening mammography at age 40. Results discussed with the patient by the technologist. ASSESSMENT: BI-RADS 1: Negative RECOMMENDATION: 1. Patient should be managed based on the clinical impression. 2. Otherwise, routine annual screening mammography beginning at age 40. This patient's information was entered into a reminder system with a target due date for their next mammogram.
== END 2023-08-01 13:57 | disposition home or self-care (01) ==
LOC: HO.MAMMO 13:56
PROVIDERS: PCP Advanced Practice Midwife; Visit Provider Advanced Practice Midwife
DX: N64.4 Mastodynia (principal)
CPT/HCPCS: 76642

== ENCOUNTER → 2023-08-01 14:00 | Outpatient (BNV) | payer OTHER, MEDICAID, SELFPAY | PROVIDERS: PCP Advanced Practice Midwife; Visit Provider Radiology Diagnostic Radiology | DX: N64.4 Mastodynia (principal) | CPT/HCPCS: 76642 ==

== ENCOUNTER 2023-08-09 10:53 | Outpatient (AMB) | payer OTHER, MEDICAID, SELFPAY ==
[2023-08-09 10:55] VITALS: BP 110/66; BMI 29.8
--- NOTE | 2023-08-09 10:55 | A.OFFVIS_ITS ---
Intake Vital Signs 08/09/23 10:55 Height 5 ft 2 in Weight 163 lb BMI 29.8 BP 110/66 Intake Visit Reasons: vaginal itch/burning Intake Note: feeling burning feeling and itching inside her vagina Copyright Expert Required: Yes Copyright Expert Language: English Information Interpreted: non-clinical & clinical Rotary Swaging Machine Operator: Rotary Swaging Machine Operator Present (Christiano) Allergies No Known Allergies [No Known Allergies*] Allergy (Verified 08/09/23 10:59) Medication List - Last Reconciled 08/09/23 by Lanie Woo CNM acetaminophen (Tylenol Extra Strength) 500 mg PO Q6H PRN qpnygcsoow-xhzngklrqbdmq-etov 50-300-40 mg (Fioricet) 1 cap PO Q4-6H PRN cetirizine (Zyrtec) 10 mg PO DAILY 30 days cholecalciferol (vitamin D3) 25 mcg PO DAILY 90 days fluticasone propionate 50 mcg/actuation (Flonase Allergy Relief) 2 sprays intranasal DAILY pyridoxine (vitamin B6) mg PO Is last menstrual period known: Yes Last menstrual period: 07/18/23 Post menopausal: No HPI vaginal itch/burning HPI Details Patient is here today to get checked for vaginal itching and burning. She had a normal exam when she came for similar complaint in June and her exam was normal then and testing showed Gardnerella and Bhumi so per protocol she was offered treatment for both and the prescription that was sent was for Diflucan 1 tablet and Metrogel per protocol. She says she use them and she still has the exact same symptoms her last menstrual period was July 18 and the burning restarted again after her. She uses pads for her periods and she is not interested in trying tampons. She believes that her underwear is cotton. Education done about reading labels to be sure. She uses Persian Spring soap and palmalive soap [facility] Medical History (Updated 08/09/23 @ 11:24 by Lanie Woo CNM) Sterilization Supervision of other normal , antepartum Surgical History (Updated 07/09/23 @ 12:10 by Lanie Woo CNM) H/O bilateral salpingectomy H/O tubal ligation Hx of myomectomy History of hysteroscopy Hx of section Family History Family/Other History of breast cancer in female Father Hypertension History of prostate cancer Mother Hypertension Hx of diabetes mellitus Hx of cancer of lung Asthma Sister Hypertension Hx of thyroid disease Maternal Grandfather Hypertension Hx of cancer of lung Maternal Grandmother Hypertension Hx of cardiovascular disorder Paternal Grandfather Hypertension Paternal Grandmother Hypertension Other Mental health disorder Social History Housing: House Alcohol intake: never Patient Tobacco Use Status: Never used Tobacco e-Cigarette/Vaping Use: Never Used Second Hand Smoke Exposure: No service: No Current occupational status: unemployed Current occupational exposures/hazards: No Sexual orientation: Straight/Heterosexual Gender identity: Female Cognitive needs: No Hearing needs: No Vision needs: Yes Female Reproductive History Menstrual Age of Menarche: 12 Date of last menstrual period: 07/18/23 control method: permanent sterilization Date of last pap smear: 02/27/22 (negative) Physical Exam Vital Signs: Last Vital Signs BP 110/66 08/09/23 10:55 BMI result Body Mass Index 29.8 Other: External exam completely within normal limits no redness no changes in either mucosa or discharge that would be indicative of infection at this time. External Female Exam: normal external appearance and normal appearance of the urethra Speculum Exam - Vagina: normal appearance of the vagina and normal vaginal discharge Speculum Exam - Cervix: normal appearance of the cervix and Cervical os closed Results Reviewed Results Reviewed: Gynecologic Cytology [id number] Name: Carol Huertas Age/Sex: 26/F Attending: Arun Herman MD : 1995 Submitted by: Arun Herman MD Copies to: Madyson Conde [employer] ROAST[employer] HELPER MR #: [id number] Status: DEP REF Collected: 02/24/22 Location: .LAB Received: 02/27/22 Interpretation Satisfactory for evaluation. Negative for intraepithelial lesion or malignancy. Clinical Information LMP:01/2022 Previous PAP test:2018,WNL Material Received ThinPrep-Cervical Copies To Conde,Madyson [employer] [address] [place], [place] [id number] Arun Herman MD [address] [place] [address] [phone] Electronically Signed By: MARY ANNE Mays (ASC) 02/28/22 0927 The Pap Test is a screening procedure with the inherent possibility of both false negative and false positive results. Results should be interpreted in the context of historic and current clinical findings. Reliability of the Pap Test is enhanced by performing the test on a regular repetitive basis. Patient: Carol Huertas Age/Sex: 26/F MR#: [id number] Page 1 of 1 Name: Carol Huertas Age/Sex: 25/F Attending: Trudi Desouza DO : 1995 Submitted by: Arun Herman MD Copies to: Trudi Desouza DO MR #: [id number] Status: [facility] Collected: 09/12/21 Location: [facility] Received: 09/13/21 Diagnosis A. Fallopian tube and soft tissue, left, salpingectomy: Immature chorionic villi, decidua, organizing hemorrhage and benign fallopian tube consistent with ectopic gestation. B. Fallopian tube right, salpingectomy: Fallopian tube within normal limits. Clinical History Pre-Op Dx: Ectopic Post-Op Dx: Left ectopic with bilateral salpingectomy Microscopic Description A, B. Microscopic sections reviewed. Material Received A. Left ectopic with partial tube B. Right tube Gross Description Received in two parts. Part A: Received in formalin labeled Left ectopic with partial tube is a 4.5 cm. in length and up to 0.6 cm. in diameter, fimbriated portion of campbell, pink-purple fallopian tube, which is sectioned to reveal a central pinpoint - stellate lumen, measuring up to 0.25 cm. in diameter. There is no evidence of rupture or intraluminal tissue. Also received is a 2.0 x 1.2 x 0.6 - 1.0 cm. portion of shaggy, congested and hemorrhagic, cauterized, campbell tissue, which is sectioned to reveal an additional segment of fallopian tube with a central, pinpoint, stellate and focally fibrotic lumen and attached spongy, soft campbell tissue. The two portions of fallopian tube are entirely submitted in cassettes A1 - A2 and A3, respectively. Also received is a 3.0 x 3.0 x 0.4 - 0.6 cm. aggregate of predominantly red-maroon blood with multiple fragments of spongy, soft, campbell tissue, suspicious for papilliferous tissue. The additional papilliferous tissue and clot are submitted in cassettes A4 - A6. Part B: Received in formalin labeled Right tube are two portions of fimbri ated, focally dilated, campbell, pink-purple fallopian tube, measuring 3.0 and 3.8 cm. in length and ranging from 0.3 to 0.8 cm. in diameter. The shorter segment is dilated, smooth and shaggy, campbell-pink and is sectioned to reveal a central pinpoint, focally stellate and fibrotic campbell lumen. Sectioning the longer segment reveals a central pinpoint - stellate lumen, measuring up to 0.25 cm. in diameter. Metal Buffer sections are submitted in cassettes B1 - B3. Patient: Carol Huertas Age/Sex: 25/F MR#: [id number] Page 1 of 2 Assessment & Plan Assessment & Plan (1) Vaginal itching: Comment: Exam appears completely normal today, await testing results... 08/09/2023 exam again appears completely within normal limits today will await the results but in the meantime I am offering her Monistat cream. Education done about Gardnerella and Bhumi being part of the normal saundra and the necessity of avoiding harsh soaps such as Persian Spring and Palmalive as well as cotton underwear and no underwear and limiting pad use and considering tampons. Code(s): N89.8 - Other specified noninflammatory disorders of vagina (2) H/O bilateral salpingectomy: Comment: 09/11 Left Ectopic , s/p tubal ligation Code(s): Z90.79 - Acquired absence of other genital organ(s) Plan Please see above notes. Patient's exam is again within normal limits. Education done about avoiding non cotton underwear avoiding pad use and avoiding harsh soaps. Will treat her symptoms today with Monistat cream which is mild and not at all harmful. I really recommend that she avoid all pad use and allow air to her vulva above all. Await the testing but I told her to expect that Gardnerella and Bhumi may show up because they are part of the normal floor of the vagina anyway. Medications: New miconazole nitrate 2% (Miconazole-7) 1 appful vaginal BEDTIME 7 days 45 grams 1RF Coding Level of Care Code Est Pt Level 3 (62294) Diagnoses Vaginal itching N89.8 H/O bilateral salpingectomy Z90.79
== END 2023-08-09 12:25 | disposition home or self-care (01) ==
PROVIDERS: PCP Advanced Practice Midwife; Visit Provider Advanced Practice Midwife
DX: N89.8 Other specified noninflammatory disorders of vagina (principal); Z90.79 Acquired absence of other genital organ(s)
CPT/HCPCS: 99213

== ENCOUNTER 2023-08-09 10:53 | Outpatient (REF) | payer OTHER, MEDICAID, SELFPAY ==
[2023-08-09 16:50] LABS: CT PCR NOT DETECTED (Not Detect.); NG PCR NOT DETECTED (Not Detect.)
[2023-08-10 11:13] LABS: BV Int Neg Control Negative (Negative); BV Int Pos Control Positive (Positive)
== END 2023-08-09 10:54 | disposition home or self-care (01) ==
LOC: HO.LNP 10:53
PROVIDERS: PCP Advanced Practice Midwife; Visit Provider Advanced Practice Midwife
DX: N89.8 Other specified noninflammatory disorders of vagina (principal); Z90.79 Acquired absence of other genital organ(s)
CPT/HCPCS: 0353U; 87480; 87510; 87660

== ENCOUNTER 2023-11-30 15:15 | Outpatient (AMB) | payer OTHER, SELFPAY ==
[2023-11-30 15:18] VITALS: BP 106/70; PULSE 76; RESP 13; TEMP 36.3; O2SAT 99; BMI 28.7
--- NOTE | 2023-11-30 15:18 | A.OFFPC_ITS ---
Vital Signs 11/30/23 15:18 Height 5 ft 2 in Weight 157 lb BMI 28.7 BP 106/70 Blood Pressure Location Rt brachial Position Sitting Respiration 13 Pulse 76 Pulse Source Pulse Oximeter Temp 97.3 F Temp Source Temporal Artery Scan Pulse Oximetry (%) 99 Oxygen Delivery Method Room Air Intake Visit Reasons: Headaches Pvc Loader Required: Yes Pvc Loader Name: Osorio([id number]) Accompanied by: Daughter Allergies No Known Allergies [No Known Allergies*] Allergy (Verified 11/30/23 15:31) Medication List - Last Reconciled 11/30/23 by Philipp Blake CNP pmwcfojibx-xmuybwprfmqwe-icim 50-300-40 mg (Fioricet) 1 cap PO Q4-6H PRN cetirizine (Zyrtec) 10 mg PO DAILY 30 days cholecalciferol (vitamin D3) 25 mcg PO DAILY 90 days fluticasone propionate 50 mcg/actuation (Flonase Allergy Relief) 2 sprays intranasal DAILY pyridoxine (vitamin B6) mg PO Tobacco use date assessed: 11/30/23 Dental Screening Dental Screen Date: 11/30/23 Did you have a dental visit in the last 12 months?: Yes Did you have a dental problem in the last 6 months where you did not have access to dental care?: No Was dental information given to patient?: Patient has dentist HPI HPI Comments History of Present Illness Details 28-year-old Pashto-speaking female [facility] with complaints of persistent headaches for the past 1 week. The pain is localized to the right side of her head close to her ear. She describes the pain as pressure. She also reports weakness, dizziness, and blurry vision for 1 week. Her symptoms have progressively gotten worse. She has been taking Tylenol and Ibuprofen without improvement. No nausea, vomiting, photophobia, phonophobia. She notes h/o migraines. Her former PCP is NORA who is no longer with the practice. Her last office visit was in April 2023 [facility] Medical History Sterilization Supervision of other normal , antepartum Surgical History H/O bilateral salpingectomy H/O tubal ligation Hx of myomectomy History of hysteroscopy Hx of section Family History Family/Other History of breast cancer in female Father Hypertension History of prostate cancer Mother Hypertension Hx of diabetes mellitus Hx of cancer of lung Asthma Sister Hypertension Hx of thyroid disease Maternal Grandfather Hypertension Hx of cancer of lung Maternal Grandmother Hypertension Hx of cardiovascular disorder Paternal Grandfather Hypertension Paternal Grandmother Hypertension Other Mental health disorder Social History Housing: House Alcohol intake: never Patient Tobacco Use Status: Never used Tobacco e-Cigarette/Vaping Use: Never Used Second Hand Smoke Exposure: No service: No Current occupational status: unemployed Current occupational exposures/hazards: No Sexual orientation: Straight/Heterosexual Gender identity: Female Cognitive needs: No Hearing needs: No Vision needs: No Female Reproductive History Menstrual Age of Menarche: 12 Questionnaire Thrive Questionnaire Date Thrive assessed: 01/30/23 STEVEN-7 AMB Questionnaire STEVEN-7 Date STEVEN - 7 assessed: 01/30/23 Source: Developed by Drs. Juarez Kuhn, Helena Ferreira, Rogerio Taylor and colleagues, with an educational jessica from [email or web address]. Review of Systems Const Details: Const Denies chills, Denies fatigue, Denies fever(s), Reports headache(s) and Reports weakness ENT Reports dizziness and Reports headache(s) Card Denies chest pain, Denies lightheadedness, Denies dyspnea and Denies other (Palpitations) Resp Denies cough, Denies dyspnea, Denies wheezing and Denies other ( shortness of breath) GI Denies abdominal pain, Denies melena, Denies hematochezia, Denies change in bowel habits, Denies dyspepsia and Denies nausea Denies hematuria and Denies dysuria Musc Denies abnormal gait, Denies myalgias, Denies arthralgias, Denies numbness and Denies tingling Skin/Breast Denies rash, Denies unusual bruising and Denies wounds Neuro Denies abnormal gait, Reports dizziness, Denies headache(s), Denies memory loss, Denies numbness, Denies Sensory deficit (Neuro), Denies tingling and Denies weakness Psych Denies anxiety, Denies depression, Denies memory loss Endo Denies cold intolerance, Denies fatigue, Denies heat intolerance, Denies polydipsia and Denies polyuria Aller/Immun Denies wheezing Physical exam (Primary Care) Vital Signs: Last Vital Signs Temp 97.3 F 11/30/23 15:18 Pulse 76 11/30/23 15:18 Resp 13 11/30/23 15:18 BP 106/70 11/30/23 15:18 Pulse Ox 99 11/30/23 15:18 Oxygen Delivery Method Room Air 11/30/23 15:18 BMI result Body Mass Index 28.7 Tobacco/Smoking Status: Tobacco use Status Tobacco use date assessed 11/30/23 11/30/23 15:29 Patient Tobacco Use Status Never used Tobacco 11/30/23 15:29 e-Cigarette/Vaping Use Never Used 11/30/23 15:29 Thrive Assessment: Date of Thrive Assessment Date Thrive assessed 01/30/23 11/30/23 15:29 Const Other: General: no acute distress and well developed Nutritional Appearance: well nourished Orientation/consciousness: patient oriented x3 HENMT Head: Yes normocephalic and Yes atraumatic Eyes General: appearance normal, both eyes and all related structures Pupils: Equal, round and reactive pupils present EOM: EOMs intact bilaterally Resp Effort & Inspection: normal respiratory effort Auscultation: clear to auscultation bilaterally Cardio Rate: regular rate Rhythm: regular rhythm Heart sounds: S1 normal heart sound present, S2 normal heart sound present, no gallops, no murmurs and no rubs GI Palpation (GI): No Abdominal aortic bruit present, Soft to palpation, nontender, No hepatosplenomegaly present and No Rebound tenderness present Auscultation: normal bowel sounds General: Yes no CVA tenderness Back/Spine/Pelvis Back: no CVA tenderness Cervical Spine: cervical ROM normal and No Cervical spine tenderness Thoracic/Lumbar Spine: thoraco-lumbar ROM normal, No pain with thoraco-lumbar ROM, No thoracic spinal tenderness and No lumbar spinal tenderness Extrem General: Yes normal to inspection, No edema and No calf tenderness Skin General: warm and dry. Normal skin color. Normal skin turgor Neuro General: patient oriented x3, gait normal and no focal neuro deficit Cranial nerves: Yes Equal, round and reactive pupils present Cognition (Neuro): normal cognition Gait exam (Neuro): Normal gait present Sensory Exam: No Sensory deficit (Neuro) Psych Appearance: grossly normal Affect: normal affect Attitude: cooperative Thought process: Normal thought process present Assessment and Plan Assessment & Plan (1) Headache: Code(s): R51.9 - Headache, unspecified Plan: Persistent headache, dizziness, weakness, and blurry vision x1 week History of migraine Likely migraines Sumatriptan ordered. Take as prescribed Labs ordered to determine cause of dizziness and weakness. Advised to get fasting blood work done before next visit Advised to schedule a transfer of care appointment with any provider in this facility Follow-up with worsening or new symptoms Verbalized understanding and agreed with treatment plan (2) Dizziness: Code(s): R42 - Dizziness and giddiness Plan: As above (3) Weakness: Code(s): R53.1 - Weakness Plan: As above Orders: Orders Comprehensive [place]. Panel Fast Today R42 - Dizziness and giddiness, R51.9 - Headache, unspecified, R53.1 - Weakness TSH reflex Free T4 Today R53.1 - Weakness Vitamin D 25-OH Total Today R42 - Dizziness and giddiness Complete Blood Count Auto Diff Today R42 - Dizziness and giddiness, R51.9 - Headache, unspecified, R53.1 - Weakness UA CC w/rflx Micro + Cult Today R53.1 - Weakness Medications: New sumatriptan succinate take 1 tab at onset of headache; if no relief may repeat 1 tab after at least 2 hrs; max = 4 tabs/24 hr PO 30 tabs 1RF Discontinued fbgzswkzzf-aidtqkkdhdbxx-utfh 50-300-40 mg (Fioricet) Discontinued Reason: Patient no longer taking 1 cap PO Q4-6H PRN 14 caps 0RF headache cholecalciferol (vitamin D3) Discontinued Reason: Patient no longer taking 25 mcg PO DAILY 90 days 90 tabs 1RF Coding Level of Care Code New Pt Level 4 (27144) Diagnoses Headache R51.9 Dizziness R42 Weakness R53.1
== END 2023-11-30 16:14 | disposition home or self-care (01) ==
PROVIDERS: Visit Provider Nurse Practitioner Family
DX: R51.9 Headache, unspecified (principal); R42 Dizziness and giddiness; R53.1 Weakness
CPT/HCPCS: 99214

== ENCOUNTER 2023-12-17 09:14 | Outpatient (REF) | payer OTHER, SELFPAY ==
[2023-12-17 09:30] LABS: MANUAL DIFF FLAG NO
[2023-12-17 09:50] LABS: Basophils Percent Auto 0.2 % (0-2); Eosinophils Absolute Auto 0.1 X10*3/uL (0.0-0.4); Eosinophils Percent Auto 1.4 % (0-4); Hemoglobin 14.4 g/dl (12.0-16.0); Imm Gran Abs Auto 0.02 X10*3/uL (0.00-0.03); Imm Gran Pct Auto 0.2 % (0.0-0.4); Lymphocytes Absolute Auto 1.9 X10*3/uL (1.2-4.9); Lymphocytes Percent Auto 19.9 % (20-40); Mean Corpuscular HGB Conc 32.7 g/dl (31.0-35.0); Mean Corpuscular Hemoglobin 26.9 pg (27.0-33.0); Mean Corpuscular Volume 82.1 fL (80.0-98.0); Mean Platelet Volume 10.8 fL (9.4-12.3); Monocytes Absolute Auto 0.4 X10*3/uL (0.1-1.2); Monocytes Percent Auto 4.1 % (2-11); Neutrophils Percent Auto 74.2 % (45-73); Platelet Count 316 X10*3/uL (160-400); Red Blood Count 5.36 X10*6/uL (4.20-5.50); Red Cell Distribution Width 13.5 % (11.0-16.0); White Blood Count 9.4 X10*3/uL (4.8-10.8)
[2023-12-17 09:59] LABS: Appearance Urine Clear; Color Urine Yellow; Glucose Urine UA Negative (Negative); Leukocyte Esterase Urine Trace (Negative); Nitrite Urine Negative (Negative); Specific Gravity - Urine 1.025 (1.005-1.025); UMIC TRIGGER UACC YES; Urine Blood Negative (Negative); Urine Ketones Negative (Negative); Urine Protein Negative (Neg-Trace)
[2023-12-17 10:15] LABS: Bacteria Urine 1+ (None Seen); Hyaline Casts Urine 0-2 /LPF (0-2); RBC Urine 0-2 /HPF (0-2); WBC Urine 0-5 /HPF (0-5)
[2023-12-17 10:58] LABS: Alanine Aminotransferase 14 U/L (0-31); Albumin Level 4.8 g/dL (3.5-5.0); Alkaline Phosphatase 73 U/L (39-117); Anion Gap 11 (12-20); Aspartate Amino Transferase 18 U/L (5-31); Bilirubin Total 0.4 mg/dL (0.0-1.0); Blood Urea Nitrogen 15 mg/dL (9-16); Calcium 9.8 mg/dL (8.4-10.2); Carbon Dioxide 30 mmol/L (22-29); Chloride 103 mmol/L (96-108); Estimated Glomerular Filt Rate > 60; Glucose Fasting 91 mg/dL (60-99); Potassium 4.1 mmol/L (3.3-5.1); Sodium 140 mmol/L (135-145)
[2023-12-17 11:19] LABS: TSH reflex Free T4 1.74 uIU/mL (0.32-4.0); Vitamin D 25-OH Total 27.3 ng/mL (>30)
== END 2023-12-17 09:15 | disposition home or self-care (01) ==
LOC: HO.LAB 09:14
PROVIDERS: PCP Nurse Practitioner Family; Visit Provider Nurse Practitioner Family
DX: R51.9 Headache, unspecified (principal); R42 Dizziness and giddiness; R53.1 Weakness
CPT/HCPCS: 36415; 80053; 81001; 81003; 82306; 84443; 85025

== ENCOUNTER 2023-12-28 16:43 | Outpatient (AMB) | payer OTHER, SELFPAY ==
[2023-12-28 16:48] VITALS: BP 100/64; PULSE 71; RESP 13; TEMP 36.3; O2SAT 99; BMI 29.1
--- NOTE | 2023-12-28 16:48 | MHC.PC.OV ---
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 ([id number]) Accompanied by: Self / Same As Patient Allergies No Known Allergies [No Known Allergies*] Allergy (Verified 12/28/23 17:09) Medication List - Last Reconciled 12/28/23 by Philipp Blake CNP cetirizine (Zyrtec) 10 mg PO DAILY 30 days cholecalciferol (vitamin D3) (Vitamin D3) 25 mcg PO DAILY spironolactone 50 mg PO BID sumatriptan succinate take 1 tab at onset of headache; if no relief may repeat 1 tab after at least 2 hrs; max = 4 tabs/24 hr PO tretinoin 0.025% 1 appl topical BEDTIME Tobacco use date assessed: 11/30/23 Dental Screening Dental Screen Date: 12/28/23 Did you have a dental visit in the last 12 months?: Yes Did you have a dental problem in the last 6 months where you did not have access to dental care?: No Was dental information given to patient?: Patient has dentist HPI HPI Comments History of Present Illness Details 28-year-old Latvian-speaking female presents for transfer of care Her former PCP is NORA who is no longer with the practice Her last physical exam was in January 2023. Her last blood work and urinalysis were in 12/17/2023 She has history of migraine, vitamin-D deficiency, and acne She is on Spironolactone 50mg BID, Vitamin D3 25mcg QD, sumatriptan, and tretinoin She notes that she if followed by [facility] and was prescribed Spironolactone for acne She admits to taking her medications as prescribed without adverse reactions She offers no complaints and denies acute symptoms at this time Interpretation by professional code enforcement officer via electronic tablet [facility] Medical History Sterilization Supervision of other normal , antepartum Surgical History H/O bilateral salpingectomy H/O tubal ligation Hx of myomectomy History of hysteroscopy Hx of section Family History Family/Other History of breast cancer in female Father Hypertension History of prostate cancer Mother Hypertension Hx of diabetes mellitus Hx of cancer of lung Asthma Sister Hypertension Hx of thyroid disease Maternal Grandfather Hypertension Hx of cancer of lung Maternal Grandmother Hypertension Hx of cardiovascular disorder Paternal Grandfather Hypertension Paternal Grandmother Hypertension Other Mental health disorder Social History Housing: House Alcohol intake: never Patient Tobacco Use Status: Never used Tobacco e-Cigarette/Vaping Use: Never Used Second Hand Smoke Exposure: No service: No Current occupational status: unemployed Current occupational exposures/hazards: No Sexual orientation: Straight/Heterosexual Gender identity: Female Cognitive needs: No Hearing needs: No Vision needs: No Female Reproductive History Menstrual Age of Menarche: 12 Questionnaire PHQ-9 Over the last 2 weeks, how often have you been bothered by any of the following problems? 1. Little interest or pleasure in doing things: several days 2. Feeling down, depressed, or hopeless: several days 3. Trouble falling or staying asleep, or sleeping too much: not at all 4. Feeling tired or having little energy: several days 5. Poor appetite or overeating: nearly every day 6. Feeling bad about yourself - or that you are a failure or have let yourself or your family down: several days 7. Trouble concentrating on things, such as reading the newspaper or watching television: not at all 8. Moving or speaking so slowly that other people could have noticed. Or the opposite - being so fidgety or restless that you have been moving around a lot more than usual: not at all 9. Thoughts that you would be better off or of hurting yourself in some way: several days Total score: 8 Depression Screening Interpretation: Positive Depression Screening Done: Yes 56329 - PHQ-9 Billing: Yes Source: Developed by Drs. Juarez Kuhn, Helena Ferreira, Rogerio Taylor and colleagues, with an educational jessica from [employer]. Thrive Questionnaire Date Thrive assessed: 12/28/23 I am a: Patient What is your living situation today?: I have a steady place to live Within the past 12 months, did the food you bought not last and you didn't have the money to get more?: Never true Within the past 12 months, did you worry whether your food would run out before you got money to buy more?: Never true Do you have trouble paying for medicines?: No Do you have trouble getting transportation to medical appointments?: No Do you have trouble paying your heating and electricity bill?: No Do you have trouble taking care of your child, family member or friend?: No Do you have trouble with day-to-day activities such as bathing, preparing meals, shopping, managing finances, etc.?: No Are you currently unemployed and looking for a job?: No Are you interested in more education?: No Please select the resources that you would like help with: None Currently or been in a relationship where the following occur: no concerns reported THRIVE Score: 0 AUDIT C Alcohol Use Questionnaire (AUDIT-C) 1. How often do you have a drink containing alcohol?: Never 3. How often do you have six or more drinks on one occasion?: Never Total Score: 0 STEVEN-7 AMB Questionnaire STEVEN-7 Date STEVEN - 7 assessed: 12/28/23 Feeling nervous, anxious, or on edge: 3 = Nearly every day Not being able to stop or control worryin = Not at all Worrying too much about different things: 0 = Not at all Trouble relaxin = Several days Being so restless that it is hard to sit still: 1 = Several days Becoming easily annoyed or irritable: 1 = Several days Feeling afraid as if something awful might happen: 1 = Several days Total STEVEN-7 score (0-4 normal; 5-9 mild; 10-14 moderate; 15-21 severe): 7 Source: Developed by Drs. Juarez Kuhn, Helena Ferreira, Rogerio Taylor and colleagues, with an educational jessica from [employer]. Review of Systems Const Details: Const Denies chills, Denies fatigue, Denies fever(s), Denies headache(s) and Denies weakness ENT Denies dizziness and Denies headache(s) Card Denies chest pain, Denies lightheadedness, Denies dyspnea and Denies other (Palpitations) Resp Denies cough, Denies dyspnea, Denies wheezing and Denies other ( shortness of breath) GI Denies abdominal pain, Denies melena, Denies hematochezia, Denies change in bowel habits, Denies dyspepsia and Denies nausea Denies hematuria and Denies dysuria Musc Denies abnormal gait, Denies myalgias, Denies arthralgias, Denies numbness and Denies tingling Skin/Breast Denies rash, Denies unusual bruising and Denies wounds Neuro Denies abnormal gait, Denies dizziness, Denies headache(s), Denies memory loss, Denies numbness, Denies Sensory deficit (Neuro), Denies tingling and Denies weakness Psych Denies anxiety, Denies depression, Denies memory loss Endo Denies cold intolerance, Denies fatigue, Denies heat intolerance, Denies polydipsia and Denies polyuria Aller/Immun Denies wheezing Physical exam (Primary Care) Vital Signs: Last Vital Signs Temp 97.4 F 12/28/23 16:48 Pulse 71 12/28/23 16:48 Resp 13 12/28/23 16:48 BP 100/64 12/28/23 16:48 Pulse Ox 99 12/28/23 16:48 Oxygen Delivery Method Room Air 12/28/23 16:48 BMI result Body Mass Index 29.1 Tobacco/Smoking Status: Tobacco use Status Tobacco use date assessed 11/30/23 12/28/23 16:58 Patient Tobacco Use Status Never used Tobacco 12/28/23 16:58 e-Cigarette/Vaping Use Never Used 12/28/23 16:58 PHQ-9: PHQ-9 Score PHQ-9: Total score 8 12/28/23 17:03 Depression Screening Interpretation: Positive Thrive Assessment: Date of Thrive Assessment Date Thrive assessed 12/28/23 12/28/23 16:58 Currently or been in a relationship where the following occur: no concerns reported Const Other: General: no acute distress and well developed Nutritional Appearance: well nourished Orientation/consciousness: patient oriented x3 HENMT Head: Yes normocephalic and Yes atraumatic Eyes General: appearance normal, both eyes and all related structures Pupils: Equal, round and reactive pupils present EOM: EOMs intact bilaterally Resp Effort & Inspection: normal respiratory effort Auscultation: clear to auscultation bilaterally Cardio Rate: regular rate Rhythm: regular rhythm Heart sounds: S1 normal heart sound present, S2 normal heart sound present, no gallops, no murmurs and no rubs GI Palpation (GI): No Abdominal aortic bruit present, Soft to palpation, nontender, No hepatosplenomegaly present and No Rebound tenderness present Auscultation: normal bowel sounds General: Yes no CVA tenderness Back/Spine/Pelvis Back: no CVA tenderness Cervical Spine: cervical ROM normal and No Cervical spine tenderness Thoracic/Lumbar Spine: thoraco-lumbar ROM normal, No pain with thoraco-lumbar ROM, No thoracic spinal tenderness and No lumbar spinal tenderness Extrem General: Yes normal to inspection, No edema and No calf tenderness Skin General: warm and dry. Normal skin color. Normal skin turgor Neuro General: patient oriented x3, gait normal and no focal neuro deficit Cranial nerves: Yes Equal, round and reactive pupils present Cognition (Neuro): normal cognition Gait exam (Neuro): Normal gait present Sensory Exam: No Sensory deficit (Neuro) Psych Appearance: grossly normal Affect: normal affect Attitude: cooperative Thought process: Normal thought process present Assessment and Plan Assessment & Plan (1) Vitamin D deficiency: Code(s): E55.9 - Vitamin D deficiency, unspecified Plan: Recent labs reviewed with patient; unremarkable findings except for slightly low vitamin-D level 27.3 Advised to continue to take vitamin D3 25 mcg as prescribed Encouraged to get fasting blood work done before next visit for lipid panel; will also check vitamin-D level Follow-up in 1 month for an extended physical exam Return sooner with symptoms or concerns Verbalized understanding and agreed with the plan (2) Laboratory tests ordered as part of a complete physical exam (CPE): Code(s): Z00.00 - Encounter for general adult medical examination without abnormal findings Plan: Fasting labs ordered in preparation of a complete physical exam. Advised to fast for at least 10 hours before getting labs drawn. May drink water Verbalized understanding and agreed with treatment plan. Orders: Orders Lipid Panel Today Z00.00 - Encounter for general adult medical examination without abnormal findings Vitamin D 25-OH Total Today Z00.00 - Encounter for general adult medical examination without abnormal findings Coding Level of Care Code Est Pt Level 4 (68639) Diagnoses Vitamin D deficiency E55.9 Laboratory tests ordered as part of a complete physical exam (CPE) Z00.00
== END 2023-12-28 17:29 | disposition home or self-care (01) ==
PROVIDERS: Visit Provider Nurse Practitioner Family
DX: E55.9 Vitamin D deficiency, unspecified (principal); Z00.00 Encounter for general adult medical examination without abnormal findings
CPT/HCPCS: 99214

== ENCOUNTER 2024-04-27 20:46 | Emergency (ER) | payer OTHER, SELFPAY ==
--- NOTE | ~2024-04-27 | CT_ITS ---
EXAMINATION: CT ABDOMEN AND PELVIS WITH CONTRAST CLINICAL INFORMATION: Right upper quadrant pain, tenderness and diarrhea COMPARISON: Pelvic ultrasound 03/27/2022 TECHNIQUE: Multidetector volumetric images were obtained from the superior aspect of the liver through the pubic symphysis following administration 85 mL of Omnipaque 350 intravenous contrast. Sagittal and coronal reformatted images were obtained on the technologist's workstation. Oral contrast: No This CT examination was performed using dose optimization techniques as appropriate, variously including the following: *Automated exposure control *Adjustment of mA and/or kV according to patient size (this includes techniques or standardized protocols for targeted exams where dose is matched to indication/reason for exam; i.e. extremities or head) *Use of iterative reconstruction technique DLP: 507 mGy-cm FINDINGS: LUNG BASES: The visualized lung bases are unremarkable. LIVER, GALLBLADDER, AND BILIARY TREE: The liver is enlarged measuring 18.4 cm in cephalocaudad dimension. No focal hepatic lesion or biliary ductal dilatation is present. The gallbladder is contracted but otherwise unremarkable with no evidence of radiopaque gallstones, gallbladder wall thickening, or obvious pericholecystic inflammatory changes. PANCREAS: Unremarkable. SPLEEN: Unremarkable. ADRENAL GLANDS: Unremarkable. KIDNEYS AND URETERS: The kidneys are normal in size, shape, and attenuation. No hydronephrosis, hydroureter, or calculi seen. No perinephric stranding. BLADDER: Unremarkable. GASTROINTESTINAL TRACT: The small and large bowel are unremarkable. The appendix is unremarkable. ABDOMINAL WALL: No significant hernia is appreciated. LYMPH NODES: Normal. VASCULAR: Unremarkable. PELVIC VISCERA: A retroverted uterus is present with multiple fibroids seen, some mural, and some submucosal. A 1.6 cm cyst is present in the right ovary which needs no additional follow-up. Small amount of free pelvic fluid is seen. OSSEOUS STRUCTURES: Unremarkable. CT/CT abdomen pelvis w IV con IMPRESSION: 1. A cause for the patient's right upper quadrant pain, tenderness and diarrhea has not been found. 2. Incidental note made of mild hepatomegaly, uterine fibroids and small amount of free pelvic fluid. Fleischner guidelines were followed.
[2024-04-27 20:47] VITALS: BP 119/77; PULSE 71; RESP 18; TEMP 36.4; O2SAT 100; BMI 29.4
[2024-04-27 21:14] LABS: MANUAL DIFF FLAG NO
[2024-04-27 21:15] LABS: Basophils Percent Auto 0.4 % (0-2); Eosinophils Absolute Auto 0.2 X10*3/uL (0.0-0.4); Hematocrit 43.3 % (37.0-47.0); Hemoglobin 14.2 g/dl (12.0-16.0); Imm Gran Abs Auto 0.02 X10*3/uL (0.00-0.03); Imm Gran Pct Auto 0.2 % (0.0-0.4); Lymphocytes Absolute Auto 2.8 X10*3/uL (1.2-4.9); Lymphocytes Percent Auto 24.7 % (20-40); Mean Corpuscular HGB Conc 32.8 g/dl (31.0-35.0); Mean Corpuscular Hemoglobin 27.8 pg (27.0-33.0); Mean Corpuscular Volume 84.7 fL (80.0-98.0); Mean Platelet Volume 10.4 fL (9.4-12.3); Monocytes Absolute Auto 0.5 X10*3/uL (0.1-1.2); Monocytes Percent Auto 4.4 % (2-11); Neutrophils Absolute Auto 7.7 x10*3/uL (2.0-8.3); Neutrophils Percent Auto 68.3 % (45-73); Platelet Count 335 X10*3/uL (160-400); Red Blood Count 5.11 X10*6/uL (4.20-5.50); Red Cell Distribution Width 12.8 % (11.0-16.0); White Blood Count 11.3 X10*3/uL (4.8-10.8)
[2024-04-27 21:16] LABS: Appearance Urine Turbid; Color Urine Yellow; Glucose Urine UA Negative (Negative); Leukocyte Esterase Urine Small (1+) (Negative); Nitrite Urine Negative (Negative); Specific Gravity - Urine 1.015 (1.005-1.025); UMIC TRIGGER UACC YES; Urine Blood Negative (Negative); Urine Ketones Negative (Negative); Urine Protein Negative (Neg-Trace)
[2024-04-27 21:19] LABS: UPreg QC Valid YES; Urine Pregnancy NEGATIVE (NEGATIVE)
[2024-04-27 21:29] LABS: Alanine Aminotransferase 13 U/L (0-31); Albumin Level 4.6 g/dL (3.5-5.0); Alkaline Phosphatase 61 U/L (39-117); Anion Gap 12 (12-20); Aspartate Amino Transferase 16 U/L (5-31); Bilirubin Direct 0.1 mg/dL (0.0-0.5); Bilirubin Total 0.4 mg/dL (0.0-1.0); Blood Urea Nitrogen 12 mg/dL (9-16); Calcium 9.5 mg/dL (8.4-10.2); Carbon Dioxide 29 mmol/L (22-29); Chloride 105 mmol/L (96-108); Creatinine Clr Calc Pharmacy 90.1; Estimated Glomerular Filt Rate > 60; Glucose Random 96 mg/dL (60-115); Lipase 32 U/L (8-78); Potassium 4.1 mmol/L (3.3-5.1); Sodium 142 mmol/L (135-145); Total Protein 7.6 g/dL (6.5-8.0)
[2024-04-27 21:34] LABS: Bacteria Urine 1+ (None Seen); Hyaline Casts Urine 0-2 /LPF (0-2); RBC Urine 0-2 /HPF (0-2); UACC Culture Trigger YES; WBC Urine 0-5 /HPF (0-5)
--- NOTE | 2024-04-27 21:51 | ED.GENADULT ---
HPI - General Adult General Chief complaint: Abdominal Pain Stated complaint: diarrhea with blood? Time Seen by Provider: 04/27/24 21:51 History of Present Illness ED Provider: Shantelle FLORES narrative: The patient is a 28-year-old female who says that she thinks she normally has a history of chronic constipation but who over the last 3 weeks has had unusually soft and frequent stools and has had some blood in her stools. She also says that she has post ill upper abdominal pain. No definite fever. She has been fatigued recently. She thinks that she might have hemorrhoids. Related Data Home Medications ?Medication ?Instructions ?Recorded ?Confirmed cholecalciferol (vitamin D3) 25 25 mcg PO DAILY 12/28/23 12/28/23 mcg (1,000 unit) tablet (Vitamin D3) spironolactone 50 mg tablet 50 mg PO BID 12/28/23 12/28/23 tretinoin 0.025 % topical cream 1 appl topical BEDTIME 12/28/23 12/28/23 Previous Rx's ?Medication ?Instructions ?Recorded cetirizine 10 mg tablet (Zyrtec) 10 mg PO DAILY 30 days #30 tabs 05/07/23 sumatriptan succinate 25 mg tablet See Rx Instructions PO .COMPLEX 11/30/23 #30 tabs omeprazole 40 mg capsule,delayed 40 mg PO DAILY #30 caps 04/27/24 release Allergies Allergy/AdvReac Type Severity Reaction Status Date / Time No Known Allergies Allergy Verified 04/27/24 20:56 [No Known Allergies*] Review of Systems Review of Systems: Yes all other systems are reviewed and are negative PMFSH Past Medical History Medical History Sterilization Supervision of other normal , antepartum Surgical History H/O bilateral salpingectomy H/O tubal ligation Hx of myomectomy History of hysteroscopy Hx of section Family History Family History Family/Other History of breast cancer in female Father Hypertension History of prostate cancer Mother Hypertension Hx of diabetes mellitus Hx of cancer of lung Asthma Sister Hypertension Hx of thyroid disease Maternal Grandfather Hypertension Hx of cancer of lung Maternal Grandmother Hypertension Hx of cardiovascular disorder Paternal Grandfather Hypertension Paternal Grandmother Hypertension Other Mental health disorder Social History Social History Housing: House Alcohol intake: never Patient Tobacco Use Status: Never used Tobacco Smoked in Last 30 Days: No e-Cigarette/Vaping Use: Never Used Second Hand Smoke Exposure: No Use of substances other than those prescribed or required for medical reasons: No Advance Directives: No Advance Directives Information Provided: Yes Do you have a plan to hurt others: No Plan Patient : No service: No Current occupational status: unemployed Current occupational exposures/hazards: No Sexual orientation: Straight/Heterosexual Gender identity: Female Cognitive needs: No Hearing needs: No Vision needs: No Physical Exam ED Vital Signs: Vital Signs - 24 hr 04/27/24 20:47 04/28/24 00:46 04/28/24 00:48 Temperature 97.6 F 97.6 F 97.6 F Pulse Rate 71 77 77 Respiratory Rate 18 16 16 Blood Pressure 119/77 123/66 123/66 Pulse Oximetry 100 100 100 Oxygen Delivery Method Room Air Room Air Room Air BMI result Body Mass Index 29.4 Const Other: The patient is awake, alert, pleasant, cooperative. She does not appear in obvious distress. HENMT Other: Face is symmetrical. Mucous membranes moist. Eyes Other: Pupils are round equal, conjunctivae are clear Neck Other: Moving her neck easily Resp Effort & Inspection: normal respiratory effort Auscultation: clear to auscultation bilaterally Cardio Rate: regular rate Rhythm: regular rhythm Heart sounds: S1 normal heart sound present and S2 normal heart sound present GI Other: The abdomen is flat and soft. She has right upper quadrant and epigastric tenderness. Skin Other: Skin is dry and unremarkable Neuro Other: The patient is awake and alert with a normal mental status. Speech is clear. Face is symmetrical. She moves her extremities symmetrically. Extrem Other: No peripheral edema Medications Administered Discontinued Medications Generic Name Dose Route Start Last Admin Trade Name Freq PRN Reason Stop Dose Admin Famotidine 20 mg 04/27/24 22:27 04/27/24 23:33 Famotidine/Pf 20 Mg/2 Ml Vial IVPUSH 04/27/24 22:28 20 mg ONCE ONE Administration Sodium Chloride 1,000 mls @ 999 mls/hr 04/27/24 22:30 04/28/24 00:42 Ns IV 04/27/24 23:30 Infused .Q1H1M KAY Infusion Iohexol 85 ml 04/27/24 22:54 04/27/24 22:54 Iohexol 350 Mg/Ml 100 Ml Infus..Btl IV 04/27/24 22:55 85 ml ONCE ONE Administration Ketorolac Tromethamine 10 mg 04/27/24 22:24 04/27/24 22:34 Ketorolac Tromethamine 15 Mg/Ml Vial IVPUSH 04/27/24 22:25 10 mg ONCE ONE Administration Ondansetron HCl 4 mg 04/27/24 22:24 04/27/24 22:35 Ondansetron Hcl 4 Mg/2 Ml Vial IVPUSH 04/27/24 22:25 4 mg ONCE ONE Administration Medical Decision Making Medical Decision Making [facility] Narrative: The patient is a 28-year-old female who presents complaining of increased stooling over the last few weeks associated with small amounts of blood with bowel movements. I suspect she was probably having some hemorrhoidal bleeding. She is also complaining of upper abdominal pain exacerbated by eating. Her labs are unremarkable. A CT scan shows no acute biliary problem. I suspect she probably has gastritis. She will be started on omeprazole. She should follow up with her PCP. Lab Data 04/27/24 21:07 04/27/24 21:07 Labs: Lab Results 04/27/24 Range/Units 21:07 WBC 11.3 H (4.8-10.8) X10*3/uL RBC 5.11 (4.20-5.50) X10*6/uL Hgb 14.2 (12.0-16.0) g/dl Hct 43.3 (37.0-47.0) % MCV 84.7 (80.0-98.0) fL MCH 27.8 (27.0-33.0) pg MCHC 32.8 (31.0-35.0) g/dl RDW 12.8 (11.0-16.0) % Plt Count 335 (160-400) X10*3/uL MPV 10.4 (9.4-12.3) fL Immature Gran % (Auto) 0.2 (0.0-0.4) % Neut % (Auto) 68.3 (45-73) % Lymph % (Auto) 24.7 (20-40) % [place] % (Auto) 4.4 (2-11) % Eos % (Auto) 2.0 (0-4) % Baso % (Auto) 0.4 (0-2) % Lymph # (Auto) 2.8 (1.2-4.9) X10*3/uL [place] # (Auto) 0.5 (0.1-1.2) X10*3/uL Eos # (Auto) 0.2 (0.0-0.4) X10*3/uL Baso # (Auto) 0.0 (0.0-0.2) X10*3/uL Abs Immat Gran (auto) 0.02 (0.00-0.03) X10*3/uL Absolute Neuts (auto) 7.7 (2.0-8.3) x10*3/uL Absolute Nucleated RBC 0.000 (0.0-0.012) X10*3/uL Nucleated RBC % (auto) 0.0 (0.0-0.2) /100WBC Sodium 142 (135-145) mmol/L Potassium 4.1 (3.3-5.1) mmol/L Chloride 105 (96-108) mmol/L Carbon Dioxide 29 (22-29) mmol/L Anion Gap 12 (12-20) BUN 12 (9-16) mg/dL Creatinine 0.86 (0.5-1.4) mg/dL Estim Creat Clear Calc 90.1 Estimated GFR > 60 Random Glucose 96 (60-115) mg/dL Calcium 9.5 (8.4-10.2) mg/dL Total Bilirubin 0.4 (0.0-1.0) mg/dL Direct Bilirubin 0.1 (0.0-0.5) mg/dL AST 16 (5-31) U/L ALT 13 (0-31) U/L Alkaline Phosphatase 61 (39-117) U/L C-Reactive Protein < 0.04 (< or = 0.50) mg/dL Total Protein 7.6 (6.5-8.0) g/dL Albumin 4.6 (3.5-5.0) g/dL Lipase 32 (8-78) U/L Urine Color Yellow Urine Appearance Turbid Urine pH 8.0 (5.0-9.0) Ur Specific [place] 1.015 (1.005-1.025) Urine Protein Negative (Neg-Trace) mg/dL Urine Glucose (UA) Negative (Negative) mg/dL Urine Ketones Negative (Negative) mg/dL Urine Blood Negative (Negative) Urine Nitrite Negative (Negative) Ur Leukocyte Esterase Small (1+) H (Negative) Urine RBC 0-2 (0-2) /HPF Urine WBC 0-5 (0-5) /HPF Ur Squamous Epith Cells 11-20 (0-2) /HPF Urine Bacteria 1+ (None Seen) Hyaline Casts 0-2 (0-2) /LPF Urine Test NEGATIVE (NEGATIVE) Discharge Plan Discharge Clinical Impression: Acute epigastric pain, Loose stools Patient Disposition: Home, Self-Care Instructions: Gastritis (ED) Additional Instructions: Your blood testing and the CT scan of your abdomen today are reassuring. The pain in your upper abdomen may be a problem called gastritis, an irritation of the lining of the stomach from stomach acid. I have sent a prescription for medication called omeprazole to your pharmacy. Please take this daily to see if it helps with your symptoms. I suspect that the blood you have been having with your stool may be from hemorrhoids. Please make an appointment soon with your regular doctor to discuss these symptoms further. Return to the emergency room if significantly worse. Prescriptions: New omeprazole 40 mg capsule,delayed release(DR/EC) 40 mg PO DAILY Qty: 30 0RF No Action cetirizine [Zyrtec] 10 mg tablet 10 mg PO DAILY 30 Days Qty: 30 2RF sumatriptan succinate 25 mg tablet See Rx Instructions PO .COMPLEX Qty: 30 1RF Rx Instructions: take 1 tab at onset of headache; if no relief may repeat 1 tab after at least 2 hrs; max = 4 tabs/24 hr PO spironolactone 50 mg tablet 50 mg PO BID tretinoin 0.025 % cream 1 appl topical BEDTIME cholecalciferol (vitamin D3) [Vitamin D3] 25 mcg (1,000 unit) tablet 25 mcg PO DAILY Referrals: Philipp Blake [Primary Care Provider] - (epigastric pain, loose stools) Interventions: ED Discharge Assessment Last Done: 04/28/24 00:48 Discharge Date/Time: 04/28/24 00:48 Print Language: Japanese
[2024-04-27 22:05] LABS: C Reactive Protein < 0.04 mg/dL (< or = 0.50)
[2024-04-27] MEDS: 0.9 % Sodium Chloride 1,000 ML 999 ML IV (22:34)
[2024-04-27] MEDS: Ketorolac Tromethamine 15 MG/ML VIAL 10 MG IVPUSH (22:34)
[2024-04-27] MEDS: ondansetron HCL 4 MG/2 ML VIAL IVPUSH (22:35)
[2024-04-27] MEDS: iohexoL 350 MG/ML 100 ML INFUS..BTL 85 ML IV (22:54)
[2024-04-27] MEDS: Famotidine/PF 20 MG/2 ML VIAL IVPUSH (23:33)
[2024-04-28 00:46] VITALS: BP 123/66; PULSE 77; RESP 16; TEMP 36.4; O2SAT 100
[2024-04-28 00:48] VITALS: BP 123/66; PULSE 77; RESP 16; TEMP 36.4; O2SAT 100
== END 2024-04-28 00:48 | disposition home or self-care (01) ==
PROVIDERS: Emergency Provider Emergency Medicine
DX: R10.10 Upper abdominal pain, unspecified (principal); R19.7 Diarrhea, unspecified; R10.13 Epigastric pain; K64.9 Unspecified hemorrhoids; Z79.899 Other long term (current) drug therapy
CPT/HCPCS: 36415; 74177; 80048; 80076; 81001; 81025; 83690; 85025; 86140; 87086; 96361; 96374; 96375; 99284; 99285; J1885; J2405; Q9967

== ENCOUNTER 2024-05-12 15:22 | Outpatient (AMB) | payer OTHER, SELFPAY ==
--- NOTE | 2024-05-12 15:26 | A.OFFPC_ITS ---
Vital Signs 05/12/24 15:33 Height 5 ft 2 in Weight 160 lb 2 oz BMI 29.3 BP 102/68 Blood Pressure Location Lt brachial Position Sitting Respiration 16 Pulse 78 Pulse Source Pulse Oximeter Temp 97.8 F Temp Source Oral Pulse Oximetry (%) 98 Oxygen Delivery Method Room Air Intake Visit Reasons: hdf Intake Note: patient here for follow up c/o a lot of gas and blood in stool. she went to [facility] ED like 2 weeks ago with stomache pain. Vice President Of Customer Service Required: Yes Vice President Of Customer Service Name: english Is last menstrual period known: Yes Last menstrual period: 05/09/24 Post menopausal: No Patient : No Allergies No Known Allergies [No Known Allergies*] Allergy (Verified 05/12/24 15:50) Medication List - Last Reconciled 05/12/24 by Philipp Blake CNP cetirizine (Zyrtec) 10 mg PO DAILY 30 days cholecalciferol (vitamin D3) (Vitamin D3) 25 mcg PO DAILY omeprazole 40 mg PO DAILY spironolactone 50 mg PO BID sumatriptan succinate take 1 tab at onset of headache; if no relief may repeat 1 tab after at least 2 hrs; max = 4 tabs/24 hr PO tretinoin 0.025% 1 appl topical BEDTIME Tobacco use date assessed: 05/12/24 Dental Screening Dental Screen Date: 05/12/24 Did you have a dental visit in the last 12 months?: Yes Did you have a dental problem in the last 6 months where you did not have access to dental care?: No Was dental information given to patient?: Patient has dentist HPI HPI Comments History of Present Illness Details 28-year-old Romansh-speaking female pres ents for a hospital discharge follow-up She was evaluated and treated for abdominal pain and loose/bloody stools at [facility] on 04/27/2024. Labs were unrevealing. Abdominal CT revealed the following: IMPRESSION: 1. A cause for the patient's right uppe r quadrant pain, tenderness and diarrhea has not been found. 2. Incidental note made of mild hepatom egaly, uterine fibroids and small amount of free pelvic fluid. She was treated for hemorrhoidal bleeding and gastritis. She was discharged home on omeprazole 40 mg daily and instructions to follow-up with her PCP. She reports increased bright red blood in her stool with dedication since she the last time she was evaluated in the ED. She notes have 3 bowel movements daily. She denies diarrhea and constipation. She states that she has a lots of gas with bowel movements. She notes that she has a bowel movement whenever she eats any food. She also reports intermittent associated burning pain. The last time she experienced abdomen pain was this morning. She admits to eating healthy. She denies straining with defecation, n/v, or consuming fatty or greasy foods. She has been taking Omeprazole as prescribed with minimal relief. She also reports history of hemorrhoids with intermittent pain without treatment. Interpretation by professional dormitory counselor via video. [facility] Medical History Sterilization Supervision of other normal , antepartum Surgical History H/O bilateral salpingectomy H/O tubal ligation Hx of myomectomy History of hysteroscopy Hx of section Family History Family/Other History of breast cancer in female Father Hypertension History of prostate cancer Mother Hypertension Hx of diabetes mellitus Hx of cancer of lung Asthma Sister Hypertension Hx of thyroid disease Maternal Grandfather Hypertension Hx of cancer of lung Maternal Grandmother Hypertension Hx of cardiovascular disorder Paternal Grandfather Hypertension Paternal Grandmother Hypertension Other Mental health disorder Social History Housing: House Alcohol intake: never Patient Tobacco Use Status: Never used Tobacco e-Cigarette/Vaping Use: Never Used Second Hand Smoke Exposure: No service: No Current occupational status: unemployed Current occupational exposures/hazards: No Sexual orientation: Straight/Heterosexual Gender identity: Female Cognitive needs: No Hearing needs: No Vision needs: Yes Female Reproductive History Menstrual Age of Menarche: 12 Date of last menstrual period: 05/09/24 Questionnaire PHQ-9 Over the last 2 weeks, how often have you been bothered by any of the following problems? 1. Little interest or pleasure in doing things: several days 2. Feeling down, depressed, or hopeless: more than half the days 3. Trouble falling or staying asleep, or sleeping too much: several days 4. Feeling tired or having little energy: several days 5. Poor appetite or overeating: several days 6. Feeling bad about yourself - or that you are a failure or have let yourself or your family down: several days 7. Trouble concentrating on things, such as reading the newspaper or watching television: more than half the days 8. Moving or speaking so slowly that other people could have noticed. Or the opposite - being so fidgety or restless that you have been moving around a lot more than usual: not at all 9. Thoughts that you would be better off or of hurting yourself in some way: not at all Total score: 9 92272 - PHQ-9 Billing: Yes Source: Developed by Drs. Juarez Kuhn, Helena Ferreira, Rogerio Taylor and colleagues, with an educational jessica from [employer]. Thrive Questionnaire Date Thrive assessed: 12/28/23 AUDIT C Alcohol Use Questionnaire (AUDIT-C) 1. How often do you have a drink containing alcohol?: Never Total Score: 0 STEVEN-7 AMB Questionnaire STEVEN-7 Date STEVEN - 7 assessed: 12/28/23 Source: Developed by Drs. Juarez Kuhn, Helena Ferreira, Rogerio Taylor and colleagues, with an educational jessica from [employer]. Review of Systems Const Details: Const Denies chills, Denies fatigue, Denies fever(s), Denies headache(s) and Denies weakness ENT Denies dizziness and Denies headache(s) Card Denies chest pain, Denies lightheadedness, Denies dyspnea and Denies other (Palpitations) Resp Denies cough, Denies dyspnea, Denies wheezing and Denies other ( shortness of breath) GI Denies abdominal pain, Reports melena, Reports hematochezia, Reports change in bowel habits, Reports dyspepsia and Denies nausea Denies hematuria and Denies dysuria Musc Denies abnormal gait, Denies myalgias, Denies arthralgias, Denies numbness and Denies tingling Skin/Breast Denies rash, Denies unusual bruising and Denies wounds Neuro Denies abnormal gait, Denies dizziness, Denies headache(s), Denies memory loss, Denies numbness, Denies Sensory deficit (Neuro), Denies tingling and Denies weakness Psych Denies anxiety, Denies depression, Denies memory loss Endo Denies cold intolerance, Denies fatigue, Denies heat intolerance, Denies polydipsia and Denies polyuria Aller/Immun Denies wheezing Physical exam (Primary Care) Vital Signs: Last Vital Signs Temp 97.8 F 05/12/24 15:33 Pulse 78 05/12/24 15:33 Resp 16 05/12/24 15:33 BP 102/68 05/12/24 15:33 Pulse Ox 98 05/12/24 15:33 Oxygen Delivery Method Room Air 05/12/24 15:33 BMI result Body Mass Index 29.3 Tobacco/Smoking Status: Tobacco use Status Tobacco use date assessed 05/12/24 05/12/24 15:33 Patient Tobacco Use Status Never used Tobacco 05/12/24 15:27 e-Cigarette/Vaping Use Never Used 05/12/24 15:27 PHQ-9: PHQ-9 Score PHQ-9: Total score 9 05/12/24 15:37 Thrive Assessment: Date of Thrive Assessment Date Thrive assessed 12/28/23 05/12/24 15:27 Const Other: General: no acute distress and well developed Nutritional Appearance: well nourished Orientation/consciousness: patient oriented x3 HENMT Head: Yes normocephalic and Yes atraumatic Eyes General: appearance normal, both eyes and all related structures Pupils: Equal, round and reactive pupils present EOM: EOMs intact bilaterally Resp Effort & Inspection: normal respiratory effort Auscultation: clear to auscultation bilaterally Cardio Rate: regular rate Rhythm: regular rhythm Heart sounds: S1 normal heart sound present, S2 normal heart sound present, no gallops, no murmurs and no rubs GI Palpation (GI): No Abdominal aortic bruit present, Soft to palpation, nontender, No hepatosplenomegaly present and No Rebound tenderness present Auscultation: normal bowel sounds General: Yes no CVA tenderness Back/Spine/Pelvis Back: no CVA tenderness Cervical Spine: cervical ROM normal and No Cervical spine tenderness Thoracic/Lumbar Spine: thoraco-lumbar ROM normal, No pain with thoraco-lumbar ROM, No thoracic spinal tenderness and No lumbar spinal tenderness Extrem General: Yes normal to inspection, No edema and No calf tenderness Skin General: warm and dry. Normal skin color. Normal skin turgor Neuro General: patient oriented x3, gait normal and no focal neuro deficit Cranial nerves: Yes Equal, round and reactive pupils present Cognition (Neuro): normal cognition Gait exam (Neuro): Normal gait present Sensory Exam: No Sensory deficit (Neuro) Psych Appearance: grossly normal Affect: normal affect Attitude: cooperative Thought process: Normal thought process present Assessment and Plan Assessment & Plan (1) Bloody stools: Code(s): K92.1 - Melena Plan: Reports Bright red blood in loose stool few times daily. Associated intermittent flatulence and burning epigastric pain Symptoms likely related to GERD and hemorrhoids Continue to take omeprazole 40 mg daily Simethicone and hemorrhoidal cream ordered. Advised to take/apply as prescribed. Instructed on the risks, benefits, and potential adverse reactions of the medications Urgent referral made to [facility] gastroenterology Encouraged to get fasting blood work done and schedule an appointment for a complete physical exam Return with symptoms or concerns Verbalized understanding and agreed with the treatment plan (2) Flatulence: Code(s): R14.3 - Flatulence Plan: As above (3) Hemorrhoids: Code(s): K64.9 - Unspecified hemorrhoids Plan: As above Orders: Referrals Gastroenterology Referral K64.9 - Unspecified hemorrhoids, K92.1 - Melena, R14.3 - Flatulence Medications: New lidocaine 5% (Hemorrhoidal Relief) 1 appl topical TID PRN 15 grams 0RF pain simethicone (Gas Relief (simethicone)) 125 mg PO QID PRN 120 tabs 0RF abdominal distention Coding Level of Care Code Est Pt Level 4 (32043) Complex EM visit Add On G2211 Diagnoses Bloody stools K92.1 Flatulence R14.3 Hemorrhoids K64.9
[2024-05-12 15:33] VITALS: BP 102/68; PULSE 78; RESP 16; TEMP 36.6; O2SAT 98; BMI 29.3
== END 2024-05-12 16:15 | disposition home or self-care (01) ==
PROVIDERS: Visit Provider Nurse Practitioner Family
DX: K92.1 Melena (principal); R14.3 Flatulence; K64.9 Unspecified hemorrhoids
CPT/HCPCS: 99214; G2211

== ENCOUNTER 2024-05-14 09:27 | Outpatient (REF) | payer MEDICAID, SELFPAY ==
[2024-05-14 11:24] LABS: Appearance Urine Clear; Color Urine Yellow; Glucose Urine UA Negative (Negative); Leukocyte Esterase Urine Trace (Negative); Nitrite Urine Negative (Negative); Specific Gravity - Urine 1.025 (1.005-1.025); UMIC TRIGGER UACC YES; Urine Blood Small (1+) (Negative); Urine Ketones Negative (Negative); Urine Protein Negative (Neg-Trace)
[2024-05-14 11:52] LABS: Bacteria Urine 1+ (None Seen); Hyaline Casts Urine 0-2 /LPF (0-2); RBC Urine 0-2 /HPF (0-2); WBC Urine 0-5 /HPF (0-5)
[2024-05-14 12:15] LABS: Cholesterol 161 mg/dL (<200); HDL Cholesterol 45 mg/dL (>40); LDL Cholesterol Calculated 104 mg/dL (<100); Triglycerides 61 mg/dL (<150)
[2024-05-14 12:35] LABS: Vitamin D 25-OH Total 30.9 ng/mL (>30)
== END 2024-05-14 09:28 | disposition home or self-care (01) ==
LOC: HO.LAB 09:27
PROVIDERS: PCP Nurse Practitioner Family; Visit Provider Nurse Practitioner Family
DX: Z00.00 Encounter for general adult medical examination without abnormal findings (principal)
CPT/HCPCS: 36415; 80061; 81001; 82306

== ENCOUNTER 2024-07-09 10:07 | Outpatient (AMB) | payer MEDICAID, SELFPAY ==
--- NOTE | 2024-07-09 10:13 | MHC.PC.OV ---
Vital Signs 07/09/24 10:20 Height 5 ft 2 in Weight 166 lb BMI 30.4 BP 122/78 Blood Pressure Location Rt brachial Position Sitting Respiration 16 Pulse 84 Pulse Source Pulse Oximeter Temp 97.5 F Temp Source Oral Pulse Oximetry (%) 100 Oxygen Delivery Method Room Air Intake Visit Reasons: cpe Intake Note: patient here for CPE. Lump Receiver Required: Yes Lump Receiver Language: Burundian Is last menstrual period known: Yes Last menstrual period: 06/26/24 Post menopausal: No Patient : No Allergies No Known Allergies [No Known Allergies*] Allergy (Verified 07/09/24 10:26) Medication List - Last Reconciled 07/09/24 by Philipp Blake CNP cetirizine (Zyrtec) 10 mg PO DAILY 30 days cholecalciferol (vitamin D3) (Vitamin D3) 25 mcg PO DAILY lidocaine 5% (Hemorrhoidal Relief) 1 appl topical TID PRN omeprazole 40 mg PO DAILY simethicone (Gas Relief (simethicone)) 125 mg PO QID PRN spironolactone 50 mg PO BID sumatriptan succinate take 1 tab at onset of headache; if no relief may repeat 1 tab after at least 2 hrs; max = 4 tabs/24 hr PO tretinoin 0.025% 1 appl topical BEDTIME Tobacco use date assessed: 07/09/24 Dental Screening Dental Screen Date: 07/09/24 Did you have a dental visit in the last 12 months?: Yes Did you have a dental problem in the last 6 months where you did not have access to dental care?: No Was dental information given to patient?: Patient has dentist HPI HPI Comments History of Present Illness Details 28-year-old Burundian-speaking female presents for an extended physical exam She has history of migraine, vitamin-D deficiency, and acne She is on Spironolactone 50mg BID, Vitamin D3 25mcg QD, sumatriptan, and tretinoin She admits to taking her medications as prescribed without adverse reactions She continues to experience bright red stools. No abdominal pain.3 She has an appointment scheduled with [facility] next month She notes that she is currently going through a divorce and feels stressed and anxious. She denies SI or HI. She is willing to speak to a therapist She notes that she generally eats. She exercises at times. She is unable to sleep at times due to recent stress of divorce and caring for her 3 children Nonsmoker. Nondrinker, no recreational drug use Last Pap smear test was in 02/2022 She does not remember if she had a tetanus vaccine Her last eye exam was less than a year ago. She was signed a release for her PCP to obtain records of her eye exam She is followed by [facility] Interpretation by professional translator and interpreter via electronic tablet [facility] Medical History Sterilization Supervision of other normal , antepartum Surgical History H/O bilateral salpingectomy H/O tubal ligation Hx of myomectomy History of hysteroscopy Hx of section Family History Family/Other History of breast cancer in female Father Hypertension History of prostate cancer Mother Hypertension Hx of diabetes mellitus Hx of cancer of lung Asthma Sister Hypertension Hx of thyroid disease Maternal Grandfather Hypertension Hx of cancer of lung Maternal Grandmother Hypertension Hx of cardiovascular disorder Paternal Grandfather Hypertension Paternal Grandmother Hypertension Other Mental health disorder Social History Housing: House Alcohol intake: never Patient Tobacco Use Status: Never used Tobacco e-Cigarette/Vaping Use: Never Used Second Hand Smoke Exposure: No service: No Current occupational status: unemployed Current occupational exposures/hazards: No Sexual orientation: Straight/Heterosexual Gender identity: Female Cognitive needs: No Hearing needs: No Vision needs: Yes Female Reproductive History Menstrual Age of Menarche: 12 Date of last menstrual period: 06/26/24 Questionnaire PHQ-9 Over the last 2 weeks, how often have you been bothered by any of the following problems? 1. Little interest or pleasure in doing things: more than half the days 2. Feeling down, depressed, or hopeless: more than half the days 3. Trouble falling or staying asleep, or sleeping too much: several days 4. Feeling tired or having little energy: more than half the days 5. Poor appetite or overeating: more than half the days 6. Feeling bad about yourself - or that you are a failure or have let yourself or your family down: more than half the days 7. Trouble concentrating on things, such as reading the newspaper or watching television: more than half the days 8. Moving or speaking so slowly that other people could have noticed. Or the opposite - being so fidgety or restless that you have been moving around a lot more than usual: more than half the days 9. Thoughts that you would be better off or of hurting yourself in some way: not at all Total score: 15 Depression Screening Interpretation: Positive Depression Screening Done: Yes [id number] - PHQ-9 Billing: Yes Source: Developed by Drs. Juarez Kuhn, Helena Ferreira, Rogerio Taylor and colleagues, with an educational jessica from [employer]. Thrive Questionnaire Date Thrive assessed: 07/09/24 I am a: Patient What is your living situation today?: I have a steady place to live Within the past 12 months, did the food you bought not last and you didn't have the money to get more?: Never true Within the past 12 months, did you worry whether your food would run out before you got money to buy more?: Never true Do you have trouble paying for medicines?: No Do you have trouble getting transportation to medical appointments?: No Do you have trouble paying your heating and electricity bill?: No Do you have trouble taking care of your child, family member or friend?: No Do you have trouble with day-to-day activities such as bathing, preparing meals, shopping, managing finances, etc.?: No Are you currently unemployed and looking for a job?: No Are you interested in more education?: No Please select the resources that you would like help with: None Currently or been in a relationship where the following occur: No concerns reported THRIVE Score: 0 AUDIT C Alcohol Use Questionnaire (AUDIT-C) 1. How often do you have a drink containing alcohol?: Never Total Score: 0 Score Reviewed/Action Taken: Yes STEVEN-7 AMB Questionnaire STEVEN-7 Date STEVEN - 7 assessed: 07/09/24 Feeling nervous, anxious, or on edge: 3 = Nearly every day Not being able to stop or control worryin = Nearly every day Worrying too much about different things: 2 = More than half the days Trouble relaxin = More than half the days Being so restless that it is hard to sit still: 0 = Not at all Becoming easily annoyed or irritable: 0 = Not at all Feeling afraid as if something awful might happen: 2 = More than half the days Total STEVEN-7 score (0-4 normal; 5-9 mild; 10-14 moderate; 15-21 severe): 12 Source: Developed by Drs. Juarez Kuhn, Helena Ferreira, Rogerio Taylor and colleagues, with an educational jessica from [employer]. STEVEN-7 Assessment Billing STEVEN-7 Assessment Tool: STEVEN-7 Assessment [id number] Review of Systems Const Details: Denies chills, Denies fatigue, Denies fever(s), Denies headache(s) and Denies weakness HEENT Denies change in vision, Denies dizziness, Denies headache(s), Denies hearing loss, Denies nasal congestion, Denies sinus pain, Denies sinus pressure and Denies sore throat Card Denies chest pain, Denies lightheadedness, Denies dyspnea and Denies other (palpitations) Resp Denies cough, Denies dyspnea and Denies wheezing GI Denies abdominal pain, Denies melena, Denies hematochezia, Denies change in bowel habits, Denies dyspepsia and Denies nausea Denies hematuria and Denies dysuria Musc Denies abnormal gait, Denies myalgias, Denies arthralgias, Denies numbness and Denies tingling Skin/Breast Denies rash, Denies unusual bruising and Denies wounds Neuro Denies abnormal gait, Denies dizziness, Denies headache(s), Denies memory loss, Denies numbness, Denies Sensory deficit (Neuro), Denies tingling and Denies weakness Psych Denies anxiety, Denies depression and Denies memory loss Endo Denies cold intolerance, Denies fatigue, Denies heat intolerance, Denies polydipsia and Denies polyuria Adrian/Lymph Denies easy bleeding and Denies easy bruising Aller/Immun Denies wheezing Physical exam (Primary Care) Vital Signs: Last Vital Signs Temp 97.5 F 07/09/24 10:20 Pulse 84 07/09/24 10:20 Resp 16 07/09/24 10:20 BP 122/78 07/09/24 10:20 Pulse Ox 100 07/09/24 10:20 Oxygen Delivery Method Room Air 07/09/24 10:20 BMI result Body Mass Index 30.4 Tobacco/Smoking Status: Tobacco use Status Tobacco use date assessed 07/09/24 07/09/24 10:20 Patient Tobacco Use Status Never used Tobacco 07/09/24 10:14 e-Cigarette/Vaping Use Never Used 07/09/24 10:14 PHQ-9: PHQ-9 Score PHQ-9: Total score 15 07/09/24 11:13 Depression Screening Interpretation: Positive Thrive Assessment: Date of Thrive Assessment Date Thrive assessed 07/09/24 07/09/24 10:26 Currently or been in a relationship where the following occur: No concerns reported Const Other: General: no acute distress, well developed, alert and awake Nutritional Appearance: well nourished Orientation/consciousness: patient oriented x3 HENMT Head: Yes normocephalic and Yes atraumatic Ears: hearing grossly normal bilaterally and TM's normal bilaterally General nose exam: Normal external nose present and Normal nares present Mouth: Normal oral and palatal mucosa present and moist mucous membranes Teeth and gingiva: dentition normal Throat: Yes oropharynx normal Eyes Pupils: Equal, round and reactive pupils present and Pupil accommodation reflex normal EOM: EOMs intact bilaterally Neck Neck: Yes normal visual inspection, Yes no lymphadenopathy and Yes trachea midline Thyroid: Thyroid normal Carotids: no bruits Lymphatic: no lymphadenopathy noted Chest Chest palpation & inspection: normal inspection of the chest Resp Effort & Inspection: normal respiratory effort Auscultation: clear to auscultation bilaterally Cardio Rate: regular rate Rhythm: regular rhythm Heart sounds: S1 normal heart sound present, S2 normal heart sound present, no gallops, no murmurs and no rubs Bruits: no abdominal aortic bruits and no carotid bruits GI Palpation (GI): No Abdominal aortic bruit present, Soft to palpation, nontender, No hepatosplenomegaly present and No Rebound tenderness present Auscultation: normal bowel sounds General: Yes no CVA tenderness Back/Spine/Pelvis Back: no CVA tenderness Cervical Spine: cervical ROM normal and No Cervical spine tenderness Thoracic/Lumbar Spine: thoraco-lumbar ROM normal, No pain with thoraco-lumbar ROM, No thoracic spinal tenderness and No lumbar spinal tenderness Skin General: warm and dry. Normal skin color. Normal skin turgor Lesions: no lesions Rashes: no rashes Trauma: no lacerations or abrasions Wounds: no wounds Nails: normal Neuro General: patient oriented x3, gait normal and CN's II-XI intact bilaterally Cranial nerves: Yes Equal, round and reactive pupils present Cognition (Neuro): normal cognition Gait exam (Neuro): Normal gait present Motor exam (neuro): 5/5 motor strength present throughout Sensory Exam: No Sensory deficit (Neuro) Deep tendon reflexes (DTR's): Right patellar reflex intensity grade: 2+ and Left patellar reflex intensity grade: 2+ Extrem General: Yes normal to inspection, No edema and No calf tenderness Psych Appearance: grossly normal Affect: normal affect Attitude: cooperative Thought process: Normal thought process present Immunizations Boostrix Tdap 2.5 Lf unit-8 mcg-5 Lf/0.5 mL intramuscular syringe Performing Provider: Philipp Blake CNP Performing Location: [facility] Administered by: Lanie Murillo RN on 07/09/24 11:13 Dose Route Admin Location Dispensed Lot Number Expiration Date [facility] Postal Transportation Clerk 0.5 mL IM Right Deltoid 0.5 mL [id number] 07/30/26 40880-372-52 [employer] VIS Given Date VIS Provided VIS Publication Date 07/09/24 Single Vaccine 21 Eligibility Eligibility Date Funding Source Not [facility] Eligible 07/09/24 Private Assessment and Plan Assessment & Plan (1) Normal physical exam: Code(s): Z00.00 - Encounter for general adult medical examination without abnormal findings Plan: No significant physical restrictions or limitations noted Continue current treatment regimen Healthy diet and routine exercise encouraged Follow-up in 1 month for anxiety, stress, and sleep disturbances Return sooner with symptoms or concerns Verbalized understanding and agreed with the treatment plan (2) Bloody stools: Code(s): K92.1 - Melena Plan: She continued to have bright red stools. No abdominal pain, nausea, vomiting, diarrhea, or constipation Will check CBC levels and make changes as needed She has an appointment with [facility] next month Follow-up with worsening or new signs and symptoms Verbalized understanding and agreed with the plan (3) Situational anxiety: Code(s): F41.8 - Other specified anxiety disorders Plan: She reports stress, anxiety, and sleep disturbances due to multiple issues in her life. She is currently going through divorce and has 3 kids to care for PHQ-9 and STEVEN-7 scores revealed moderate depression and moderate anxiety No SI/HI Routine exercise, deep breathing/relaxation techniques encouraged to improve anxiety and stress She met with the [facility] who will refer her to a therapist Follow-up in 1 month or sooner with worsening or new symptoms Verbalized understanding and agreed with the plan (4) Stress: Code(s): F43.9 - Reaction to severe stress, unspecified Plan: Plan as above (5) Sleep disturbance: Code(s): G47.9 - Sleep disorder, unspecified Plan: Plan as above (6) Vaccine for tetanus toxoid: Code(s): Z23 - Encounter for immunization Plan: She does not remember if she had a tetanus vaccine Tetanus vaccine administered today by our nurse Orders: Orders Complete Blood Count no Diff Today K92.1 - Melena Coding Level of Care Code Est Pt Level 4 (70389) Complex EM visit Add On G2211 Diagnoses Normal physical exam Z00.00 Bloody stools K92.1 Situational anxiety F41.8 Stress F43.9 Sleep disturbance G47.9 Vaccine for tetanus toxoid Z23 Additional Codes STEVEN-7 Assessment Billing - STEVEN-7 Assessment Tool: STEVEN-7 Assessment 13412 ([id number])
[2024-07-09 10:20] VITALS: BP 122/78; PULSE 84; RESP 16; TEMP 36.4; O2SAT 100; BMI 30.4
== END 2024-07-09 11:13 | disposition home or self-care (01) ==
PROVIDERS: PCP Nurse Practitioner Family; Visit Provider Nurse Practitioner Family
DX: Z00.00 Encounter for general adult medical examination without abnormal findings (principal); K92.1 Melena; F41.8 Other specified anxiety disorders; F43.9 Reaction to severe stress, unspecified; G47.9 Sleep disorder, unspecified; Z23 Encounter for immunization

== ENCOUNTER → 2024-07-09 10:07 | Outpatient (BNVA) | payer OTHER, SELFPAY | PROVIDERS: PCP Nurse Practitioner Family; Visit Provider Nurse Practitioner Family | DX: Z00.01 Encounter for general adult medical examination with abnormal findings (principal); Z23 Encounter for immunization; K92.1 Melena; F41.8 Other specified anxiety disorders; F43.9 Reaction to severe stress, unspecified; G47.9 Sleep disorder, unspecified | CPT/HCPCS: 36415; 81003; 85027; 90471; 90715; 96127; 99212 ==

== ENCOUNTER 2024-07-09 11:26 | Outpatient (REF) | payer MEDICAID, SELFPAY ==
[2024-07-09 14:16] LABS: Appearance Urine Clear; Color Urine Yellow; Glucose Urine UA Negative (Negative); Leukocyte Esterase Urine Negative (Negative); Nitrite Urine Negative (Negative); PH 7.5 (5.0-9.0); Urine Blood Negative (Negative); Urine Ketones Negative (Negative); Urine Protein Negative (Neg-Trace)
[2024-07-09 14:36] LABS: Hematocrit 41.4 % (37.0-47.0); Hemoglobin 13.4 g/dl (12.0-16.0); Mean Corpuscular HGB Conc 32.4 g/dl (31.0-35.0); Mean Corpuscular Hemoglobin 27.3 pg (27.0-33.0); Mean Corpuscular Volume 84.3 fL (80.0-98.0); Platelet Count 336 X10*3/uL (160-400); Red Blood Count 4.91 X10*6/uL (4.20-5.50); Red Cell Distribution Width 12.8 % (11.0-16.0); White Blood Count 12.4 X10*3/uL (4.8-10.8)
== END 2024-07-09 11:27 | disposition home or self-care (01) ==
LOC: HO.WFDLDS 11:26
PROVIDERS: Visit Provider Nurse Practitioner Family
DX: Z01.419 Encounter for gynecological examination (general) (routine) without abnormal findings (principal); K92.1 Melena; R53.1 Weakness
CPT/HCPCS: 36415; 81003; 85027

== ENCOUNTER 2024-08-13 09:48 | Outpatient (REF) | payer OTHER, MEDICAID, SELFPAY ==
[2024-08-13 11:51] LABS: Hematocrit 41.2 % (37.0-47.0); Hemoglobin 13.1 g/dl (12.0-16.0); Mean Corpuscular HGB Conc 31.8 g/dl (31.0-35.0); Mean Corpuscular Hemoglobin 26.4 pg (27.0-33.0); Mean Corpuscular Volume 83.1 fL (80.0-98.0); Mean Platelet Volume 10.3 fL (9.4-12.3); Platelet Count 312 X10*3/uL (160-400); Red Blood Count 4.96 X10*6/uL (4.20-5.50); Red Cell Distribution Width 12.7 % (11.0-16.0); White Blood Count 9.4 X10*3/uL (4.8-10.8)
[2024-08-13 12:39] LABS: C Reactive Protein < 0.10 mg/dL (< or = 0.50)
[2024-08-13 12:56] LABS: TSH reflex Free T4 0.64 uIU/mL (0.32-4.0)
[2024-08-14 22:47] LABS: Immunoglobulin A 360 mg/dL (47-310)
[2024-08-15 13:48] LABS: Transglutaminase IgA <1.0 U/mL
== END 2024-08-13 09:49 | disposition home or self-care (01) ==
LOC: HO.LAB 09:48
PROVIDERS: PCP Nurse Practitioner Family; Visit Provider Internal Medicine
DX: R19.4 Change in bowel habit (principal)
CPT/HCPCS: 36415; 82784; 84443; 85027; 86140; 86364

== ENCOUNTER 2024-08-13 09:48 | Outpatient (AMB) | payer OTHER, MEDICAID, SELFPAY ==
--- NOTE | 2024-08-13 09:48 | MHC.OFFVIS ---
Vital Signs 08/13/24 09:50 Height 5 ft 2 in Weight 167 lb 8.821 oz BMI 30.6 Intake Visit Reasons: Melena, Flatulence Intake Note: Carol presents in the office as a new patient for melena and flatulence. CC: She states that she is having blood in her stools - she has had this for 3 months. She also is having pains in the stomach. General Office Worker Required: Yes General Office Worker Name: [id number] Fernanda Allergies No Known Allergies [No Known Allergies*] Allergy (Verified 08/13/24 09:50) HPI Comments Details: This is a 28 y.o F who is here for change in bowel habits and blood in stool. Pt seen with the help of marine mechanic. Reports was in usual state of health until April when developed lower abd pain assoc with change in bowel habits to soft, thin stools with blood. Sometimes also sees even without passing a BM. Passing 3-4 stools per day now. With this also has increased bloating. Was given Rx for possible hemorrhoids by PCP but sx persist. [facility] Medical History Sterilization Supervision of other normal , antepartum Surgical History H/O bilateral salpingectomy H/O tubal ligation Hx of myomectomy History of hysteroscopy Hx of section Family History (Updated 08/13/24 @ 09:52 by KENDRICK Santos) Family/Other History of breast cancer in female Father Hypertension History of prostate cancer Mother Hypertension Hx of diabetes mellitus Hx of cancer of lung Asthma Sister Hypertension Hx of thyroid disease Maternal Grandfather Hypertension Hx of cancer of lung Maternal Grandmother Hypertension Hx of cardiovascular disorder Paternal Grandfather Hypertension Paternal Grandmother Hypertension Maternal Uncle Colon cancer Other Mental health disorder Social History Housing: House Alcohol intake: never Patient Tobacco Use Status: Never used Tobacco e-Cigarette/Vaping Use: Never Used Second Hand Smoke Exposure: No service: No Current occupational status: unemployed Current occupational exposures/hazards: No Sexual orientation: Straight/Heterosexual Gender identity: Female Cognitive needs: No Hearing needs: No Vision needs: Yes Female Reproductive History Menstrual Age of Menarche: 12 Review of Systems Const All systems reviewed & are unremarkable except as noted in HPI and below Physical Exam Vital Signs: BMI result Body Mass Index 30.6 No apparent distress Nonicteric Abdomen soft, nondistended rectal: Cecelia Bonds MA present as director experimental medicine. No ext hemorrhoids, small int hemorrhoids Alert and oriented x3, normal gait Assessment & Plan Assessment & Plan (1) Change in bowel habit: Code(s): R19.4 - Change in bowel habit Category: Medical (2) Bloody stools: Code(s): K92.1 - Melena Category: Medical (3) Lower abdominal pain: Code(s): R10.30 - Lower abdominal pain, unspecified Category: Medical (4) Flatulence: Code(s): R14.3 - Flatulence Category: Medical Plan Strong suspicion for underlying IBD. Other ddx include hemorrhoids, SURS, large friable polyp. Plan: - Labs as below - EGD/colo to be booked for luminal eval - PEG prep sent to pharmacy. Instructions reviewed in Chilean and handout provided as well. Follow up after scopes Orders: Orders C Reactive Protein Today R19.4 - Change in bowel habit Calprotectin, Fecal Today R19.4 - Change in bowel habit Complete Blood Count no Diff Today R19.4 - Change in bowel habit TSH reflex Free T4 Today R19.4 - Change in bowel habit Transglutaminase IgA Today R19.4 - Change in bowel habit Immunoglobulin A Today R19.4 - Change in bowel habit Medications: New peg 3350-electrolytes 236-22.74-6.74 -5.86 gram (Golytely) as per split prep instructions, until fecal effluent is clear 240 mL PO Q10M 4,000 mL 0RF colonoscopy Discontinued lidocaine 5% (Hemorrhoidal Relief) Discontinued Reason: Patient Completed Course 1 appl topical TID PRN 15 grams 0RF pain Coding Level of Care Code New Pt Level 4 (23472) Complex EM visit Add On G2211 Diagnoses Change in bowel habit R19.4 Bloody stools K92.1 Lower abdominal pain R10.30 Flatulence R14.3
[2024-08-13 09:50] VITALS: BMI 30.6
== END 2024-08-13 10:16 | disposition home or self-care (01) ==
PROVIDERS: PCP Nurse Practitioner Family; Visit Provider Internal Medicine
DX: R19.4 Change in bowel habit (principal); K92.1 Melena; R10.30 Lower abdominal pain, unspecified; R14.3 Flatulence
CPT/HCPCS: 99204; G2211

== ENCOUNTER 2024-09-16 11:04 | Outpatient (AMB) | payer MEDICAID, SELFPAY ==
[2024-09-16 11:11] VITALS: BP 100/58; BMI 30.9
--- NOTE | 2024-09-16 11:11 | A.OFFVIS_ITS ---
Vital Signs 09/16/24 11:11 Height 5 ft 2 in Weight 169 lb BMI 30.9 BP 100/58 L Blood Pressure Location Lt brachial Position Sitting Intake Visit Reasons: CRM SOLUTION ARCHITECT annual exam Decal Applier Required: Yes Decal Applier Language: Geospatial Image Analyst Services: Decal Applier Present (in person) Decal Applier Name: Nanda MARKS Information Interpreted: non-clinical & clinical Rehabilitation Manager: Rehabilitation Manager Present (Nanda MARKS) Allergies No Known Allergies [No Known Allergies*] Allergy (Verified 08/13/24 09:50) Is last menstrual period known: Yes Last menstrual period: 09/06/24 Post menopausal: No Patient : No HPI Comments Details: She is a premenopausal woman presenting for annual examination. Doing well no concerns. Regular monthly menses. Currently is sexually active. She denies vaginal itching and irritation. STI screening offered, she accepts. She tries to eat healthy and stays active with exercise. Denies family history of ovarian cancer. FH colon and breast. Last pap smear 2021, negative. [facility] Medical History Sterilization Supervision of other normal , antepartum Surgical History H/O bilateral salpingectomy H/O tubal ligation Hx of myomectomy History of hysteroscopy Hx of section Family History (Updated 08/13/24 @ 09:52 by KENDRICK Santos) Family/Other History of breast cancer in female Father Hypertension History of prostate cancer Mother Hypertension Hx of diabetes mellitus Hx of cancer of lung Asthma Sister Hypertension Hx of thyroid disease Maternal Grandfather Hypertension Hx of cancer of lung Maternal Grandmother Hypertension Hx of cardiovascular disorder Paternal Grandfather Hypertension Paternal Grandmother Hypertension Maternal Uncle Colon cancer Other Mental health disorder Social History Housing: House Alcohol intake: never Patient Tobacco Use Status: Never used Tobacco e-Cigarette/Vaping Use: Never Used Second Hand Smoke Exposure: No service: No Current occupational status: unemployed Current occupational exposures/hazards: No Sexual orientation: Straight/Heterosexual Gender identity: Female Cognitive needs: No Hearing needs: No Vision needs: Yes Female Reproductive History Menstrual Age of Menarche: 12 Date of last menstrual period: 09/06/24 control method: permanent sterilization Total pregnancies: 5 Full term: 3 Number of Living Children: 3 Ab spontaneous: 1 Ectopics: 1 History of abnormal pap smear: No (10.18 Neg, 02/27/22 Neg) History of STI: No Review of Systems Const All systems reviewed & are unremarkable except as noted in HPI and below Reports as per HPI Eyes Reports no additional complaints ENT Reports no additional complaints Card Reports no additional complaints Resp Reports no additional complaints GI Reports as per HPI and Reports no additional complaints Reports as per HPI Musc Reports no additional complaints Skin/Breast Reports as per HPI Neuro Reports no additional complaints Psych Reports no additional complaints Endo Reports no additional complaints Adrian/Lymph Reports no additional complaints Aller/Immun Reports no additional complaints Physical Exam Vital Signs: Last Vital Signs BP 100/58 L 09/16/24 11:11 BMI result Body Mass Index 30.9 Const General: cooperative, healthy appearing, no acute distress, well developed and alert Orientation/consciousness: patient oriented x3 HEENT Head: Yes normal to inspection Eyes General: appearance normal, both eyes and all related structures Neck Neck: Yes normal visual inspection Thyroid: Thyroid normal Chest Chest palpation & inspection: normal inspection of the chest and other (no puckering, dimpling, peau de orange, retraction, discharge, masses) Breast/axilla inspection: normal inspection of the breasts Breast/axilla palpation: normal palpation of the breasts Resp Effort & Inspection: normal respiratory effort GI Inspection: Yes normal to inspection and Yes scar Palpation (GI): Soft to palpation Rectal Exam - Female: deferred General: Yes bladder normal to palpation External Female Exam: normal external appearance and normal appearance of the urethra Speculum Exam - Vagina: normal appearance of the vagina, normal palpation and abnormal vaginal discharge (thin, frothy) Speculum Exam - Cervix: normal appearance of the cervix and normal palpation Bimanual exam- vagina & uterus: normal bimanual exam, normal palpation, uterine size normal, bladder normal to palpation, normal palpation and non-tender Bimanual Exam- Adnexa, other: no masses Skin General skin exam: no rashes or lesions noted Rashes: no rashes Neuro General: patient oriented x3 Cognition (Neuro): normal cognition Extrem General: Yes normal to inspection Psych Attitude: cooperative Thought process: Normal thought process present Assessment & Plan Assessment & Plan (1) Encounter for well woman exam with routine gynecological exam: Code(s): Z01.419 - Encounter for gynecological examination (general) (routine) without abnormal findings Category: Medical Plan Discussed: Current recommendations for pap smears per ASCCP guidelines. Breast awareness and periodic breast exams. Maintain a healthy lifestyle including a well balanced diet and routine exercise. Patient verbalizes understanding and agrees to the plan of care. She was given opportunity to ask questions and all questions were answered to the best of my ability. 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 This note is constructed using voice recognition software. While every effort has been made to ensure accuracy, driver manager errors may have been included. Orders: Orders CT NG by PCR Today Z01.419 - Encounter for gynecological examination (general) (routine) without abnormal findings, Z20.2 - Contact with and (suspected) exposure to infections with a predominantly sexual mode of transmission Bacterial Vaginosis Panel Today Z01.419 - Encounter for gynecological examination (general) (routine) without abnormal findings, Z20.2 - Contact with and (suspected) exposure to infections with a predominantly sexual mode of transmission Hepatitis C Antibody Reflex Today Z20.2 - Contact with and (suspected) exposure to infections with a predominantly sexual mode of transmission Hepatitis B Core Antibody Today Z20.2 - Contact with and (suspected) exposure to infections with a predominantly sexual mode of transmission Syphilis Screen Today Z20.2 - Contact with and (suspected) exposure to infections with a predominantly sexual mode of transmission HIV Ab/Ag Today Z20.2 - Contact with and (suspected) exposure to infections with a predominantly sexual mode of transmission Coding Level of Care Code Est Pt Prev Care 18-39y(75898) Diagnoses Encounter for well woman exam with routine gynecological exam Z01.419
== END 2024-09-16 11:54 | disposition home or self-care (01) ==
LOC: HO.HWS 11:05
PROVIDERS: PCP Nurse Practitioner Family; Visit Provider Advanced Practice Midwife
DX: Z01.419 Encounter for gynecological examination (general) (routine) without abnormal findings (principal)
CPT/HCPCS: 99395

== ENCOUNTER 2024-09-16 11:04 | Outpatient (REF) | payer OTHER, MEDICAID, SELFPAY ==
[2024-09-17 03:57] LABS: CT PCR NOT DETECTED (Not Detect.); NG PCR NOT DETECTED (Not Detect.)
[2024-09-17 08:17] LABS: Bacterial Vaginosis PCR POSITIVE (Negative); Candida Group PCR NOT DETECTED (Not Detect); Candida glab krusei PCR NOT DETECTED (Not Detect); Trichomonas vaginalis PCR NOT DETECTED (Not Detect)
[2024-09-17 08:28] LABS: HIV AB/AG Nonreactive (Nonreactive); HIV Num 1 0.07 S/CO (0.00-0.99); Hepatitis B Core Antibody Nonreactive (Nonreactive); ~HepC Num1 0.07 S/CO (0.00-0.79); ~Hepatitis C Antibody Nonreactive (Nonreactive)
[2024-09-17 08:36] LABS: Syphilis Screen Nonreactive (Nonreactive)
== END 2024-09-16 11:05 | disposition home or self-care (01) ==
LOC: HO.LNP 11:04
PROVIDERS: PCP Nurse Practitioner Family; Visit Provider Advanced Practice Midwife
DX: Z01.419 Encounter for gynecological examination (general) (routine) without abnormal findings (principal); Z20.2 Contact with and (suspected) exposure to infections with a predominantly sexual mode of transmission
CPT/HCPCS: 0352U; 86704; 86780; 86803; 87389; 87491; 87591; 99395

== ENCOUNTER 2024-09-16 11:58 | Outpatient (REF) | payer MEDICAID, SELFPAY | END 2024-09-16 11:59 | disposition home or self-care (01) | LOC: HO.LAB 11:58 | PROVIDERS: PCP Nurse Practitioner Family; Visit Provider Advanced Practice Midwife | DX: Z13.89 Encounter for screening for other disorder (principal) ==

== ENCOUNTER 2024-12-23 07:32 | Day surgery (SDC) | payer MEDICAID, SELFPAY ==
[2024-12-19 14:38] VITALS: BMI 30.7
--- NOTE | 2024-12-22 14:05 | HO.ANESPROP2 ---
HPI - Anesthesia Eval Consult details Narrative: 29yo F for Upper Endoscopy and Colonoscopy PMFSH Active Problems Active Problems: All Active Problems Encounter for well woman exam with routine gynecological exam (Acute) Lower abdominal pain (Acute) Change in bowel habit (Acute) Vaccine for tetanus toxoid (Acute) Sleep disturbance (Acute) Stress (Acute) Situational anxiety (Acute) Flatulence (Acute) Hemorrhoids (Acute) Bloody stools (Acute) Vitamin D deficiency (Acute) Laboratory tests ordered as part of a complete physical exam (CPE) (Acute) Weakness (Acute) Dizziness (Acute) Headache (Acute) Vaginal itching (Acute) Breast pain (Acute) Joint pain (Acute) Pain with swallowing (Acute) Normal physical exam (Acute) Overweight (BMI 25.0-29.9) (Acute) History of anemia (Acute) Abnormal uterine bleeding (AUB) (Acute) Well woman exam (Acute) Fatigue (Acute) Ectopic (Acute) COVID-19 (Acute) Incisional infection (Acute) Abdominal pain (Acute) Ruptured ectopic (Acute) Back ache (Acute) Hx of section complicating (Acute) Abnormal glucose affecting (Acute) SOB (shortness of breath) (Acute) Tachycardia (Acute) Encounter for supervision of other normal , second trimester (Acute) H/O bilateral salpingectomy (Acute) Past Medical History Medical History (Updated 12/19/24 @ 14:35 by Radha Ma RN) Anxiety Anemia Family History Family History (Updated 08/13/24 @ 09:52 by KENDRICK Santos) Family/Other History of breast cancer in female Father Hypertension History of prostate cancer Mother Hypertension Hx of diabetes mellitus Hx of cancer of lung Asthma Sister Hypertension Hx of thyroid disease Maternal Grandfather Hypertension Hx of cancer of lung Maternal Grandmother Hypertension Hx of cardiovascular disorder Paternal Grandfather Hypertension Paternal Grandmother Hypertension Maternal Uncle Colon cancer Other Mental health disorder Surgical History Surgical History H/O bilateral salpingectomy H/O tubal ligation Hx of myomectomy History of hysteroscopy Hx of section History of Problems with Anesthesia: No Social History Social History Housing: House Alcohol intake: never Patient Tobacco Use Status: Never used Tobacco e-Cigarette/Vaping Use: Never Used Second Hand Smoke Exposure: No service: No Current occupational status: unemployed Current occupational exposures/hazards: No Sexual orientation: Straight/Heterosexual Gender identity: Female Cognitive needs: No Hearing needs: No Vision needs: Yes Meds Allergies Allergy/AdvReac Type Severity Reaction Status Date / Time No Known Allergies Allergy Verified 08/13/24 09:50 [No Known Allergies*] Home Medications ?Medication ?Instructions ?Recorded ?Confirmed ?Last Taken ?Type cholecalciferol (vitamin D3) 25 25 mcg PO DAILY 12/28/23 12/19/24 Unknown History mcg (1,000 unit) tablet (Vitamin D3) Exam Height,Weight and Vital Signs: Height 5 ft 2 in Weight 76.204 kg Assessment and Plan Assessment Anesthesia Assessment: Chart Reviewed Final Anesthetic Review History of Problems with Anesthesia: No
[2024-12-23 08:09] VITALS: BMI 30.5
[2024-12-23 08:11] VITALS: BP 114/78; PULSE 81; RESP 16; TEMP 37.2; O2SAT 99
--- NOTE | 2024-12-23 08:31 | HO.ANESPROP2 ---
PMF Active Problems Active Problems: All Active Problems Encounter for well woman exam with routine gynecological exam (Acute) Lower abdominal pain (Acute) Change in bowel habit (Acute) Vaccine for tetanus toxoid (Acute) Sleep disturbance (Acute) Stress (Acute) Situational anxiety (Acute) Flatulence (Acute) Hemorrhoids (Acute) Bloody stools (Acute) Vitamin D deficiency (Acute) Laboratory tests ordered as part of a complete physical exam (CPE) (Acute) Weakness (Acute) Dizziness (Acute) Headache (Acute) Vaginal itching (Acute) Breast pain (Acute) Joint pain (Acute) Pain with swallowing (Acute) Normal physical exam (Acute) Overweight (BMI 25.0-29.9) (Acute) History of anemia (Acute) Abnormal uterine bleeding (AUB) (Acute) Well woman exam (Acute) Fatigue (Acute) Ectopic (Acute) COVID-19 (Acute) Incisional infection (Acute) Abdominal pain (Acute) Ruptured ectopic (Acute) Back ache (Acute) Hx of section complicating (Acute) Abnormal glucose affecting (Acute) SOB (shortness of breath) (Acute) Tachycardia (Acute) Encounter for supervision of other normal , second trimester (Acute) H/O bilateral salpingectomy (Acute) Past Medical History Medical History Anxiety Anemia Family History Family History Family/Other History of breast cancer in female Father Hypertension History of prostate cancer Mother Hypertension Hx of diabetes mellitus Hx of cancer of lung Asthma Sister Hypertension Hx of thyroid disease Maternal Grandfather Hypertension Hx of cancer of lung Maternal Grandmother Hypertension Hx of cardiovascular disorder Paternal Grandfather Hypertension Paternal Grandmother Hypertension Maternal Uncle Colon cancer Other Mental health disorder Family history of problems with anesthesia: No Surgical History Surgical History H/O bilateral salpingectomy H/O tubal ligation Hx of myomectomy History of hysteroscopy Hx of section History of Problems with Anesthesia: No Social History Social History Housing: House Alcohol intake: never Patient Tobacco Use Status: Never used Tobacco e-Cigarette/Vaping Use: Never Used Second Hand Smoke Exposure: No Use of substances other than those prescribed or required for medical reasons: No Are you DNR?: No Advance Directives: No Advance Directives Information Provided: Yes service: No Current occupational status: unemployed Current occupational exposures/hazards: No Sexual orientation: Straight/Heterosexual Gender identity: Female Cognitive needs: No Hearing needs: No Vision needs: Yes Meds Allergies Allergy/AdvReac Type Severity Reaction Status Date / Time No Known Allergies Allergy Verified 08/13/24 09:50 [No Known Allergies*] Active Medications: Current Medications Lactated Ringer's (Lr) 1,000 mls @ 100 mls/hr IVCONT .Q10H KAY Home Medications ?Medication ?Instructions ?Recorded ?Confirmed ?Last Taken ?Type cholecalciferol (vitamin D3) 25 25 mcg PO DAILY 12/28/23 12/19/24 Unknown History mcg (1,000 unit) tablet (Vitamin D3) Exam Height,Weight and Vital Signs: Height 5 ft 2 in Weight 75.75 kg Last Vital Signs Temp 98.9 F 12/23/24 08:11 Pulse 81 12/23/24 08:11 Resp 16 12/23/24 08:11 BP 114/78 12/23/24 08:11 Pulse Ox 99 12/23/24 08:11 O2 Del Method Room Air 12/23/24 08:11 Airway Mallampati Class: II TM Dist: >3cm Neck ROM: Full Heart: RRR Lungs: CTA Assessment and Plan Assessment Anesthesia Assessment: Anesthesia Plan Discussed and Chart Reviewed Final Anesthetic Review Family History of Problems with Anesthesia: No History of Problems with Anesthesia: No NPO: Yes ASA Class: II Final Preanesthetic Review: Meds/Allgs Chart Reviewed, Consent Obtained/Reviewed and Anes Risks/Benef Reviewed Patient Risk: Low Procedure Risk: Low Anesthetic Plan Anesthetic Plan: MAC: Disposition: Standard PACU
[2024-12-23] MEDS: Lactated Ringers 1,000 ML 100 ML IVCONT (08:34)
--- NOTE | 2024-12-23 08:49 | P.OPN-COLO_ITS ---
Colonoscopy Operative Note Operative Note Date of Service: 12/23/24 Narrative: Operative Information Procedure Description: Colonoscopy Indication: screening Anesthesia: MAC COLONOSCOPY Instrument: Olympus variable stiffness pediatric scope 190L Colonoscopy Monitoring: Vital signs and clinical assessment, continuous EKG monitoring, Pulse oximetry, Carbon Dioxide monitoring and blood pressure monitoring were done throughout the procedure. Colon withdrawal time was 12 minutes. Procedure: The patient was placed in the left lateral decubitis position and pre-procedure medications were administered. After a digital rectal examination of the ano-rectum, the video colonoscope was inserted into the rectum and advanced through the colon to the cecum/TI. The colonoscope was slowly withdrawn in a retrograde panoramic fashion and the colon mucosa was carefully examined including a retroflexed view of the rectum. Findings and interventions are described below. Procedure Difficulty: easy Findings: Terminal Ileum-normal Cecum: 4-5 mm sessile polyp removed with cold forceps Ascending Colon: normal Transverse Colon -normal Descending Colon: 8-9 mm sessile polyp removed with cold snare Sigmoid Colon: normal Rectum: Retroflexion with small internal hemorrhoids seen, grade I Anorectum - normal Intervention: cold snare and cold forceps Colon preparation: [place] Bowel Preparation Scale Right colon; 2 Transverse colon: 2 Left colon; 1-2 (0 = Unprepared colon segment with mucosa not seen due to solid stool that cannot be cleared. 1 = Portion of mucosa of the colon segment seen, but other areas of the colon segment not well seen due to staining, residual stool and/or opaque liquid. 2 = Minor amount of residual staining, small fragments of stool and/or opaque liquid, but mucosa of colon segment seen well. 3 = Entire mucosa of colon segment seen well with no residual staining, small fragments of stool or opaque liquid) Impression and Post Procedure Diagnosis: colon polyps internal hemorrhoids Plan: High fiber diet leaflet Avoid straining at stool, epsom salts and sitz bath, anusol supps or cream Repeat Colonoscopy in 6-12 months due to polyps and fair prep on left side or earlier if clinically indicated Above findings were reviewed with the patient and relevant handouts were provided if indicated.
--- NOTE | 2024-12-23 08:59 | MHC.SHP ---
Pre-Procedural Eval Section A - 24 Hr Update-Section A only Date of Service: 12/23/24 Section B - Complete if H&P > 30 days Chief Complaint: Change in bowel habit,lower abdominal pain Relevant Family History (Specify if Yes): No Relevant Social History: None Present Medications: see Short Stay Collaborative assessment Medical History: Significant History ( Anxiety Anemia) History of Previous Operations: Relevant previous surgery/procedure and date(s) (H/O bilateral salpingectomy H/O tubal ligation Hx of myomectomy History of hysteroscopy Hx of section) Allergies: Allergies Allergy/AdvReac Type Severity Reaction Status Date / Time No Known Allergies Allergy Verified 08/13/24 09:50 [No Known Allergies*] Review of Systems Sugical H&P ROS: Negative: Constitution, Cardiovascular, Respiratory, Neurological, Psychiatric, Hem-Onc, Allergic/Immunologic, Gastrointestinal, Genitourinary, Musculoskeletal, Integumentary, Endocrine and Eyes/Ears/Nose/Throat Exam Surgical H&P Exam: Normal: HEENT, Normal: Heart, Normal: Lungs, Normal: Extremities, Normal: Abdomen, Normal: Skin and Normal: Neurological Plan Diagnosis/Plan: Unchanged I have reviewed the history and physical and performed a pertinent physical examination on my patient. No changes have occurred unless specified. Time Spent With Patient Time: Total time managing care of this patient today ____ minutes.
--- NOTE | 2024-12-23 09:32 | HO.OPN-COLON ---
Colonoscopy Operative Note Operative Note Date of Service: 12/23/24 Narrative: Operative Information Procedure Description: EGD, Colonoscopy Indication: abn bowel habit Anesthesia: MAC FLEXIBLE TRANSORAL UPPER GASTROINTESTINAL ENDOSCOPY AND COLONOSCOPY PROCEDURE NOTE UPPER ENDOSCOPY Consent: Indications for the procedure and potential complications of bleeding, perforation, reaction to medications and missed diagnosis were discussed with the patient and informed consent was obtained. Instrument: Olympus GIF H 190 J mid size upper endoscope Monitoring: Vital signs and clinical assessment, continuous EKG monitoring, Pulse oximetry, Carbon Dioxide monitoring and blood pressure monitoring were done throughout the procedure. Procedure: The patient was placed in the left lateral decubitis position and pre-procedure medications were administered and a bite block was placed. The endoscope was inserted into the mouth and advanced under direct vision to the third part of duodenum. A careful inspection was made as the upper endoscope was withdrawn including a retroflexed examination of the proximal stomach; Findings and interventions are described below. Findings: Larynx:normal Esophagus: GE junction at 33 cm, diaphragm hiatus at 35 cm, LA grade C esophagitis noted with erosive streaks, bx taken from GEJ and proximal esophagus. The LES was lax. Stomach: Normal mucosa. Biopsies were obtained. Grade 2 flap valve on retroflexed examination of the cardia. Duodenum: Normal bulb and descending duodenum, bx taken Intervention: Biopsies as noted above, COLONOSCOPY Instrument: Olympus variable stiffness pediatric scope 190L Colonoscopy Monitoring: Vital signs and clinical assessment, continuous EKG monitoring, Pulse oximetry, Carbon Dioxide monitoring and blood pressure monitoring were done throughout the procedure. Colon withdrawal time was 12 minutes. Procedure: The patient was placed in the left lateral decubitis position and pre-procedure medications were administered. After a digital rectal examination of the ano-rectum, the video colonoscope was inserted into the rectum and advanced through the colon to the cecum/TI. The colonoscope was slowly withdrawn in a retrograde panoramic fashion and the colon mucosa was carefully examined including a retroflexed view of the rectum. Findings and interventions are described below. Procedure Difficulty:mild Findings: Terminal Ileum-normal, bx taken Random bx taken from right, left and rectum Cecum:normal Ascending Colon: normal Transverse Colon -normal Descending Colon:normal Sigmoid Colon: normal Rectum: Retroflexion with small to medium internal hemorrhoids, grade I Anorectum - normal Colon preparation: [place] Bowel Preparation Scale Right colon; 2 Transverse colon: 2 Left colon; 2 (0 = Unprepared colon segment with mucosa not seen due to solid stool that cannot be cleared. 1 = Portion of mucosa of the colon segment seen, but other areas of the colon segment not well seen due to staining, residual stool and/or opaque liquid. 2 = Minor amount of residual staining, small fragments of stool and/or opaque liquid, but mucosa of colon segment seen well. 3 = Entire mucosa of colon segment seen well with no residual staining, small fragments of stool or opaque liquid) Impression and Post Procedure Diagnosis: Endoscopy Findings: lax LES haital hernia erosive esophagitis Colonoscopy Findings: internal hemerrhoids Plan: Await Pathology results Repeat Colonoscopy aged 45 years or earlier if clinically indicated High fiber diet leaflet avoid straining at stool, epsom salts and sitz bath, anusol supps or cream commence PPI , GERD precautions Above findings were reviewed with the patient and relevant handouts were provided if indicated.
[2024-12-23 09:38] VITALS: BP 88/49; PULSE 75; RESP 16; TEMP 36.9; O2SAT 97
[2024-12-23 09:52] VITALS: BP 106/75; PULSE 72; RESP 16; TEMP 36.9; O2SAT 100
--- NOTE | 2024-12-23 12:07 | HO.POSTANES ---
Post Anesthesia Evaluation Post Anesthesia Evaluation Date of Service: 12/23/24 Vital Signs: Vital Signs Temp Pulse Resp BP Pulse Ox O2 Del Method 12/23/24 09:52 98.5 F 72 16 106/75 100 Room Air 12/23/24 09:38 98.5 F 75 16 88/49 L 97 Room Air 12/23/24 08:11 98.9 F 81 16 114/78 99 Room Air Anesthesia: Monitored Mental Status: Awake Pain Control: Satisfactory Nausea/Vomiting: None Hydration: Adequate Anesthesia-Related Issues: No Anes. Related Issues
== END 2024-12-23 10:41 | disposition home or self-care (01) ==
PROVIDERS: PCP Nurse Practitioner Family; Visit Provider Internal Medicine Gastroenterology
PROC: (CPT 45380; principal; 2024-12-23 09:10)
DX: R19.4 Change in bowel habit (principal); K92.1 Melena; K64.0 First degree hemorrhoids; R14.3 Flatulence; R10.30 Lower abdominal pain, unspecified; K29.50 Unspecified chronic gastritis without bleeding; K20.80 Other esophagitis without bleeding; K44.9 Diaphragmatic hernia without obstruction or gangrene; Z79.899 Other long term (current) drug therapy; Z98.51 Tubal ligation status; Z98.890 Other specified postprocedural states; Z56.0 Unemployment, unspecified
CPT/HCPCS: 45380; 43239; 88305; 88313; 88342; J2003; J2704

== ENCOUNTER → 2024-12-23 07:32 | Outpatient (BNV) | payer MEDICAID, SELFPAY | PROVIDERS: PCP Nurse Practitioner Family; Visit Provider Internal Medicine Gastroenterology | DX: R19.4 Change in bowel habit (principal); K64.8 Other hemorrhoids; K20.90 Esophagitis, unspecified without bleeding | CPT/HCPCS: 43239; 45380 ==

== ENCOUNTER 2025-02-25 11:55 | Outpatient (AMB) | payer MEDICAID, SELFPAY ==
--- NOTE | 2025-02-25 12:19 | AM.OFFVISNUR ---
Intake Visit Reasons: h pylori Allergies No Known Allergies [No Known Allergies*] Allergy (Verified 08/13/24 09:50) Nursing Note Patient presents for collection of H Pylori breath test. Patient has been fasting for 1 hour (nothing to eat, drink, no chewing gum or smoking) has not taken any antacid medication for at least 2 weeks and has no allergies to artificial sweeteners.?? Assessment & Plan Assessment & Plan (1) Flatulence: Code(s): R14.3 - Flatulence Category: Medical (2) Change in bowel habit: Code(s): R19.4 - Change in bowel habit Category: Medical Plan Patient presents for collection of H Pylori breath test. Patient has been fasting for 1 hour (nothing to eat, drink, no chewing gum or smoking) has not taken any antacid medication for at least 2 weeks and has no allergies to artificial sweeteners.???This test checks for an overgrowth of bacteria in your stomach. We all have bacteria but some may have more than others. It is treatable. if the test comes back negative there is nothing else to do. If the test result is positive we will treat you with 2 antibiotics and a medication to decrease the acid in your stomach (PPI) for 2 weeks. Two weeks after you have completed the treatment we will retest you to make sure the overgrowth has resolved. Patient Instructions: Process for specimen collection and reason for testing was explained to the patient. Specimen collection. Patient instructed to take a deep breath and then exhale into the blue bag, filling it up as much as possible. Patient instructed to drink a mixture of water and the artificial sweetener with a straw. A 15 minute wait period was observed. Patient instructed to take a deep breath and then exhale into the pink bag, filling it up as much as possible.?? Coding Level of Care Code Established Pt Est Pt Level 1 (95055) Patient Type Established Medical Decision Making Straight Forward Diagnoses Flatulence R14.3 Change in bowel habit R19.4
--- OUTSIDE RECORDS SUMMARY | 2025-02-25 13:14 | XMS_ITS | Clinical Summary ---
Author Organization [facility] Address [address] [place] [address] Care Team Providers Care Cable Tool Operator Name Role Phone Unavailable Primary Care Provider Unavailabl e Social History Tobacco Use Types Packs/Day Years Used Date Smoking Tobacco: Never Assessed Comments Unknown Sex and Gender Information Value Date Recorded Sex Assigned at Not on file Legal Sex Female 12:15 AM EST Gender Identity Not on file Sexual Orientation Not on file Plan of Treatment Health Maintenance Due Date Last Done Comments DTaP,Tdap,and Td Vaccines (1 - Tdap) 2013 Hepatitis B Vaccines (1 of 3 - 19+ 3-dose series) 2013 Cervical Cancer Screening: P ap Smear 2015 Depression Screening 11/20/2023 HIV Screening 11/20/2023 Hepatitis C Screening 11/20/2023 Social Influencers of Health Screening 11/20/2023 COVID-19 Vaccine (2023-2 5 season) 2024 Influenza Vaccine (Season Ended) 2025 HIB Vaccines Aged Out No longer eligi ble based on patient's age to complete this topic HPV Vaccines Aged Out No longer eligi ble based on patient's age to complete this topic Hepatitis A Vaccines Aged Out No long er eligible based on patient's age to complete this topic IPV Vaccines Aged Out No longer eligi ble based on patient's age to complete this topic MMR Vaccines Aged Out No longer eligi ble based on patient's age to complete this topic Meningococcal ACWY Vaccine Aged Out N o longer eligible based on patient's age to complete this topic Meningococcal B Vaccine Aged Out No l onger eligible based on patient's age to complete this topic Pneumococcal Vaccine: Pediat rics (0 to 5 Years) and At-Risk Patients (6 to 64 Years) Aged Out No longer eligible b ased on patient's age to complete this topic RSV Immunization Patients Un marvin 20 months Aged Out No longer eligible b ased on patient's age to complete this topic Varicella Vaccines Aged Out No longer eligible based on patient's age to complete this topic
--- OUTSIDE RECORDS SUMMARY | 2025-02-25 13:14 | XMS_ITS | Clinical Summary ---
Author Organization [employer] Address [address] [facility] [address] [place] [address] Care Team Providers Care Radiology Receptionist Name Role Phone Unavailable Primary Care Provider Unavailabl e Encounters Date Type Department Care Team Description 01/21/2025 Population Health Risk Score [facility] (C3) Department [address] [address] Provider, Population Health Generic from Last 3 Months Social History Tobacco Use Types Packs/Day Years Used Date Smoking Tobacco: Never Assessed Comments Unknown Sex and Gender Information Value Date Recorded Sex Assigned at Female 08/21/2022 10:31 AM EDT Legal Sex Female 10:31 AM EDT Gender Identity Not on file Sexual Orientation Not on file Plan of Treatment Health Maintenance Due Date Last Done Comments Depression Screening 1994 Alcohol/Substance Use Screening 2006 Tobacco Screening 2006 Family Planning (PISQ) 2009 Hepatitis C Screening 2012 DTaP/Tdap/Td Vaccines (1 - Tdap) 2013 Hepatitis B Vaccines (1 of 3 - 19+ 3-dose series) 2013 Pap Smear 2015 COVID-19 Vaccine ( - 2023-2 5 season) 2024 Influenza Vaccine (#1) 2024 Cervical Cancer Screening 2024 HPV/Cotest 2024 Zoster Vaccines (1 of 2) 2044 RSV Patients and Pa tients Aged 60 years or older (1 - 1-dose 75+ series) 2069 HIV Screening Completed 06/08/2020 HIB Vaccines Aged Out No longer eligi [...] patient's age to complete this topic Meningococcal Vaccine Aged Out No guillermina eloisa eligible based on patient's age to complete this topic Pneumococcal Vaccine: Pediat rics (0 to 5 Years) and At-Risk Patients (6 to 49) Years) Aged Out No longer elig ible based on patient's age to complete this topic RSV under 20 months Aged Out No longe r eligible based on patient's age to complete this topic Rotavirus Vaccines Aged Out No longer eligible based on patient's age to complete this topic Procedures Procedure Name Priority Date/Time Associated Diagnosis Comments ZZZ HISTORICAL HIV AB/AG Routine 06/08/2020 10:02 AM EDT from Last 3 Months or Most Recently Relevant to Health Maintenance Results * HIV AB/AG (06/08/2020 10:02 AM EDT) HIV AG/AB NONREACTIVE [facility] Comment: HIV-1 p24 Ag and/or HIV-1/HIV-2 Ab not detected. ?? A test result that is nonreactive does not exclude the possibility of exposure to or infection with HIV-1 and/or HIV-2. Nonreactive results in this assay for individuals with prior exposure to HIV-1 and/or HIV-2 may be due to antigen and antibody levels that are below the limit of detection of this assay. ?? The [employer] System Validation Engineer HIV Ag/Ab Combo assay result and supplemental assay results should be interpreted in conjunction with the patient's clinical presentation, history and other laboratory results. ??If the results are inconsistent with clinical evidence, additional testing is suggested to confirm the result. 06/08/2020 10:0 2 AM EDT us Sylwia Alvarado HISTORICAL/NON ORDERABLE LABS Fi nal Result [facility] [address] [place] [id number] from Last 3 Months or Most Recently Relevant to Health Maintenance
== END 2025-02-25 12:21 | disposition home or self-care (01) ==
LOC: HO.HGI 11:55
PROVIDERS: PCP Nurse Practitioner Family; Visit Provider Internal Medicine Gastroenterology
DX: R14.3 Flatulence (principal); R19.4 Change in bowel habit

== ENCOUNTER 2025-02-25 11:55 | Outpatient (REF) | payer MEDICAID, SELFPAY ==
[2025-02-25 14:41] LABS: H Pylori Breath Test Negative (Negative)
--- OUTSIDE RECORDS SUMMARY | 2025-02-25 14:50 | XMS_ITS | Clinical Summary ---
Author Organization [facility] Address [address] [place] [address] Care Team Providers Care Leadership Intern Name Role Phone Unavailable Primary Care Provider [...]
--- OUTSIDE RECORDS SUMMARY | 2025-02-25 14:50 | XMS_ITS | Clinical Summary ---
Author Organization [email or web address] Address [address] [facility] [address] [place] [address] Care Team Providers Care Belt Dresser Name Role Phone Unavailable Primary Care Provider Unavailabl e Encounters Date Type Department Care Team Description 01/21/2025 Population Health Risk Score [facility] (C3) Department [address] [address] Provider, Population Health Generic from [...] detection of this assay. ?? The [employer] Landscape Architect And Planner HIV Ag/Ab Combo assay result and supplemental assay results should be interpreted in conjunction with the patient's clinical presentation, history and other laboratory results. ??If the results are inconsistent with clinical evidence, additional testing is suggested to confirm the result. 06/08/2020 10:0 2 AM EDT us Sylwia Alvarado HISTORICAL/NON ORDERABLE LABS Fi nal Result [facility] [address] [place] [id number] from Last 3 Months or Most Recently Relevant to Health Maintenance
== END 2025-02-25 11:56 | disposition home or self-care (01) ==
LOC: HO.LNP 11:55
PROVIDERS: Internal Medicine; PCP Nurse Practitioner Family; Visit Provider Internal Medicine Gastroenterology
DX: R41.3 Other amnesia (principal); R19.4 Change in bowel habit
CPT/HCPCS: 83013; 99211

== ENCOUNTER 2025-08-13 14:32 | Outpatient (AMB) | payer OTHER, SELFPAY ==
[2025-08-13 15:02] VITALS: BP 104/60; BMI 28.7
--- NOTE | 2025-08-13 15:02 | A.OFFVIS_ITS ---
Vital Signs 08/13/25 15:02 Height 5 ft 2 in Weight 157 lb BMI 28.7 BP 104/60 Intake Visit Reasons: AUB Intake Note: pt had CT scan on 07/24/25 for abdominal pain which found fibroids. pt c/o irreg bleeding Forecast Analyst Required: Yes Forecast Analyst Language: Maintenance Equipment Operator Name: Tiffanie [id number] Programmer: Programmer Present (Lindsay) Allergies No Known Allergies (No Known Allergies*) Allergy (Verified 08/13/25 15:04) Is last menstrual period known: Yes Last menstrual period: 08/01/25 HPI Comments Details: Patient is here today for a follow up emergency room and subsequent admission due to ulcerative colitis, seen at [facility]. Abd. CT results were not available today. History of myomectomy, scan04/2024 here revealed fibroids. She is having pelvic pain and abnormal uterine bleeding lasting up to 2 weeks for the last for several months. History of tubal ligation. UPT is negative today. PFSH Medical History Fibroid Anxiety Anemia Surgical History H/O bilateral salpingectomy H/O tubal ligation Hx of myomectomy History of hysteroscopy Hx of section Family History Family/Other History of breast cancer in female Father Hypertension History of prostate cancer Mother Hypertension Hx of diabetes mellitus Hx of cancer of lung Asthma Sister Hypertension Hx of thyroid disease Maternal Grandfather Hypertension Hx of cancer of lung Maternal Grandmother Hypertension Hx of cardiovascular disorder Paternal Grandfather Hypertension Paternal Grandmother Hypertension Maternal Uncle Colon cancer Other Mental health disorder Social History Housing: House Alcohol intake: never Patient Tobacco Use Status: Never used Tobacco e-Cigarette/Vaping Use: Never Used Second Hand Smoke Exposure: No service: No Current occupational status: unemployed Current occupational exposures/hazards: No Sexual orientation: Straight/Heterosexual Gender identity: Female Cognitive needs: No Hearing needs: No Vision needs: Yes Female Reproductive History Menstrual Age of Menarche: 12 Date of last menstrual period: 08/01/25 Review of Systems Const All systems reviewed & are unremarkable except as noted in HPI and below Physical Exam Vital Signs: Last Vital Signs BP 104/60 08/13/25 15:02 BMI result Body Mass Index 28.7 Const General: cooperative, healthy appearing and no acute distress Orientation/consciousness: patient oriented x3 GI Inspection: Yes normal to inspection Palpation (GI): Soft to palpation and Other GI palpation findings present (Nontender) Rectal Exam - Female: visual inspection normal General: Yes bladder normal to palpation External Female Exam: normal appearance of the urethra Speculum Exam - Vagina: normal appearance of the vagina, normal palpation and normal vaginal discharge Speculum Exam - Cervix: normal appearance of the cervix and normal palpation Bimanual exam- vagina & uterus: normal bimanual exam, normal palpation, uterine size normal, bladder normal to palpation, normal palpation, uterine shape normal, non-tender and enlarged on the right (Irregular prominent contour to the right side) Bimanual Exam- Adnexa, other: normal adnexae Neuro General: patient oriented x3 Results AMB Test Urine AMB Test Urine Negative Last Edit by KENDRICK Jones on 08/13/25 15:16 AMB Urinalysis, Automated UA Leukoctes 0.5 Milad/uL Last Edit by KENDRICK Jones on 08/13/25 16:1 1 UA Nitrite Negative Last Edit by KENDRICK Jones on 08/13/25 16:11 UA Urobilinogen 0.5 mg/dL Last Edit by KENDRICK Jones on 08/13/25 16 :11 UA Protein 0.5 mg/dL Last Edit by KENDRICK Jones on 08/13/25 16:11 UA pH 6.0 Last Edit by KENDRICK Jones on 08/13/25 16:11 UA Blood 0 Amor/uL Last Edit by KENDRICK Jones on 08/13/25 16:11 UA Specific Marland 1.020 Last Edit by KENDRICK Jones on 08/13/25 16:11 UA Ketone Positive Last Edit by KENDRICK Jones on 08/13/25 16:11 UA Bilirubin 1 mg/dL Last Edit by KENDRICK Jones on 08/13/25 16:11 UA Glucose 0 mg/dL Last Edit by KENDRICK Jones on 08/13/25 16:11 Results Reviewed Results Reviewed: Laboratory Last Values Urine pH (Auto) 6.0 08/13/25 16:09 Specific Marland (Auto) 1.020 08/13/25 16:09 Urine Protein (Auto) 0.5 mg/dL 08/13/25 16:09 Glucose (UA)(Auto) 0 mg/dL 08/13/25 16:09 Urine Ketones (Auto) Positive 08/13/25 16:09 Urine Blood (Auto) 0 Amor/uL 08/13/25 16:09 Urine Nitrite (Auto) Negative 08/13/25 16:09 Urine Bilirubin (Auto) 1 mg/dL 08/13/25 16:09 Urine Urobilinogen (Auto) 0.5 mg/dL 08/13/25 16:09 Leukocyte Esterase (Auto) 0.5 Milad/uL 08/13/25 16:09 Tst Clinic Negative 08/13/25 15:16 Assessment & Plan Assessment & Plan (1) Fibroid: Code(s): D21.9 - Benign neoplasm of connective and other soft tissue, unspecified Category: Medical Plan: Release records- [facility] for CT scan. Plan follow up pelvic ultrasound to be scheduled. Follow up in person to discuss test results. (2) Pelvic pain: Code(s): R10.2 - Pelvic and perineal pain Plan: GC chlamydia and BV panel obtained, UA ordered. Reviewed pelvic pain warnings and [id number] self-help methods with medication and heating pad. Advised if pain is significant the increased to go to the emergency room for immediate care. Follow up pending test results in person. The patient expressed un derstanding and agreement with the plan of care. All of her questions and concerns were addressed to the best of my ability. Plan This note is constructed using voice recognition software. While every effort has been made to ensure accuracy, cnc milling machine operator errors may have been included. Orders: Orders AMB HCG Urine Test Today Z32.02 - Encounter for test, result negative CT NG by PCR Vag/Cerv Today N93.9 - Abnormal uterine and vaginal bleeding, unspecified AMB Urinalysis Automated Today R10.2 - Pelvic and perineal pain US pelvic and transvaginal Today D21.9 - Benign neoplasm of connective and other soft tissue, unspecified Bacterial Vaginosis Panel Today N93.9 - Abnormal uterine and vaginal bleeding, unspecified Urine Culture Today R10.2 - Pelvic and perineal pain Coding Level of Care Code Est Pt Level 3 (83065) Diagnoses Fibroid D21.9 Pelvic pain R10.2
--- OUTSIDE RECORDS SUMMARY | 2025-08-13 18:24 | XMS_ITS | Clinical Summary ---
Author Organization [facility] Address [address] [place] [address] Care Team Providers Care Dry Mill Operator Name Role Phone Unavailable Primary Care [...] Cervical Cancer Screening: P ap Smear 2015 HPV Vaccines (1 - 3-dose SCD M series) 2021 HIV Screening 11/20/2023 Hepatitis C Screening 11/20/2023 Social Influencers of Health Screening 11/20/2023 Depression Screening 10/22/2024 COVID-19 Vaccine (1 - 2023-2 5 season) 2025 Influenza Vaccine (#1) 2025 RSV Immunization Adult Patie nts (1 - 1-dose 75+ series) 2069 HIB Vaccines Aged Out No longer eligi [...] 5 Years) and At-Risk Patients (6 to 49 Years) Aged Out No longer eligible b ased on patient's age to complete this topic RSV Immunization Patients Un marvin 20 months Aged Out No longer eligible b ased on patient's age to complete this topic Varicella Vaccines Aged Out No longer eligible based on patient's age to complete this topic
--- OUTSIDE RECORDS SUMMARY | 2025-08-13 18:24 | XMS_ITS | Clinical Summary ---
Author Organization [employer] Address [address] [facility] [address] [place] [address] Care Team Providers Care Solution Strategist Name Role Phone Unavailable Primary Care Provider [...] Date Last Done Comments Depression Screening 1994 Disability Screening 1994 Alcohol/Substance Use Screening 2006 Tobacco Screening 2006 Family Planning (PISQ) 2009 HPV Vaccines (1 - 3-dose series) 2009 DTaP/Tdap/Td Vaccines (1 - Tdap) 2013 Hepatitis B Vaccines (1 of 3 - 19+ 3-dose series) 2013 Pap Smear 2015 Cervical Cancer Screening 2024 HPV/Cotest 2024 COVID-19 Vaccine (1 - 2023-2 5 season) 2025 Influenza Vaccine (#1) 2025 Zoster Vaccines (1 of 2) 2044 RSV Patients and Pa tients Aged 60 years or older (1 - 1-dose 75+ series) 2069 HIB [...] Years) and At-Risk Patients (6 to 49) Years Aged Out No longer eligible b ased on patient's age to complete this topic RSV under 20 months Aged Out No longe r eligible based on patient's age to complete this topic Rotavirus Vaccines Aged Out No longer eligible based on patient's age to complete this topic
== END 2025-08-13 15:56 | disposition home or self-care (01) ==
LOC: HO.HWS 14:32
PROVIDERS: PCP Nurse Practitioner Family; Visit Provider Advanced Practice Midwife
DX: D21.9 Benign neoplasm of connective and other soft tissue, unspecified (principal); R10.20 Pelvic and perineal pain unspecified side; Z32.02 Encounter for pregnancy test, result negative
CPT/HCPCS: 99213

== ENCOUNTER 2025-08-13 14:32 | Outpatient (REF) | payer OTHER, SELFPAY ==
[2025-08-14 05:43] LABS: Bacterial Vaginosis PCR POSITIVE (Negative); Candida Group PCR NOT DETECTED (Not Detect); Candida glab krusei PCR NOT DETECTED (Not Detect); Trichomonas vaginalis PCR NOT DETECTED (Not Detect)
[2025-08-14 06:14] LABS: CT PCR NOT DETECTED (Not Detect.); NG PCR NOT DETECTED (Not Detect.)
== END 2025-08-13 14:33 | disposition home or self-care (01) ==
LOC: HO.LNP 14:32
PROVIDERS: PCP Nurse Practitioner Family; Visit Provider Advanced Practice Midwife
DX: D21.9 Benign neoplasm of connective and other soft tissue, unspecified (principal); N93.9 Abnormal uterine and vaginal bleeding, unspecified; R10.20 Pelvic and perineal pain unspecified side; Z32.02 Encounter for pregnancy test, result negative; Z20.2 Contact with and (suspected) exposure to infections with a predominantly sexual mode of transmission
CPT/HCPCS: 81003; 81025; 81515; 87086; 87491; 87591; 99212

== ENCOUNTER 2025-08-13 15:47 | Outpatient (REF) | payer OTHER, SELFPAY | END 2025-08-13 15:48 | disposition home or self-care (01) | LOC: HO.LAB 15:47 | PROVIDERS: Visit Provider Advanced Practice Midwife | DX: Z13.89 Encounter for screening for other disorder (principal) ==

== ENCOUNTER 2025-08-18 12:25 | Outpatient (REF) | payer OTHER, SELFPAY ==
--- OUTSIDE RECORDS SUMMARY | 2025-08-18 15:42 | XMS_ITS | Clinical Summary ---
[facility] Organization [facility] Address [address] [place] [address] Care Team Providers Care It Senior Software Engineer Java Name Role Phone Unavailable Primary Care Provider [...]
--- OUTSIDE RECORDS SUMMARY | 2025-08-18 15:42 | XMS_ITS | Clinical Summary ---
Author Organization [employer] Address [address] [facility] [address] [place] [address] Care Team Providers Care Equipment Inspector Name Role Phone Unavailable Primary Care Provider [...]
== END 2025-08-18 12:26 | disposition home or self-care (01) ==
LOC: HO.LAB 12:25
PROVIDERS: Visit Provider Advanced Practice Midwife
DX: R35.0 Frequency of micturition (principal)
CPT/HCPCS: 87086

== ENCOUNTER 2025-08-26 13:07 | Outpatient (REF) | payer OTHER, SELFPAY ==
--- NOTE | ~2025-08-26 | US_ITS ---
CLINICAL HISTORY: D21.9 - Benign neoplasm of connective and other soft tissue, unspecified US pelvis transabdominal and transvaginal Comparison: None provided Findings: Transabdominal scanning performed for overall anatomy. Transvaginal scanning performed for additional detail. Mass in the right aspect of the uterus measuring 5.8 x 4.3 x 6 cm which most commonly represents a fibroid. Uterus is 10.7 x 7.1 x 8.7 cm. Uterus is retroverted and retroflexed. Endometrium is 0.9 cm in thickness. Trace amount of fluid in the endometrium. Correlation with patient's symptoms and patient's menstrual cycle is recommended. Right ovary is 3.7 x 2.3 x 2.6 cm for a volume of 11.7 mL. Left ovary is 4.7 x 4.8 x 4.4 cm. Cyst in the left ovary measuring 4.3 x 3.6 x 4.2 cm with an internal septation. No associated flow on color Doppler imaging. No solid component. O-RADS category 2. Follow-up pelvic ultrasound in 6 months. Clinical management with front office secretary as needed. Normal color Doppler of both ovaries. Total uterine volume 180 mL. Small amount of fluid in the cul-de-sac. IMPRESSION: 1. Mass in the right aspect of the uterus measuring 5.8 x 4.3 x 6 cm which most commonly represents a fibroid. 2. Trace amount of fluid in the endometrium. Correlation with patient's symptoms and patient's menstrual cycle is recommended. 3. Cyst in the left ovary measuring 4.3 x 3.6 x 4.2 cm with an internal septation. No associated flow on color Doppler imaging. No solid component. O-RADS category 2. Follow-up pelvic ultrasound in 6 months. Clinical management with front office secretary as needed. This document has been electronically signed by: Antione Maza DO on 08/27/2025 11:07:25
--- OUTSIDE RECORDS SUMMARY | 2025-08-26 15:53 | XMS_ITS | Clinical Summary ---
Author [facility] Address [address] [place] [address] Care Team Providers Care Commercial Loan Processor Name Role Phone Unavailable Primary Care Provider [...]
--- OUTSIDE RECORDS SUMMARY | 2025-08-26 15:53 | XMS_ITS | Clinical Summary ---
Author Organization [employer] Address [address] [facility] [address] [place] [address] Care Team Providers Care Insulation And Flooring Assembler Name Role Phone Unavailable Primary Care Provider [...]
== END 2025-08-26 13:08 | disposition home or self-care (01) ==
LOC: HO.US 13:07
PROVIDERS: PCP Nurse Practitioner Family; Visit Provider Advanced Practice Midwife
DX: D21.9 Benign neoplasm of connective and other soft tissue, unspecified (principal)
CPT/HCPCS: 76830; 76856

== ENCOUNTER → 2025-08-26 13:10 | Outpatient (BNV) | payer OTHER, SELFPAY | PROVIDERS: PCP Nurse Practitioner Family; Visit Provider Family Medicine | DX: D25.9 Leiomyoma of uterus, unspecified (principal); N83.292 Other ovarian cyst, left side | CPT/HCPCS: 76830; 76856 ==

== ENCOUNTER 2025-09-09 10:07 | Outpatient (AMB) | payer OTHER, SELFPAY ==
--- OUTSIDE RECORDS SUMMARY | 2025-09-04 23:59 | XMS_ITS | Continuity of Care Document ---
Author Organization [facility] Address [address] [place] [address]- Care Team Providers Care Junior Linux Administrator Name Role Phone Amaya STRICKLAND, Madyson Esqueda Primary Care Physician [phone] [place] [facility] 08/05/25 - 09/04/25 [facility] [address] [place], [place] [phone] Encounter Type: Triage Allergies, Adverse Reactions, Alerts No Known Medication Allergies Immunizations Given and Recorded Vaccine Date Status Refusal Reason Human Papillomavirus Vaccine 08/14/16 Given Human Papillomavirus Vaccine 04/12/16 Given Human Papillomavirus Vaccine 02/11/16 Given influenza virus vaccine, inactivated 08/09/16 Give n Medications ferrous fumarate 325 mg oral tablet 1 tablet = 325 mg, By Mouth, Daily, # 30 tablet, 2 Refills, Maintenance, 07/31/25 8:34:00 AM EDT, Tablet, [facility]/pharm[facility] #[id number], Partial fill upon patient request if the prescription is for a schedule II opioid drug., 158, cm, 07/31/25 7:41:00 EDT, Height, 72.3, kg, 07/24/25 18:13:00 EDT, Dry Weight Start Date: 07/31/25 Status: Ordered Medication Dispense Status: Completed Quantity: 30.0 Unit: tablet Total Allowed Fills: 3 Fills Dispensed: 0 mesalamine 0.375 g oral capsule, extended release 4 capsule = 1.5 Gm, By Mouth, Daily in AM, # 120 capsule, 0 Refills, Maintenance, 07/24/25 4:42:00 PM EDT, CR Capsule, Partial fill upon patient request if the prescription is for a schedule II opioiddrug. Start Date: 07/24/25 Status: Ordered Medication Dispense Status: Completed Quantity: 120.0 Unit: capsule Total Allowed Fills: 1 Fills Dispensed: 0 predniSONE 10 mg oral tablet See Instructions, 40 mg daily for 7 days then 30 mg for 7 days then 20 mg for 7 days then 10 mg for7 days., # 70 tablet, 0 Refills, Maintenance, 07/31/25 8:21:00 AM EDT, Tablet, [facility]/pharmacy #[id number], Partial fill upon patient request if the prescription is for a schedule II opioid drug., 158, cm, 07/31/25 7:41:00 EDT, Height, 72.3, kg, 07/24/25 18:13:00 EDT, Dry Weight Start Date: 07/31/25 Status: Ordered Medication Dispense Status: Completed Quantity: 70.0 Unit: tablet Total Allowed Fills: 1 Fills Dispensed: 0 spironolactone 50 mg oral tablet 1 tablet = 50 mg, By Mouth, 2 times a day, # 180 tablet, 0 Refills, Maintenance, 07/24/25 4:43:00 PMEDT, Tablet, Partial fill upon patient request if the prescription is for a schedule II opioid drug. Start Date: 07/24/25 Status: Ordered Medication Dispense Status: Completed Quantity: 180.0 Unit: tablet Total Allowed Fills: 1 Fills Dispensed: 0 Problem List Condition Confirmation Course Effective Dates Status [facility] Informant Main spoken language Chilean Confirmed Active Patient Care team information Care Team Personnel Name: Lurdes Barriga RN Position: [facility] RN Member Role: Primary Care Nurse Name: Marisela Amaro Position: S RN Member Role: Primary Care Nurse Name: Sagrario Ramirez RN Position: S RN Member Role: Primary Care Nurse Name: Bhavana Garcia RN Position: S RN Member Role: Primary Care Nurse Name: Kady Carvajal RN Position: S RN Member Role: Primary Care Nurse Name: Grisel Vallejo RN Position: S RN Member Role: Primary Care Nurse Name: Maydson Conde NP Position: Reference Physician Member Role: PCP Address: [address] [place] [id number] Telecom: Name: Christiano Fine RN Position: Dorothy RN Member Role: Primary Care Nurse Care Team Related Persons Name: BURT ROBBY Name: UMAIR SANCHEZ Name: KORI SANCHEZ Insurance Providers Guarantor name: [facility] Plan Information #: 1 Payer: [employer] Payer Identifier: NA Member Number: [id number] Group Number: [id number] Subscriber Identifier: NA Relationship to Subscriber: self Coverage Type: NA Coverage Verification Date: NA Telecom: Address:
--- NOTE | 2025-09-09 10:13 | MHC.OFFVIS ---
Vital Signs 09/09/25 10:19 Height 5 ft 2 in Weight 157 lb BMI 28.7 BP 100/62 Intake Visit Reasons: ultrasound follow up Special Education Assistant Required: Yes Special Education Assistant Language: Shower Screen Installer Name: Giancarlo Jean755 Information Interpreted: non-clinical & clinical Allergies No Known Allergies (No Known Allergies*) Allergy (Verified 09/09/25 10:16) Is last menstrual period known: Yes Last menstrual period: 09/02/25 HPI Comments Details: Patient is here today for follow-up pelvic ultrasound, history of pelvic pain midline. She reports heavy menstrual bleeding for the last 5 months, heavier with clots last week. History of fibroids, ulcerative colitis with rectal bleeding, was seen 07/31/25 for abdominal pain at [facility] had a CT scan and pelvic ultrasound done, no copies available today. Admit note for that hospitalization available but not a discharge summary. [facility] Medical History (Updated 09/09/25 @ 16:07 by Sylwia Alvarado CNM) IUD (intrauterine device) in place Ulcerative colitis Fibroid Anxiety Anemia Surgical History H/O bilateral salpingectomy H/O tubal ligation Hx of myomectomy History of hysteroscopy Hx of section Family History Family/Other History of breast cancer in female Father Hypertension History of prostate cancer Mother Hypertension Hx of diabetes mellitus Hx of cancer of lung Asthma Sister Hypertension Hx of thyroid disease Maternal Grandfather Hypertension Hx of cancer of lung Maternal Grandmother Hypertension Hx of cardiovascular disorder Paternal Grandfather Hypertension Paternal Grandmother Hypertension Maternal Uncle Colon cancer Other Mental health disorder Social History Housing: House Alcohol intake: never Patient Tobacco Use Status: Never used Tobacco e-Cigarette/Vaping Use: Never Used Second Hand Smoke Exposure: No service: No Current occupational status: unemployed Current occupational exposures/hazards: No Sexual orientation: Straight/Heterosexual Gender identity: Female Cognitive needs: No Hearing needs: No Vision needs: Yes Female Reproductive History Menstrual Age of Menarche: 12 Date of last menstrual period: 09/02/25 Review of Systems Const All systems reviewed & are unremarkable except as noted in HPI and below Physical Exam Vital Signs: Last Vital Signs BP 100/62 09/09/25 10:19 BMI result Body Mass Index 28.7 Const General: cooperative, healthy appearing and no acute distress Orientation/consciousness: patient oriented x3 GI Inspection: Yes normal to inspection Palpation (GI): Soft to palpation and Other GI palpation findings present (Nontender) Rectal Exam - Female: visual inspection normal General: Yes bladder normal to palpation External Female Exam: normal appearance of the urethra Speculum Exam - Vagina: normal appearance of the vagina, normal palpation, normal vaginal discharge and vaginal bleeding Speculum Exam - Cervix: normal appearance of the cervix and normal palpation Bimanual exam- vagina & uterus: normal bimanual exam, normal palpation, uterine size normal, bladder normal to palpation, normal palpation, uterine shape normal and non-tender Bimanual Exam- Adnexa, other: normal adnexae OB/external & speculum: vaginal bleeding Neuro General: patient oriented x3 Office Procedures IUD Insert/Removal Details 16554-ERK Insertion Procedure code (CPT) selection complete IUD Insert/Removal Details Details: The patient is here today for a Mirena IUD insertion for AUB. She was counseled on the side effects including: menstrual cycle changes, pain, infection, bleeding, or expulsion. Risks of injury to the vagina, cervix, uterus, tubes, ovaries, bowel, bladder, and any adjacent tissue, resulting in nerve damage, scarring, and pain. Risks complications for the procedure that may require other test including ultrasounds, Xray, CT or MRI scan, surgery, anesthesia, blood transfusion. A urine test was completed and was negative. She was consented for the IUD insertion and has signed the consent form. All questions were answered. IUD Insertion: The patient was placed in the dorsal lithotomy position and a sterile speculum was inserted. The procedure was completed under aseptic technique. The cervix and vagina were cleansed with a Betadine solution x 3 swabs. A single toothed tenaculum was applied to the cervix for stabilization, and the uterus was sounded to 8 cm. The device was inserted and released with a gentle motion. Bleeding from the tenaculum sites and the procedure were minimal. The strings were trimmed to 3cm. All of the equipment was removed and the bimanual was normal, no tip was palpable at the cervical os. The patient tolerated the procedure well and left the office in good condition. Post IUD Insertion Care: There may be some post insertion bleeding for several days that is usually light and can turn to a light brown or pink in color. Mild cramping may occur. Nothing in the vagina including: tampons, douching or intimacy for several days. You may take an over the counter mild analgesia like Tylenol or Advil (if no allergies), per the manufacturers recommendations on dosing and frequency. Follow the directions completely. Call the office if any: fever (over 100.4), flu like symptoms, abdominal pain, worsening cramping not resolved with over the counter medications, foul smelling vaginal odor, signs of infected appearing discharge, or heavy bleeding. Use a condom for a back up method if indicated for 7 days. Always use a condom for STI prevention; IUD's are not protective against STD's. Return to the office in 4-6 weeks for IUD recheck. This note is constructed using voice recognition software. While every effort has been made to ensure accuracy, applications instructor errors may have been included. [id number]-[id number] Insertion Procedure code (CPT) selection complete Office Meds Mirena 21 mcg/24 hr (up to 8 years) 52 mg intrauterine device Performing Provider: Sylwia Alvarado CNM Performing Location: [facility] Administered by: KENDRICK Jones on 09/09/25 11:38 Dose Route Admin Location Dispensed Lot Number Expiration Date [facility] Money Manager 1 device intrauterine 1 device [id number] 08/21/27 92165-201-20 [employer] Total Dispensed Waste 1 device 0 % Results AMB Test Urine AMB Test Urine Negative Last Edit by KENDRICK Jones on 09/09/25 11:11 Results Reviewed Results Reviewed: Laboratory Last Values [facility] Clinic Negative 09/09/25 11:11 Assessment & Plan Assessment & Plan (1) Abnormal uterine bleeding (AUB): Code(s): N93.9 - Abnormal uterine and vaginal bleeding, unspecified Category: Medical Plan: Discussed: Ultrasound findings- IMPRESSION: 1. Mass in the right aspect of the uterus measuring 5.8 x 4.3 x 6 cm which most commonly represents a fibroid. 2. Trace amount of fluid in the endometrium. Correlation with patient's symptoms and patient's menstrual cycle is recommended. 3. Cyst in the left ovary measuring 4.3 x 3.6 x 4.2 cm with an internal septation. No associated flow on color Doppler imaging. No solid component. O-RADS category 2. Follow-up pelvic ultrasound in 6 months. Clinical management with skilled trades teacher as needed. Counseled regarding treatment for AUB options. She prefers to have Mirena IUD inserted today. Counseled regarding IUD use side effects risks benefits. IUD procedure completed today. See procedure notes. (2) Fibroid: Comment: Right side 6 cm Code(s): D21.9 - Benign neoplasm of connective and other soft tissue, unspecified Category: Medical Plan: Counseled re: Leiomyoma: common pelvic neoplasm. Differential diagnosis-may include but not limited to- leiomyosarcoma which is a rare uterine sarcoma 3-7/100,000, difficult to distinguish from fibroids on ultrasound from uterine sarcoma's. Unlikely any single test will have a highly positive predictive value. Hysterectomy is not recommended for sole purpose of excluding malignant neoplasm. Consult for surgical exploration, medical treatment, other treatments, verses expectant management, pros and cons, risks and benefits. Expectant management follow up in 6 months, then yearly for stability. Patient prefers to proceed with expectant management. Referral to MD if indicated for level of care if indicated Report any AUB, pelvic pressure, bloating, or increase pain. The patient expressed understanding and agreement with the plan of care. All of her questions and concerns were addressed to the best of my ability. (3) Ovarian cyst: Comment: Left side 4.3cm Code(s): N83.209 - Unspecified ovarian cyst, unspecified side Category: Medical Qualifiers: Laterality: left Qualified Code(s): N83.202 - Unspecified ovarian cyst, left side Plan: Counseled regarding findings of: Complex ovarian cyst, which is often benign, and most resolve on their own overtime. Some develop into premalignant or malignant tumors. Limitations of testing for diagnostic purposes. Further monitoring and evaluation is recommended with US, possible CT, or MRI study. If persists, or is indicated (Ca-125, Carbohydrate Antigen 19-9, & Carcinoembryonic Antigen) labs will be ordered and referral to [facility] or general gynecology for MD care if indicated for possible surgical consult. Follow up in person for test results. Call sooner if there is any increase in pelvic or other concerns. All of her questions and concerns were addressed to the best of my ability and shared decision making. She is agreeable to the plan of care. This note is constructed using voice recognition software. While every effort has been made to ensure accuracy, applications instructor errors may have been included. Plan This note is constructed using voice recognition software. While every effort has been made to ensure accuracy, applications instructor errors may have been included. Orders: Orders Complete Blood Count no Diff Today N93.9 - Abnormal uterine and vaginal bleeding, unspecified Thyroid Stimulating Hormone Today N92.1 - Excessive and frequent menstruation with irregular cycle, N93.9 - Abnormal uterine and vaginal bleeding, unspecified US pelvic and transvaginal 1 Month N83.209 - Unspecified ovarian cyst, unspecified side AMB HCG Urine Test Today Z32.02 - Encounter for test, result negative AMB IUD Insertion/Removal - Practice Supplied Today N93.9 - Abnormal uterine and vaginal bleeding, unspecified, Z30.430 - Encounter for insertion of intrauterine contraceptive device Medications: New acetaminophen (Tylenol) take as directed 650 mg (2 x 325 mg) PO QID PRN 60 tabs 0RF pain Coding Level of Care Code Procedure Only Diagnoses Abnormal uterine bleeding (AUB) N93.9 Fibroid D21.9 Cyst of left ovary N83.202 Laterality: left CPT Codes Details - CPT: 21292-YFT Insertion ([id number]) Details - CPT: 11229-GYN Insertion ([id number])
[2025-09-09 10:19] VITALS: BP 100/62; BMI 28.7
--- OUTSIDE RECORDS SUMMARY | 2025-09-09 19:10 | XMS_ITS | Clinical Summary ---
Author Organization [employer] Address [address] [facility] [address] [place] [address] Care Team Providers Care Manager Action Name Role Phone Unavailable Primary Care Provider [...] 2024 HPV/Cotest 2024 COVID-19 Vaccine (1 - 2024-2 6 season) 2025 Influenza Vaccine (#1) 2025 Zoster [...]
--- OUTSIDE RECORDS SUMMARY | 2025-09-09 19:10 | XMS_ITS | Clinical Summary ---
Author Organization [facility] Address [address] [place] [address] Care Team Providers Care Sql Database Programmer Name Role Phone Unavailable Primary Care Provider [...] Depression Screening 10/22/2024 COVID-19 Vaccine (1 - 2024-2 6 season) 2025 Influenza Vaccine (#1) 2025 RSV [...]
== END 2025-09-09 12:37 | disposition home or self-care (01) ==
LOC: HO.HWS 10:08
PROVIDERS: PCP Nurse Practitioner Family; Visit Provider Advanced Practice Midwife
DX: N93.9 Abnormal uterine and vaginal bleeding, unspecified (principal); D21.9 Benign neoplasm of connective and other soft tissue, unspecified; N83.202 Unspecified ovarian cyst, left side; Z30.430 Encounter for insertion of intrauterine contraceptive device; Z32.02 Encounter for pregnancy test, result negative
CPT/HCPCS: 58300

== ENCOUNTER 2025-09-09 10:07 | Outpatient (REF) | payer OTHER, SELFPAY ==
[2025-09-09 12:45] LABS: Hematocrit 38.0 % (37.0-47.0); Hemoglobin 11.5 g/dl (12.0-16.0); Mean Corpuscular HGB Conc 30.3 g/dl (31.0-35.0); Mean Corpuscular Hemoglobin 22.3 pg (27.0-33.0); Mean Corpuscular Volume 73.8 fL (80.0-98.0); NRBC Abs Auto 0.000 X10*3/uL (0.0-0.012); NRBC Pct Auto 0.0 /100WBC (0.0-0.2); Platelet Count 387 X10*3/uL (160-400); Red Blood Count 5.15 X10*6/uL (4.20-5.50); White Blood Count 9.3 X10*3/uL (4.8-10.8)
[2025-09-09 13:55] LABS: Thyroid Stimulating Hormone 0.63 uIU/mL (0.32-4.0)
== END 2025-09-09 10:08 | disposition home or self-care (01) ==
LOC: HO.LAB 10:07
PROVIDERS: PCP Nurse Practitioner Family; Visit Provider Advanced Practice Midwife
DX: N92.1 Excessive and frequent menstruation with irregular cycle (principal); D25.9 Leiomyoma of uterus, unspecified; N83.202 Unspecified ovarian cyst, left side; N93.9 Abnormal uterine and vaginal bleeding, unspecified; Z32.02 Encounter for pregnancy test, result negative; Z30.430 Encounter for insertion of intrauterine contraceptive device; Z98.51 Tubal ligation status
CPT/HCPCS: 36415; 58300; 81025; 84443; 85027; J7298

== ENCOUNTER 2025-10-09 13:38 | Outpatient (REF) | payer OTHER, SELFPAY ==
--- NOTE | ~2025-10-09 | US_ITS ---
EXAMINATION: US PELVIS CLINICAL INFORMATION: Ovarian cyst, unspecified side. COMPARISON: Pelvic ultrasound 08/26/2025. Correlation made with CT abdomen pelvis 04/27/2024. TECHNIQUE: Ultrasound of the pelvis is performed using both transabdominal and transvaginal transducers along with Doppler. Transvaginal imaging is performed due to inadequate visualization transabdominally. FINDINGS: Uterus: The uterus is anteverted, retroflexed, and measures 15.7 x 6.6 x 7.5 cm. The cervix appears grossly normal. The double wall endometrial thickness is approximately 9 mm. IUD appears appropriately situated. The uterus is smooth in contour and has heterogeneous myometrial echogenicity. There are 2 visible uterine fibroids: -Dominant right cornual intramural fibroid measuring 6.1 x 5.5 x 5.9 cm (grossly stable previously measuring 5.8 x 4.3 x 6.0 cm). -There is a small subserosal mid uterine segment ventral fibroid measuring 1.4 x 1.0 x 1.3 cm, not previously seen. Adnexa: Both ovaries are visualized. There is normal color flow to the adnexa. There is no ovarian torsion. There is no pelvic ascites or fluid collection. There are no adnexal masses. Right ovary measures 3.0 x 1.8 x 2.7 cm. Volume = 7.6 mL. Normal sonographic appearance. Left ovary measures 6.4 x 5.0 x 5.5 cm. Volume = 92.2 mL. There is a large simple cyst measuring 5.4 x 4.0 x 4.2 cm. No internal echoes or complexities visualized. US/US pelvic and transvaginal IMPRESSION: 1. IUD appears appropriately positioned. No endometrial thickening. 2. There are 2 uterine fibroids as discussed, the larger in the right cornual region measuring 6.1 x 5.5 x 5.9 cm, grossly stable from CT examination dated 04/27/2024. 3. There is a simple left ovarian cyst measuring 5.4 cm. There are no internal echoes or complexity. One-year follow-up recommended as per SRU consensus recommendations. Electronically signed by: Alonzo Beth MD 10/09/2025 02:45 PM [facility]
--- OUTSIDE RECORDS SUMMARY | 2025-10-09 15:21 | XMS_ITS | Clinical Summary ---
Author Organization [employer] Address [address] [facility] [address] [place] [address] Care Team Providers Care Vice President Lending Name Role Phone Unavailable Primary Care Provider [...]
--- OUTSIDE RECORDS SUMMARY | 2025-10-09 15:21 | XMS_ITS | Clinical Summary ---
Author Organization [facility] Address [address] [place] [address] Care Team Providers Care Protective Signal Operations Supervisor Name Role Phone Unavailable Primary Care Provider [...]
== END 2025-10-09 13:39 | disposition home or self-care (01) ==
LOC: HO.US 13:38
PROVIDERS: PCP Nurse Practitioner Family; Visit Provider Advanced Practice Midwife
DX: N83.292 Other ovarian cyst, left side (principal)
CPT/HCPCS: 76830; 76856

== ENCOUNTER → 2025-10-09 13:39 | Outpatient (BNV) | payer OTHER, SELFPAY | PROVIDERS: PCP Nurse Practitioner Family; Visit Provider Radiology Diagnostic Radiology | DX: N83.292 Other ovarian cyst, left side (principal); D25.9 Leiomyoma of uterus, unspecified | CPT/HCPCS: 76830; 76856 ==